=== PATIENT | female | born 1975 | race African-American/Black ===

== ENCOUNTER 2017-01-01 03:51 | Observation (INO) | payer MEDICAID ==
[2017-01-01] VITALS (7 sets, daily range): BP systolic 110–131; BP diastolic 60–72; PULSE 71–88; RESP 16–18; TEMP 97.6–98.2; O2SAT 95–98
[~2017-01-01] VITALS: Ht 152.4 cm; Wt 104.7 kg
[~2017-01-01 03:51] MED LIST: ALBU0.08 NEB; ALBUAER3 INH; ASPI1TAB93; AZEL1SPR2 EACH NARE; BUPR150T3 PO; DULE200A INH; FLUT50SP EACH NARE; GABA600T PO; HYDR-3533 PO; LAMO100T68 PO; LAMO25TA PO; MECL-62 PO; MONT10TA2 PO; NEBUKIT5; NEBULIZER/ADULT1 KIT; PANT40TA3 PO; PRAZ1CAP PO; PROM50TA4 PO; RIZA10TA2; SODI0.9N3 INH; TERI14TA PO; TRAZ100T6 PO; VALT1TAB PO
--- NOTE | 2017-01-01 04:31 | PD ---
HPI Chief Complaint: Pain: Acute or Chronic Time Seen by Provider: 04:17 Travel History International Travel<30 days: No Contact w/Intl Traveler<30days: No Traveled to known affect area: No History of Present Illness HPI The patient is a 41-year-old female that was diagnosed with multiple sclerosis in September. She complains of pain all over her body. This is gradually getting worse in the last 2 days. She has been taking hydrocodone 5/325 every 3 hours instead of every 6 hours. The gabapentin was increased to 600 mg 3 times daily. She feels dehydrated. There is been no fever,, vomiting or diarrhea. She had nausea last night, 24 hours ago. She is allergic to oxycodone but states she has had tramadol and Dilaudid in the past without a problem. PFSH Past Medical History Asthma: Yes Blood Disorders: No Anxiety: No Depression: No Heart Rhythm Problems: No Cancer: No Cardiovascular Problems: No High Cholesterol: No Chest Pain: No Congestive Heart Failure: No COPD: Yes Diabetes: No Diminished Hearing: No Endocrine: No Genitourinary: No Hepatitis: No Hiatal Hernia: No Immune Disorder: No Medical other: Yes (MULTIPLE SCLEROSIS) Musculoskeletal: No Neurologic: Yes (MIGRAINES) Psychiatric: No Reproductive: Yes (HEAVY BLEEDING) Respiratory: Yes (ASTHMA) Migraines: Yes Sleep Apnea: No Thyroid Disease: No Tetanus Vaccination: > 5 Years ?: Not LMP: "LAST MONTH" : 8 Para: 3 Miscarriage: 5 Past Surgical History Section: Yes (x3) Cholecystectomy: Yes Joint Replacement: No Pacemaker: No Tonsillectomy: Yes Other Surgery: Yes ( X3, CHOLECYSTECTOMY, TONSILLECTOMY) Social History Alcohol Use: No Tobacco Use: No Substance Use: No Allergies-Medications (Allergen,Severity, Reaction): Coded Allergies: acetaminophen (Unverified Allergy, Intermediate, RASH, 01/01/17) oxycodone (Unverified Allergy, Intermediate, RASH, 01/01/17) Reported Meds & Prescriptions Reported Meds & Active Scripts Active Proair Hfa 8.5 GM Inh (Albuterol Sulfate) 90 Mcg/Act Aer 1 Puff INH Q4H PRN 108 mcg/actuation Pantoprazole (Pantoprazole Sodium) 40 Mg Tab 40 Mg PO DAILY It is recommended that you do not take this medication for more than 2 weeks at a time. Meclizine (Meclizine HCl) 25 Mg Tab 25 Mg PO DIRECTED PRN Valtrex (Valacyclovir HCl) 1 Gm Tab 1,000 Mg PO DAILY Dulera 120 Act Inh (Mometasone-Formoterol 120 Act Inh) 200-5 Mcg/Act Inh 2 Puff INH BID Fluticasone Nasal [place] 50 Mcg/Act Naspr 50 Mcg EACH NARE BID 50 mcg/spray Albuterol Neb (Albuterol Sulfate) 2.5 Mg/3 Ml Neb 2.5 Mg NEB Q4HR NEB While awake Singulair (Montelukast Sodium) 10 Mg Tab 10 Mg PO HS Sodium Chloride Neb (Sodium Chloride) 0.9 % Neb 3 Ml INH BID Nebulizer Kit/Tubing/Mout (N/A) 1 Kit Kit 1 Kit .ROUTE DIRECTED Nebulizer/Adult Mask (N/A) 1 Kit Kit 1 Kit .ROUTE DIRECTED Azelastine Nasal [place] (Azelastine HCl) 0.1% [place] 1 [place] EACH NARE BID Reported Gabapentin 600 Mg Tab 600 Mg PO TID Excedrin Extra Strength (Qphgnwn-Huvamgfoayocj-Dzmrbyql) 1 Tab Tab Rizatriptan (Rizatriptan Benzoate) 10 Mg Tab Prazosin (Prazosin HCl) 1 Mg Cap 1 Mg PO HS Trazodone (Trazodone HCl) 100 Mg Tablet 200 Mg PO HS Lamotrigine ER (Lamotrigine) 100 Mg Joesph 100 Mg PO DAILY Promethazine HCl 50 Mg Tablet 25 Mg PO TID Aubagio (Teriflunomide) 14 Mg Tab 14 Mg PO DAILY Lamotrigine 25 Mg Tab 25 Mg PO DAILY Bupropion HCl ER 24 HR (Bupropion HCl) 150 Mg Tab 150 Mg PO DAILY Lortab (Hydrocodone-Acetaminophen) 5-325 Mg Tab 1 Tab PO Q6H PRN Review of Systems Except as stated in HPI: all other systems reviewed are Neg Physical Exam Narrative GENERAL: The patient is obese, alert, oriented 3 in moderate to severe distress with her pain. Her vital signs are normal. SKIN: Focused skin assessment warm/dry. No skin rash is present. HEAD: Atraumatic. Normocephalic. EYES: Pupils equal and round. No scleral icterus. No injection or drainage. ENT: No nasal bleeding or discharge. Mucous membranes pink and moist. NECK: Trachea midline. No JVD. CARDIOVASCULAR: Regular rate and rhythm. No murmur appreciated. RESPIRATORY: No accessory muscle use. Clear to auscultation. Breath sounds equal bilaterally. GASTROINTESTINAL: Abdomen soft, non-tender, nondistended. Hepatic and splenic margins not palpable. No guarding or rebound is present. MUSCULOSKELETAL: No obvious deformities. No clubbing. No cyanosis. No edema. NEUROLOGICAL: Awake and alert. No obvious cranial nerve deficits. Motor grossly within normal limits. Normal speech. PSYCHIATRIC: The patient is extremely anxious.; insight and judgment normal. Data Data Last Documented VS Vital Signs Date Time Temp Pulse Resp B/P Pulse Ox O2 Delivery O2 Flow Rate FiO2 01/01/17 05:51 82 18 121/64 98 Room Air 01/01/17 04:00 98.2 Orders Complete Blood Count With Diff (01/01/17 04:26) Comprehensive Metabolic Panel (01/01/17 04:26) Lipase (01/01/17 04:26) Hydromorphone Pf Inj (Dilaudid Pf Inj) (01/01/17 04:45) Ondansetron Inj (Zofran Inj) (01/01/17 04:45) Sodium Chlor 0.9% 1000 Ml Inj (Ns 1000 M (01/01/17 04:45) Ondansetron Inj (Zofran Inj) (01/01/17 05:15) Hydromorphone Pf Inj (Dilaudid Pf Inj) (01/01/17 05:15) Hydromorphone Pf Inj (Dilaudid Pf Inj) (01/01/17 06:30) Labs Laboratory Tests Test 01/01/17 04:35 White Blood Count 5.3 TH/MM3 Red Blood Count 4.17 MIL/MM3 Hemoglobin 11.3 GM/DL Hematocrit 34.9 % Mean Corpuscular Volume 83.7 FL Mean Corpuscular Hemoglobin 27.0 PG Mean Corpuscular Hemoglobin 32.3 % Concent Red Cell Distribution Width 16.1 % Platelet Count 201 TH/MM3 Mean Platelet Volume 8.3 FL Neutrophils (%) (Auto) 37.9 % Lymphocytes (%) (Auto) 48.4 % Monocytes (%) (Auto) 9.7 % Eosinophils (%) (Auto) 3.7 % Basophils (%) (Auto) 0.3 % Neutrophils # (Auto) 2.0 TH/MM3 Lymphocytes # (Auto) 2.6 TH/MM3 Monocytes # (Auto) 0.5 TH/MM3 Eosinophils # (Auto) 0.2 TH/MM3 Basophils # (Auto) 0.0 TH/MM3 CBC Comment DIFF FINAL Differential Comment Sodium Level 139 MEQ/L Potassium Level 3.8 MEQ/L Chloride Level 109 MEQ/L Carbon Dioxide Level 23.0 MEQ/L Anion Gap 7 MEQ/L Blood Urea Nitrogen 10 MG/DL Creatinine 0.99 MG/DL Estimat Glomerular Filtration 74 ML/MIN Rate Random Glucose 90 MG/DL Calcium Level 8.1 MG/DL Total Bilirubin 0.2 MG/DL Aspartate Amino Transf 20 U/L (AST/SGOT) Alanine Aminotransferase 25 U/L (ALT/SGPT) Alkaline Phosphatase 90 U/L Total Protein 7.1 GM/DL Albumin 3.2 GM/DL Lipase 61 U/L MDM Medical Decision Making Medical Screen Exam Complete: Yes Emergency Medical Condition: Yes Medical Record Reviewed: Yes Differential Diagnosis Multiple sclerosis with intractable pain, drug seeking behaviorunlikely, anxiety, conversion reaction Narrative Course The patient's pain appears to be real. She has been given 2.5 mg of Dilaudid IV and she still states the pain is a 10 over 10. At this point I do not think we can increase the Dilaudid and send her home. The patient will be admitted to the [facility] service. Diagnosis Primary Impression: Multiple sclerosis Additional Impression: Intractable pain Spencer Domingo MD Jan 01, 2017 04:31
[2017-01-01] MEDS: SODIUM CHLOR 0.9% 1000 ML INJ 1,000 ML IV SCH ×2 (04:44→05:03)
[2017-01-01 04:45] LABS: BASOPHIL % 0.3 % (0.0-2.0); EOSINOPHIL # 0.2 TH/MM3 (0-0.4); EOSINOPHIL % 3.7 % (0.0-4.0); HEMATOCRIT 34.9 % (35.0-46.0); HEMO FLAGS DIFF FINAL; LYMPH % 48.4 % (9.0-44.0); LYMPHOCYTE # 2.6 TH/MM3 (1.0-4.8); MEAN CELL VOLUME 83.7 FL (80.0-100.0); MEAN CORPUSCULAR HGB CONC 32.3 % (32.0-36.0); MONO % 9.7 % (0.0-8.0); NEUT % 37.9 % (16.0-70.0); PLATELET COUNT 201 TH/MM3 (150-450); RED BLOOD COUNT 4.17 MIL/MM3 (4.00-5.30); RED CELL DISTRIBUTION WIDTH 16.1 % (11.6-17.2); WHITE BLOOD COUNT 5.3 TH/MM3 (4.0-11.0)
[2017-01-01] MEDS ORDERED: HYDROmorphone HCL PF 1 MG/ML VIAL IVP ONE ×3 (04:45→06:30)
[2017-01-01] MEDS ORDERED: ONDANSETRON HCL 4 MG/2 ML VIAL IV ONE ×2 (04:45→05:15)
[2017-01-01 04:57] LABS: CHLORIDE 109 MEQ/L (98-107); POTASSIUM 3.8 MEQ/L (3.5-5.1); SODIUM (NA) 139 MEQ/L (136-145)
[2017-01-01 05:01] LABS: ANION GAP 7 MEQ/L (5-15); BLOOD UREA NITROGEN 10 MG/DL (7-18)
[2017-01-01 05:03] LABS: ALT (GPT) 25 U/L (10-53)
[2017-01-01 05:04] LABS: AST (GOT) 20 U/L (15-37); GLOMERULAR FILTRATION RATE 74 ML/MIN (>89)
[2017-01-01 05:05] LABS: TOTAL BILIRUBIN ADULT 0.2 MG/DL (0.2-1.0)
[2017-01-01 05:06] LABS: ALKALINE PHOSPHATASE 90 U/L (45-117)
[2017-01-01] MEDS ORDERED: SODIUM CHLOR 0.9% 1000 ML INJ 1,000 ML IV SCH (06:37)
[2017-01-01] MEDS ORDERED: BISACODYL 10 MG SUPP RECTAL PRN (06:45)
[2017-01-01] MEDS ORDERED: HYDROmorphone HCL 2 MG TAB PO PRN (06:45)
[2017-01-01] MEDS ORDERED: MAGNESIUM HYDROXIDE SUSP 30 ML CUP PO PRN (06:45)
[2017-01-01] MEDS ORDERED: ONDANSETRON HCL 4 MG/2 ML VIAL IVP PRN (06:45)
[2017-01-01] MEDS ORDERED: SODIUM CHLORIDE 0.9% FLUSH 10 ML FLUSH IV FLUSH PRN (06:45)
[2017-01-01] MEDS ORDERED: SENNOSIDES 8.6 MG TAB PO PRN (06:45)
[2017-01-01] MEDS ORDERED: LACTULOSE SYRUP 20 GM/30 ML CUP PO PRN (06:45)
[2017-01-01] MEDS: HYDROmorphone HCL PF 1 MG/ML VIAL IV PRN ×2 (07:47→11:35)
[2017-01-01] MEDS: RESP: ALBUTEROL 2.5 MG/3 ML NEB (SCH) NEB ×2 (08:10→11:47)
[2017-01-01] MEDS ORDERED: PANTOPRAZOLE SOD 40 MG DELAYED RELEASE TAB PO SCH (09:00)
[2017-01-01] MEDS ORDERED: lamoTRIgine 25 MG TAB PO SCH (09:00)
[2017-01-01] MEDS ORDERED: SODIUM CHLORIDE 0.9% FLUSH 10 ML FLUSH IV FLUSH SCH (09:00)
[2017-01-01] MEDS ORDERED: FLUTICASONE PROPIONATE 50 MCG/ACT 16 GM NASAL SPRAY EACH NARE SCH (09:00)
[2017-01-01] MEDS ORDERED: buPROPion HCL 150 MG SUSTAINED RELEASE TAB PO SCH (09:00)
[2017-01-01] MEDS ORDERED: GABAPENTIN 300 MG CAP PO SCH (09:00)
[2017-01-01] MEDS ORDERED: DOCUSATE SODIUM 50 MG/SENNA 8.6 MG TAB PO SCH (09:00)
[2017-01-01] MEDS ORDERED: MOMETASONE FORMOTEROL INH SCH (09:00)
[2017-01-01] MEDS ORDERED: LAMOTRIGINE 100 MG PO SCH (09:00)
[2017-01-01] MEDS ORDERED: TERIFLUNOMIDE 14 MG PO SCH (09:00)
--- NOTE | 2017-01-01 10:44 | HHI.HP ---
[facility] Candace Pena MD Admission Diagnosis multiple sclerosis with intractable pain Diagnoses: (1) Intractable pain Diagnosis: Principal (2) Multiple sclerosis Diagnosis: Secondary Chief Complaint: Intractable pain Travel History International Travel<30 Days: No Contact w/Intl Traveler <30 Da: No Traveled to Known Affected Are: No History of Present Illness Written by Anthony Hensley, acting as scribe for Dr. Clemente on 01/01/17 at 10: 34. 41-year-old Romanian female with known history of multiple cirrhosis, COPD, vertigo, bipolar, anxiety who presented to hospital because of intractable pain. Patient states that she has had chronic pain since June 2013. She has had multiple evaluations in outpatient setting and recently been diagnosed with multiple sclerosis on October 08, 2016 by neurologist, Dr. Loomis. Patient pain was tolerable when she was on oxycodone and Neurontin, however the pain has progressively getting worse and she is started physical therapy several weeks ago. And her medication was just adjusted by her neurologist. Patient states that her last 2 days the pain has gotten significantly worse and comes in waves with pain scale of 10/10, she indicates she takes her pain medication only last for short period of time and only brings pain down to 7/10. She states that she 's been having upper extremity pain which is worsening with paresthesia, muscle cramps, and hyperesthesia of the hands. Patient also indicates that over the last week she is started a new form of therapy (Fluidotheryapy) in which she states that after the first time she did it she has significant relief of her pain, however the pain has significantly got worse since this therapy started. Patient came to emergency department because she cannot control the pain at home. Patient was given a total of 2.5 mg of Dilaudid in the emergency department with no significant relief. Because patient's pain cannot be controlled it was recommended by the ER physician that the patient be admitted for further evaluation and management. Review of Systems Musculoskeletal: COMPLAINS OF: Joint pain, Muscle aches Neurologic: COMPLAINS OF: Paresthesias Except as stated in HPI: all other systems reviewed are Neg Past Family Social History Past Medical History Chronic pain Multiple sclerosis Chronic obstructive pulmonary disease Vertigo Bipolar Anxiety Past Surgical History 3 Right breast lumpectomy Cholecystectomy Tonsillectomy Allergies: Coded Allergies: acetaminophen (Unverified Allergy, Intermediate, RASH, 01/01/17) oxycodone (Unverified Allergy, Intermediate, RASH, 01/01/17) Family History Reviewed is significant for mother still alive at 64 years of age with diabetes and hypertension, father still alive at 64 years age, however does not know his medical conditions, mother alive at 27 with diabetes, sister alive at 34 with 2 strokes Social History Patient denies any tobacco, alcohol or illicit drugs Physical Exam Vital Signs Vital Signs Date Time Temp Pulse Resp B/P Pulse Ox O2 Delivery O2 Flow Rate FiO2 01/01/17 08:42 97.6 77 17 110/70 95 01/01/17 08:17 18 01/01/17 07:52 71 16 112/72 95 Room Air 01/01/17 06:39 84 18 110/60 98 Room Air 01/01/17 05:51 82 18 121/64 98 Room Air 01/01/17 04:49 84 18 118/61 98 Room Air 01/01/17 04:38 92 18 01/01/17 04:00 98.2 88 18 131/65 97 Room Air Physical Exam GENERAL: Well-developed, obese with BMI 45.1, tearful and shaking her right hand HEENT: Head is normocephalic without any lesions or masses noted. Facial features are symmetric. Eyes: Pupils equal round reactive to light. Extraocular muscles are intact. Conjunctivae were clear. Oropharyngeal: Pharynx without any erythema edema. Tongue is midline without deviation. Buccal mucosa is moist without any masses or lesions NECK: Supple without any masses. Trachea midline no deviation. No JVD, no bruits are appreciated CARDIAC: Regular rhythm, regular rate. S1/S2 are heard. No murmurs gallops or rubs. LUNGS: Clear to auscultation bilaterally. No wheeze, rhonchi or rales. No use of accessory muscles on inspiration or expiration. ABDOMEN: Soft, nontender. Nondistended. Bowel sounds heard in all 4 quadrants. No organomegaly or masses. Negative rebound, negative guarding EXTREMITIES: No edema, pulses are equal bilaterally. No cyanosis or clubbing NEUROLOGY: Mood and affect appear appropriate. Cranial nerves II through XII grossly intact. Muscle strength 5/5 in upper and lower extremities bilaterally. Deep tendon reflexes are 2+ in upper and lower extremities bilaterally. Laboratory Laboratory Tests Test 01/01/17 04:35 White Blood Count 5.3 Red Blood Count 4.17 Hemoglobin 11.3 Hematocrit 34.9 Mean Corpuscular Volume 83.7 Mean Corpuscular Hemoglobin 27.0 Mean Corpuscular Hemoglobin 32.3 Concent Red Cell Distribution Width 16.1 Platelet Count 201 Mean Platelet Volume 8.3 Neutrophils (%) (Auto) 37.9 Lymphocytes (%) (Auto) 48.4 Monocytes (%) (Auto) 9.7 Eosinophils (%) (Auto) 3.7 Basophils (%) (Auto) 0.3 Neutrophils # (Auto) 2.0 Lymphocytes # (Auto) 2.6 Monocytes # (Auto) 0.5 Eosinophils # (Auto) 0.2 Basophils # (Auto) 0.0 CBC Comment DIFF FINAL Differential Comment Sodium Level 139 Potassium Level 3.8 Chloride Level 109 Carbon Dioxide Level 23.0 Anion Gap 7 Blood Urea Nitrogen 10 Creatinine 0.99 Estimat Glomerular Filtration 74 Rate Random Glucose 90 Calcium Level 8.1 Total Bilirubin 0.2 Aspartate Amino Transf 20 (AST/SGOT) Alanine Aminotransferase 25 (ALT/SGPT) Alkaline Phosphatase 90 Total Protein 7.1 Albumin 3.2 Lipase 61 Result Diagram: 01/01/17 0435 01/01/17 0435 Assessment and Plan Assessment and Plan Intractable diffuse pain, paresthesia, hyperesthesia in a patient with known history of chronic pain and recently diagnosed multiple sclerosis Continue patient's home medication, narcotics and Neurontin add NSAID patient will need to follow-up with her outpatient neurologist and or pain management for continued management and care Chronic affective pulmonary disease Continue O2 supplementation maintain O2 sats greater than 92% Duo nebs as needed Bipolar/anxiety Continue home medications DVT prevention Sequential compression devices Discussed Condition With Patient, family at bedside Medical Decision Making Impression and Plan This note was transcribed by tee hensley. I, Dr. Angelica Clemente personally performed the history, physical exam, and medical decision making; and confirmed the accuracy of the information in the transcribed note. Authenticated by Dr. Angelica Clemente on 01/01/17 at 10:52. The exam, history, and the medical decision-making described in the above note were completed with the assistance of the mid-level provider. I reviewed and agree with the findings presented. I attest that I had a [id number] encounter with the patient on the same day, and personally performed and documented my assessment and findings in the medical record. No evidence of MS flare, Patient will need pain management follow up as an outpatient Anthony Hensley Jan 01, 2017 10:44 Angelica Clemente MD Jan 01, 2017 10:53
[2017-01-01] MEDS ORDERED: NAPR550T3 PO (10:49)
--- NOTE | 2017-01-01 10:50 | HHI.DCPOC ---
Discharge Care Plan Diagnosis: (1) MS (multiple sclerosis) Goals to Promote Your Health * To prevent worsening of your condition and complications * To maintain your health at the optimal level Directions to Meet Your Goals Take your medications as prescribed Follow your dietary instruction Follow activity as directed Keep your appointments as scheduled Take your immunizations and boosters as scheduled If your symptoms worsen call your PCP, if no PCP go to Urgent Care Center or Emergency Room Smoking is Dangerous to Your Health. Avoid second hand smoke Call the 24-hour hour crisis hotline for domestic abuse at Angelica Clemente MD Jan 01, 2017 10:50
[2017-01-01] MEDS ORDERED: PRAZOSIN HCL 1 MG CAP PO SCH (21:00)
[2017-01-01] MEDS ORDERED: traZODone HCL 100 MG TAB PO SCH (21:00)
[2017-01-01] MEDS ORDERED: MONTELUKAST SODIUM 10 MG TAB PO SCH (21:00)
[2017-01-02] MEDS ORDERED: PNEUMOCOCCAL POLYVALENT INJ 25 MCG/0.5 ML SYR IM ONE (10:00)
[2017-01-28] MEDS ORDERED: ALBUAER3 INH (13:20)
[2017-02-22] MEDS ORDERED: LAMO200T54 PO (09:19)
[2017-02-22] MEDS ORDERED: ALBU0.08 NEB (09:55)
[2017-02-22] MEDS ORDERED: IBUP800T23 PO (09:55)
[2017-02-22] MEDS ORDERED: PANT40TA3 PO (09:55)
[2017-02-22] MEDS ORDERED: MECL-62 PO ×2 (09:55→11:41)
[2017-02-22] MEDS ORDERED: NAPR550T3 PO (09:55)
[2017-02-22] MEDS ORDERED: [UNRECOGNIZED DRUG - CODE] (11:03)
[2017-02-22] MEDS ORDERED: [UNRECOGNIZED DRUG - OTHER] PO (11:12)
[2017-02-24] MEDS ORDERED: NAPR500T PO (08:19)
[2017-02-24] MEDS ORDERED: ERGO1CAP30 PO (15:05)
[2017-02-28] MEDS ORDERED: DULE200A INH ×2 (10:20→10:22)
[2017-02-28] MEDS ORDERED: FLUT50SP EACH NARE ×2 (10:20→10:22)
== END 2017-01-01 11:54 | disposition home or self-care (01) ==
LOC: PHED 03:51 → PHEDA 06:39 → PH3B 08:01
PROVIDERS: ADMIT Hospitalist; ATTEND Hospitalist
DX: G35 Multiple sclerosis (principal); J44.9 Chronic obstructive pulmonary disease, unspecified; F41.9 Anxiety disorder, unspecified; F31.9 Bipolar disorder, unspecified; Z79.899 Other long term (current) drug therapy; Z88.5 Allergy status to narcotic agent
CPT/HCPCS: 80053; 83690; 85025; 94664; 96361; 96374; 96375; 96376; 99285; G0378; J1170; J2405; J7030; J7613

== ENCOUNTER 2017-04-23 09:10 | Emergency (ER) | payer MEDICAID ==
[~2017-04-23] VITALS: Ht 152.4 cm; Wt 97.8 kg
[~2017-04-23 09:10] MED LIST changes: -BUPR150T3 PO; +CYCL5TAB PO; -HYDR-3533 PO; +HYDR1SOL6 PO; +IBUP1TAB7 PO; -LAMO100T68 PO; +LAMO200T54 PO; -LAMO25TA PO; +NAPR500T2 PO; +OMEP20TA93 PO; +OMEP40CA2 PO; -PANT40TA3 PO; +SUMA20SP NASAL; +TRAZ100T10 PO; -TRAZ100T6 PO; +VITA500012 PO; +[UNRECOGNIZED DRUG - OTHER] PO
[2017-04-23 09:17] VITALS: BP 176/68; PULSE 106; RESP 16; TEMP 98.2; O2SAT 97
--- NOTE | 2017-04-23 09:25 | PD ---
HPI Chief Complaint: Chest Pain Time Seen by Provider: 09:23 Travel History International Travel<30 days: No Contact w/Intl Traveler<30days: No Traveled to known affect area: No History of Present Illness HPI LEFT AREA CHEST PAIN - INTERMITTANT IN NATURE, NON RADIATING, 12/23, onset 0330 THIS AM PRESENT ABOUT 6HRS POST PAIN. CURRENTLY SHE IS PAIN FREE. NO ALLEVIATING /AGGRAVATING FACTORS. PATIENT'S ASSOC FACTORS DO NOT INCLUDE COUGH/ FEVER/RUNNY NOSE/N/V/D/CP/ABDPAIN/BACKPAIN/ PFSH Past Medical History Hx Anticoagulant Therapy: No Asthma: Yes Blood Disorders: No Anxiety: No Depression: No Heart Rhythm Problems: No Cancer: No Cardiovascular Problems: No High Cholesterol: No Chest Pain: No Congestive Heart Failure: No COPD: Yes Diabetes: No Diminished Hearing: No Endocrine: No Genitourinary: No Hepatitis: No Hiatal Hernia: No Immune Disorder: No Musculoskeletal: No Neurologic: Yes (MIGRAINES) Psychiatric: No Reproductive: Yes (HEAVY BLEEDING) Respiratory: Yes (ASTHMA) Migraines: Yes Sleep Apnea: No Thyroid Disease: No ?: Not : 8 Para: 3 Miscarriage: 5 Past Surgical History Section: Yes (x3) Cholecystectomy: Yes Gynecologic Surgery: Yes (lumpectomy right breast August 2016) Joint Replacement: No Pacemaker: No Tonsillectomy: Yes Other Surgery: Yes ( X3, CHOLECYSTECTOMY, TONSILLECTOMY) Social History Alcohol Use: No Tobacco Use: No Substance Use: No Allergies-Medications (Allergen,Severity, Reaction): Coded Allergies: acetaminophen (Verified Allergy, Intermediate, RASH, 04/23/17) oxycodone (Verified Allergy, Intermediate, RASH, 04/23/17) Reported Meds & Prescriptions Reported Meds & Active Scripts Active Flexeril (Cyclobenzaprine HCl) 5 Mg Tab 5 Mg PO TID DO NOT take with any pain medications. Omeprazole 20 Mg Tab 20 Mg PO DAILY Singulair (Montelukast Sodium) 10 Mg Tab 10 Mg PO HS Dulera 120 Act Inh (Mometasone-Formoterol 120 Act Inh) 200-5 Mcg/Act Inh 2 Puff INH BID Fluticasone Nasal [place] 50 Mcg/Act Naspr 50 Mcg EACH NARE BID 50 mcg/spray Ergocalciferol 50,000 Unit Cap 50,000 Units PO Q7D Naproxen 500 Mg Tab 500 Mg PO BID Do not take with any other NSAID Meclizine (Meclizine HCl) 25 Mg Tab 50 Mg PO DAILY PRN 1-2 tabs as needed Numoisyn Lozenge (Artificial Saliva Lozenge) 1 Lozg 1 Lozenge PO DIRECTED Max 16 per day Ibuprofen 800 Mg Tab 800 Mg PO Q8H PRN Do not take with any other NSAIDs - use a little as possibe to protect your kidney function. Albuterol Neb (Albuterol Sulfate) 2.5 Mg/3 Ml Neb 2.5 Mg NEB Q4HR NEB While awake Proair Hfa 8.5 GM Inh (Albuterol Sulfate) 90 Mcg/Act Aer 1 Puff INH Q4H PRN 108 mcg/actuation Valtrex (Valacyclovir HCl) 1 Gm Tab 1,000 Mg PO DAILY Nebulizer Kit/Tubing/Mout (N/A) 1 Kit Kit 1 Kit .ROUTE DIRECTED Azelastine Nasal [place] (Azelastine HCl) 0.1% [place] 1 [place] EACH NARE BID Reported Onzetra Xsail Nasal (Sumatriptan Succinate) 11 Mg Eitan 11 Mcg EACH NARE ONCE If headache has not resolved within 2 hours or returns, the dose may be repeated once, 2 hours after the first dose. Maximum: 44 mg [4 nosepieces] per 24 hours Protonix (Pantoprazole Sodium) 40 Mg Tab 40 Mg PO DAILY Excedrin Migraine Caplet (Aspirin/Acetaminophen/Caffeine) 250 Mg-250 Mg-65 Mg Tablet Apple Cider Vinegar (Cider Vinegar) 300 Mg Tablet Hydrocodon-Acetamin 7.5-325/15 (Hydrocodone/Acetaminophen) 7.5 Mg-325 Mg/15 Ml ( 15 Ml) Solution 1 Tab PO QID Sumatriptan Nasal [place] 20 Mg/Act [place] 1 [place] NASAL ONCE [place] in one nostril. If headache has not resolved within 2 hours or returns, the dose may be repeated once after 2 hours Lamotrigine ER (Lamotrigine) 200 Mg Joesph 200 Mg PO BID Gabapentin 600 Mg Tab 600 Mg PO TID Excedrin Extra Strength (Svqqzgo-Znpcgxcatytpj-Xwgflnrw) 1 Tab Tab Rizatriptan (Rizatriptan Benzoate) 10 Mg Tab Prazosin (Prazosin HCl) 1 Mg Cap 1 Mg PO HS Trazodone (Trazodone HCl) 100 Mg Tablet 200 Mg PO HS Promethazine HCl 50 Mg Tablet 25 Mg PO TID Aubagio (Teriflunomide) 14 Mg Tab 14 Mg PO DAILY Review of Systems Except as stated in HPI: all other systems reviewed are Neg General / Constitutional: No: Fever Eyes: No: Visual changes HENT: No: Headaches Cardiovascular: Positive: Chest Pain or Discomfort Respiratory: No: Shortness of Breath Gastrointestinal: No: Abdominal Pain Genitourinary: No: Dysuria Musculoskeletal: No: Pain Skin: No Rash Neurologic: No: Weakness Psychiatric: No: Depression Endocrine: No: Polydipsia Hematologic/Lymphatic: No: Easy Bruising Physical Exam Narrative GENERAL: SKIN: Warm and dry. HEAD: Atraumatic. Normocephalic. EYES: Pupils equal and round. No scleral icterus. No injection or drainage. ENT: No nasal bleeding or discharge. Mucous membranes pink and moist. NECK: Trachea midline. No JVD. CARDIOVASCULAR: Regular rate and rhythm. RESPIRATORY: No accessory muscle use. Clear to auscultation. Breath sounds equal bilaterally. GASTROINTESTINAL: Abdomen soft, non-tender, nondistended. MUSCULOSKELETAL: Extremities without clubbing, cyanosis, or edema. No obvious deformities. NEUROLOGICAL: Awake and alert. No obvious cranial nerve deficits. Motor grossly within normal limits. Five out of 5 muscle strength in the arms and legs. Normal speech. PSYCHIATRIC: Appropriate mood and affect; insight and judgment normal. Data Data Last Documented VS Vital Signs Date Time Temp Pulse Resp B/P (MAP) Pulse Ox O2 Delivery O2 Flow Rate FiO2 04/23/17 13:48 78 18 147/91 (109) 98 Nasal Cannula 2.00 04/23/17 09:17 98.2 Orders Orders Electrocardiogram (04/23/17 09:25) B-Type Natriuretic Peptide (04/23/17 09:25) Ckmb (Isoenzyme) Profile (04/23/17 09:25) Complete Blood Count With Diff (04/23/17 09:25) Comprehensive Metabolic Panel (04/23/17 09:25) D-Dimer (04/23/17 09:25) Prothrombin Time / Inr (Pt) (04/23/17 09:25) Act Partial Throm Time (Ptt) (04/23/17 09:25) Troponin I (04/23/17 09:25) Lipase (04/23/17 09:25) Chest, Single Ap (04/23/17 09:25) Ecg Monitoring (04/23/17 09:25) Bilateral Bp Monitoring (04/23/17 09:25) Iv Access Insert/Monitor (04/23/17 09:25) Oximetry (04/23/17 09:25) Oxygen Administration (04/23/17 09:25) Sodium Chlorid 0.9% 500 Ml Inj (Ns 500 M (04/23/17 09:30) CKMB (04/23/17 09:30) CKMB% (04/23/17 09:30) Methylprednisolone So Succ Inj (Solumedr (04/23/17 12:45) Troponin I (04/23/17 12:40) Labs Laboratory Tests Test 04/23/17 09:30 04/23/17 12:45 White Blood Count 6.6 TH/MM3 Red Blood Count 4.12 MIL/MM3 Hemoglobin 11.3 GM/DL Hematocrit 34.7 % Mean Corpuscular Volume 84.4 FL Mean Corpuscular Hemoglobin 27.5 PG Mean Corpuscular Hemoglobin Concent 32.6 % Red Cell Distribution Width 16.2 % Platelet Count 278 TH/MM3 Mean Platelet Volume 8.7 FL Neutrophils (%) (Auto) 52.5 % Lymphocytes (%) (Auto) 34.4 % Monocytes (%) (Auto) 9.0 % Eosinophils (%) (Auto) 3.7 % Basophils (%) (Auto) 0.4 % Neutrophils # (Auto) 3.5 TH/MM3 Lymphocytes # (Auto) 2.3 TH/MM3 Monocytes # (Auto) 0.6 TH/MM3 Eosinophils # (Auto) 0.2 TH/MM3 Basophils # (Auto) 0.0 TH/MM3 CBC Comment DIFF FINAL Differential Comment Prothrombin Time 9.8 SEC Prothromb Time International Ratio 1.0 RATIO Activated Partial Thromboplast Time 26.9 SEC D-Dimer Quantitative (PE/DVT) 0.32 MG/L FEU Blood Urea Nitrogen 13 MG/DL Creatinine 0.85 MG/DL Random Glucose 111 MG/DL Total Protein 7.5 GM/DL Albumin 3.4 GM/DL Calcium Level 8.9 MG/DL Alkaline Phosphatase 106 U/L Aspartate Amino Transf (AST/SGOT) 20 U/L Alanine Aminotransferase (ALT/SGPT) 24 U/L Total Bilirubin 0.3 MG/DL Sodium Level 138 MEQ/L Potassium Level 3.9 MEQ/L Chloride Level 107 MEQ/L Carbon Dioxide Level 21.0 MEQ/L Anion Gap 10 MEQ/L Estimat Glomerular Filtration Rate 89 ML/MIN Total Creatine Kinase 201 U/L Creatine Kinase MB 0.7 NG/ML Creatine Kinase MB % 0.3 % Troponin I LESS THAN 0.02 NG/ML LESS THAN 0.02 NG/ML B-Type Natriuretic Peptide LESS THAN 2 PG/ML Lipase 86 U/L MDM Medical Decision Making Medical Screen Exam Complete: Yes Emergency Medical Condition: Yes Medical Record Reviewed: Yes Interpretation(s) ekg: nsr 92, nl intervals, no stemi pattern Differential Diagnosis pna v mi v pe v pericardial effusion Narrative Course CXR NEG FOR PNA/PTX, NO E/O STEMI OR NONSTEMI ON SERIAL TROPONINS WHICH WERE NEARLY 10 HRS POST INITIAL COMPLAINT. PATIENT LIKELY HAS MS EXACERBATION AND FOR THIS REASON PATIETN WAS GIVEN SOLUMEDROL IV. PATIENT WILL BE D/C HOME ON MEDROL DOSEPAK Diagnosis Primary Impression: CHEST PAIN Patient Instructions: Chest Pain (ED), General Instructions, Multiple Sclerosis (GEN) Scripts Methylprednisolone Dosepak (Medrol Dosepak) 4 Mg Dspk 4 MG PO DIRECTED, #1 DSPK 0 Refills Per Pharmacist direction Prov: Rosas Ma MD 04/23/17 Disposition: 01 DISCHARGE HOME Condition: Stable Rosas Ma MD Apr 23, 2017 09:25
[2017-04-23] MEDS ORDERED: APPL300T2 (09:28)
[2017-04-23] MEDS ORDERED: PROT40TA PO (09:28)
[2017-04-23] MEDS ORDERED: EXCETAB31 (09:28)
[2017-04-23] MEDS ORDERED: [UNRECOGNIZED DRUG - CODE] EACH NARE (09:29)
[2017-04-23] MEDS ORDERED: SODIUM CHLORID 0.9% 500 ML INJ 500 ML IV ONE (09:30)
[2017-04-23 09:36] VITALS: RESP 16; O2SAT 98
[2017-04-23 09:52] LABS: AUTOMATED NEUTROPHIL # 3.5 TH/MM3 (1.8-7.7); BASOPHIL % 0.4 % (0.0-2.0); EOSINOPHIL # 0.2 TH/MM3 (0-0.4); EOSINOPHIL % 3.7 % (0.0-4.0); HEMATOCRIT 34.7 % (35.0-46.0); HEMO FLAGS DIFF FINAL; LYMPH % 34.4 % (9.0-44.0); LYMPHOCYTE # 2.3 TH/MM3 (1.0-4.8); MEAN CELL VOLUME 84.4 FL (80.0-100.0); MEAN CORPUSCULAR HEMOGLOBIN 27.5 PG (27.0-34.0); MEAN CORPUSCULAR HGB CONC 32.6 % (32.0-36.0); NEUT % 52.5 % (16.0-70.0); PLATELET COUNT 278 TH/MM3 (150-450); RED BLOOD COUNT 4.12 MIL/MM3 (4.00-5.30); RED CELL DISTRIBUTION WIDTH 16.2 % (11.6-17.2); WHITE BLOOD COUNT 6.6 TH/MM3 (4.0-11.0)
[2017-04-23 09:59] LABS: CHLORIDE 107 MEQ/L (98-107); POTASSIUM 3.9 MEQ/L (3.5-5.1); SODIUM (NA) 138 MEQ/L (136-145)
--- NOTE | 2017-04-23 10:00 | RADRPT ---
EXAM DATE/TIME: 04/23/2017 09:34 [facility] COMPARISON: No previous studies available for comparison. INDICATIONS : Woke up with chest pain today MEDICAL HISTORY : asthma SURGICAL HISTORY : None. ENCOUNTER: Initial ACUITY: 1 day PAIN SCORE: 8/10 LOCATION: Left chest mid FINDINGS: A single view of the chest demonstrates the lungs to be symmetrically aerated without evidence of mas s, infiltrate or effusion. The cardiomediastinal contours are unremarkable. Osseous structures are intact. CONCLUSION: 1. No acute cardiopulmonary disease. Marquis Medrano MD on April 23, 2017 at 9:58 Board Certified Radiologist. This report was verified electronically.
[2017-04-23 10:03] LABS: ANION GAP 10 MEQ/L (5-15)
[2017-04-23 10:04] LABS: BLOOD UREA NITROGEN 13 MG/DL (7-18)
[2017-04-23 10:06] LABS: ALT (GPT) 24 U/L (10-53); AST (GOT) 20 U/L (15-37); GLOMERULAR FILTRATION RATE 89 ML/MIN (>89)
[2017-04-23 10:07] LABS: TOTAL BILIRUBIN ADULT 0.3 MG/DL (0.2-1.0)
[2017-04-23 10:08] LABS: ALKALINE PHOSPHATASE 106 U/L (45-117); APTT (PATIENT) 26.9 SEC (24.3-30.1); CREATINE KINASE 201 U/L (26-192); PROTHROMBIN TIME - PATIENT 9.8 SEC (9.8-11.6)
[2017-04-23 10:21] LABS: CKMB 0.7 NG/ML (0.5-3.6)
[2017-04-23 10:31] VITALS: BP_SYST 139; BP_SYST 159; BP_DIAS 73; BP_DIAS 79; PULSE 95; RESP 16; O2SAT 100
[2017-04-23 10:53] VITALS: BP 157/87; PULSE 100; RESP 18; O2SAT 100
[2017-04-23 11:58] VITALS: BP 151/73; PULSE 88; RESP 18; O2SAT 100
[2017-04-23] MEDS ORDERED: methylPREDNISolone SOD SUCC 125 MG/2 ML VIAL IV PUSH ONE (12:45)
--- NOTE | 2017-04-23 13:12 | EKG ---
Date Performed: 04/23/2017 Time Performed: 09:22:45 PTAGE: 41 years EKG: Sinus rhythm NORMAL ECG NO PREVIOUS TRACING DOCTOR: Waldemar Serrano Interpretating Date/Time 04/23/2017 13:10:04
[2017-04-23 13:48] VITALS: BP 147/91; PULSE 78; RESP 18; O2SAT 98
[2017-04-23] MEDS ORDERED: MEDR4PAK PO (14:11)
== END 2017-04-23 14:41 | disposition home or self-care (01) ==
LOC: PHED 09:10
DX: R07.9 Chest pain, unspecified (principal); J44.9 Chronic obstructive pulmonary disease, unspecified; G43.909 Migraine, unspecified, not intractable, without status migrainosus
CPT/HCPCS: 71010; 80053; 82550; 82552; 83690; 83880; 84484; 85025; 85379; 85610; 85730; 93005; 96361; 96374; 99285; J2930; J7040

== ENCOUNTER → 2017-09-29 | Day surgery (SDC) | END | disposition home or self-care (01) | DX: N39.41 Urge incontinence (principal); N32.81 Overactive bladder | CPT/HCPCS: 00300; 36415; 64561; 76000; 85025; C1778; J0690; J1100; J2250; J2405; J3010; J8501 ==

== ENCOUNTER → 2017-10-06 | Day surgery (SDC) | payer MEDICAID ==
[~2017-10-06] VITALS: Ht 152.4 cm; Wt 94.6 kg
[~2017-10-06] MED LIST changes: +APPL300T2 PO; +APREPITANT 40 MG CAP ONE; -ASPI1TAB93; +ASPI1TAB93 PO; +CHLORHEXIDINE GLUCONATE 2 % 1 PACK (2 CLOTHS) TOPICAL PRN; +DO NOT ADM ANY ANTICOAGULANT DRUGS PRN; +FAMOTIDINE 20 MG/2 ML VIAL ONE; +HYDROmorphone HCL PF 2 MG/ML VIAL IV PUSH PRN; +KETAMINE HCL 50 MG/5 ML SYRINGE ONE; +LACTATED RINGER'S 1000 ML IV PRN; +LIDOCAINE 1%/EPINEPHrine 1:100,000 SOLN 30 ML VIAL ONE; +LIDOCAINE HCL 1% PF 5 ML SYRINGE OTHER ONE; +MEDR4PAK PO; +MEPERIDINE HCL 50 MG/ML VIAL ONE; +METOPROLOL TARTRATE 25 MG TAB PO PRN; +MIDAZOLAM HCL 2 MG/2 ML VIAL ONE; -NEBULIZER/ADULT1 KIT; -OMEP40CA2 PO; +ONDANSETRON HCL 4 MG/2 ML VIAL IV ONE; +ONDANSETRON HCL 4 MG/2 ML VIAL IV PUSH PRN; +ONDANSETRON HCL 4 MG/2 ML VIAL ONE; +ONDANSETRON ODT 4 MG TAB PO PRN; +POVIDONE IODINE 5% (ANTISEPSIS KIT) 4 APPLICATIONS EACH NARE PRN; +PROPOFOL 200 MG/20 ML AMP IV ONE; +PROT40TA PO; -RIZA10TA2; +RIZA10TA2 PO; -SODI0.9N3 INH; +SODIUM CHLORID 0.9% 500 ML IV PRN; +TRAM50TA PO; +[UNRECOGNIZED DRUG - CODE] EACH NARE; +ceFAZolin 1,000 MG/NS 100 ML IV SCH; +traMADol HCL 50 MG TAB PO PRN
--- NOTE | 2017-10-06 10:16 | PD.OP ---
Operative Report Date of Surgery: October 06, 2017 Preoperative Diagnosis: Urge incontinence Postoperative Diagnosis: Same Procedure: Full InterStim implant using verify system Anesthesia: MAC with local Surgeon: Matthew Haro Limousine Driver(s): None Resident Surgeon: None Operation and Findings: 41-year-old female with history of urge incontinence who had InterStim stage I which worked well and now presents for stage II and a full implant. The patient was properly identified and placed in the prone position per OR protocol. MAC anesthesia was administered. Pillows were placed under the lower abdomen to flatten the sacrum and under the shins to allow the toes to dangle freely. The ground pad was placed on the bottom of the patient's foot and the proximal ends of the test stimulation cable were connected to the ground pad and the external neurostimulator. The patient was then prepped and draped in usual sterile fashion and preprocedure antibiotics were administered. She received MAC anesthesia as well as local anesthesia. C-arm was moved into the AP position to provide fluoroscopic guidance to the sacrum. The medial edges of the foramina were identified and marked. C-arm was then moved in the lateral position to identify the S3 foramen. Once the needle entry point was determined, local injection of 1% lidocaine with epinephrine was administered. A 5.0 foramen needle was placed into the superior , medial aspect of the S3 foramen appropriate needle depth was visualized utilizing fluoroscopy. Proper S3 needle location was also confirmed by direct observation of the lifting of the peritoneum or bellowing, and plantarflexion of the great toe utilizing the test stimulation cable, the external neurostimulator and verify controller. The foramen needle stylet was removed and a directional guide was placed through the needle using markers on the guide to ensure appropriate depth. The foramen needle was removed by sliding over the directional guide. A small incision was made peripherally to the directional guide through the skin. The lead introducer with dilator was placed over the directional guide and utilizing fluoroscopic guidance, the lead introducer was advanced until the radiopaque sheila was residential through the foramen. The dilator was removed along with the directional guide. Using fluoroscopy the time lead with a curved stylette was placed through the introducer into electrodes 2 and 3 straddle the anterior surface of the sacrum. All 4 electrodes were tested, observing vira and plantarflexion of the great to utilizing the test stimulation cable , the external neurostimulator and verify controller. After satisfactory lead positioning was confirmed, the introducer was retracted over the lead under continuous fluoroscopy, deploying the tines into presacral tissue. Retesting of all 4 electrodes confirming appropriate responses was completed. The internal neurostimulator pocket site was identified low the iliac crest lateral to the sacrum. Local was administered and incision was made into subcutaneous tissue. Blunt dissection was used to create a pocket with hemostasis achieved. Tunneling tool was sheath was placed from the lead exit site subcutaneously into the incised pocket site. The tunneling tool was removed and the lead was fed through the sheath, exiting the pocket site. Sheath was removed. The lead was cleaned and dried. The lead was inserted into the header of the InterStim neurostimulator into the blue tip was visualized at the distal window. A single set screw was tightened using a torque wrench until audible click was heard. InterStim he was placed into the pocket with the S2 identification side placed upwards and any excess lead was placed around the neurostimulator. The clinician statistical programmer analyst telemetry head, covered using a sterile sleeve, was placed over the implanted neurostimulator to ensure proper lead connection and that parameters within the normal range. Impedances were confirmed to be within normal limits, greater than 50 and less than 4000 ohms. The wound was irrigated with antibiotic solution and sterile water and closed with a 3-0 Vicryl suture and then followed by a 4-0 Monocryl suture to close the skin. Counts were correct. Adhesive strips and gauge were placed over the incision covered with transparent dressing. Estimated blood loss was 0 cc the patient was transferred to the recovery room in stable condition. Using clinical statistical programmer analyst, the INS was programmed. The patient was provided utilization instructions and patient statistical programmer analyst prior to discharge. CPT codes for this procedure include 71780, 48297, 7600-26, 47425 and 82175 Matthew Haro Marcos DO October 06, 2017 10:16
[2017-10-06 11:30] VITALS: BP 145/81; PULSE 93; RESP 20; TEMP 97.9; O2SAT 98
--- NOTE | 2017-10-06 12:46 | RADRPT ---
EXAM DATE: 10/06/2017 10:47 AM EDT AGE/SEX: 41 years / Female INDICATIONS: Interstim placement. CLINICAL DATA: This is the patient's initial encounter. Patient reports that signs and symptoms have been present for 1 day and indicates a pain score of Nonresponsive. MEDICAL/SURGICAL HISTORY: None. None. COMPARISON: No prior exams available for comparison. FINDINGS: 2 views of the sacrum were performed. There is a wire overlying the mid portion of the left sacrum. T here is good alignment of the SI joints. CONCLUSION: Wire overlying the midportion of the left sacrum. Electronically signed by: Timoteo Hassan MD 10/06/2017 12:44 PM EDT
== END | disposition home or self-care (01) ==
LOC: HSDC 05:59
PROVIDERS: ATTEND Urology
DX: N39.41 Urge incontinence (principal); N32.81 Overactive bladder; N39.9 Disorder of urinary system, unspecified; G35 Multiple sclerosis; Z79.82 Long term (current) use of aspirin; I25.2 Old myocardial infarction; F31.9 Bipolar disorder, unspecified
CPT/HCPCS: 00300; 64581; 64590; 72220; 76000; C1713; C1767; C1778; C1787; J0690; J2175; J2250; J2405; J3010; J7120; J8501

== ENCOUNTER 2017-10-21 14:37 | Emergency (ER) | payer MEDICAID ==
[~2017-10-21 14:37] MED LIST changes: -APREPITANT 40 MG CAP ONE; -CHLORHEXIDINE GLUCONATE 2 % 1 PACK (2 CLOTHS) TOPICAL PRN; -DO NOT ADM ANY ANTICOAGULANT DRUGS PRN; -FAMOTIDINE 20 MG/2 ML VIAL ONE; -HYDROmorphone HCL PF 2 MG/ML VIAL IV PUSH PRN; -KETAMINE HCL 50 MG/5 ML SYRINGE ONE; -LACTATED RINGER'S 1000 ML IV PRN; -LIDOCAINE 1%/EPINEPHrine 1:100,000 SOLN 30 ML VIAL ONE; -LIDOCAINE HCL 1% PF 5 ML SYRINGE OTHER ONE; -MEDR4PAK PO; -MEPERIDINE HCL 50 MG/ML VIAL ONE; -METOPROLOL TARTRATE 25 MG TAB PO PRN; -MIDAZOLAM HCL 2 MG/2 ML VIAL ONE; -ONDANSETRON HCL 4 MG/2 ML VIAL IV ONE; -ONDANSETRON HCL 4 MG/2 ML VIAL IV PUSH PRN; -ONDANSETRON HCL 4 MG/2 ML VIAL ONE; -ONDANSETRON ODT 4 MG TAB PO PRN; -POVIDONE IODINE 5% (ANTISEPSIS KIT) 4 APPLICATIONS EACH NARE PRN; -PROPOFOL 200 MG/20 ML AMP IV ONE; -SODIUM CHLORID 0.9% 500 ML IV PRN; -[UNRECOGNIZED DRUG - CODE] EACH NARE; -[UNRECOGNIZED DRUG - OTHER] PO; -ceFAZolin 1,000 MG/NS 100 ML IV SCH; -traMADol HCL 50 MG TAB PO PRN
[2017-10-21 14:40] VITALS: BP 163/82; PULSE 127; RESP 22; TEMP 98.6; O2SAT 99
[2017-10-21] MEDS ORDERED: MORPHINE SULFATE 4 MG/ML INJ IM ONE (15:00)
[2017-10-21] MEDS ORDERED: ONDANSETRON ODT 4 MG TAB PO ONE (15:00)
--- NOTE | 2017-10-21 15:39 | RADRPT ---
EXAM DATE: 10/21/2017 3:33 PM EDT AGE/SEX: 41 years / Female INDICATIONS: Right posterior and bilateral condyle knee pain after walking. CLINICAL DATA: This is the patient's initial encounter. Patient reports that signs and symptoms have been present for 1 day and indicates a pain score of 10/10. MEDICAL/SURGICAL HISTORY: None. None. COMPARISON: No prior exams available for comparison. FINDINGS: Bony structures are intact and in normal alignment. Joints are intact without dislocation or signifi cant arthropathy. Osseous density is normal. Soft tissues are unremarkable. No radiopaque foreign bodies seen. CONCLUSION: Negative examination Electronically signed by: Tahir Way MD 10/21/2017 3:37 PM EDT
[2017-10-21] MEDS ORDERED: IBUP1TAB7 PO (16:13)
[2017-10-21] MEDS ORDERED: NORC5TAB PO (16:13)
--- NOTE | 2017-10-21 16:13 | PD ---
HPI Chief Complaint: Musculoskeletal Complaint Time Seen by Provider: 14:54 Travel History International Travel<30 days: No Contact w/Intl Traveler<30days: No Traveled to known affect area: No History of Present Illness HPI 41-year-old female, with history of multiple sclerosis, presents to emergency department with complaint of right knee pain 1 week. She said a week ago she stepped down wrong on her stairs and it has been popping in and out of place occasionally for the last week. Today when she was walking from the car into the grocery store her knee gave out again. She has been using a walker for support. Denies fever, vomiting. Denies change in paresthesias from her MS. Denies loss of sensation to the affected extremity. Reports decreased range of motion at the knee secondary to pain. Pain is worse with full extension of the leg, ambulation, palpation. Pain is constant. Pain is to the lateral and medial aspects. Has not taken any medications to try to alleviate her symptoms. Has been using a knee brace, Stew bandage, and walker for support. Allergies to Percocet. Primary care provider is Dr. Sullivan. History of MS and asthma. Has no other medical complaints. No other modifying factors or associated signs and symptoms. PFSH Past Medical History Hx Anticoagulant Therapy: No Asthma: Yes Blood Disorders: No Bipolar Disorder: Yes Anxiety: No Depression: Yes Heart Rhythm Problems: No Cancer: Yes (BREAST CANCER) Cardiovascular Problems: No High Cholesterol: No Chest Pain: No Congestive Heart Failure: No COPD: Yes Diabetes: No Diminished Hearing: No Endocrine: No Gastrointestinal Disorders: Yes (ACID REFLUX) Genitourinary: No Headaches: Yes (MIGRAINES) Hepatitis: No Hiatal Hernia: No Hypertension: No Immune Disorder: No Implanted Vascular Access Dvce: No Musculoskeletal: No Neurologic: Yes (MS) Psychiatric: Yes (BIPOLAR) Reproductive: Yes (HX OF ABLATION) Respiratory: Yes (ASTHMA) Migraines: Yes Sleep Apnea: No Thyroid Disease: No ?: Not : 8 Para: 3 Miscarriage: 5 Past Surgical History Abdominal Surgery: Yes (GALLBLADDER) AICD: No Section: Yes (x3) Cholecystectomy: Yes Genitourinary Surgery: Yes (C SECTION X 3) Gynecologic Surgery: Yes (ABLATION) Joint Replacement: No Oral Surgery: Yes (TONSILECTOMY) Pacemaker: No Thoracic Surgery: Yes (LUMPECTOMY) Tonsillectomy: Yes Other Surgery: Yes ( X3, CHOLECYSTECTOMY, TONSILLECTOMY) Social History Alcohol Use: Yes (RARE) Tobacco Use: No Substance Use: No Allergies-Medications (Allergen,Severity, Reaction): Coded Allergies: acetaminophen (Verified Allergy, Intermediate, RASH, 10/21/17) oxycodone (Verified Allergy, Intermediate, RASH, 10/21/17) Reported Meds & Prescriptions Reported Meds & Active Scripts Active Ibuprofen 800 Mg Tab 800 Mg PO Q6HR PRN [place] (Hydrocodone-Acetaminophen) 5 Mg-325 Mg Tab 1 Tab PO Q4-6H PRN Flexeril (Cyclobenzaprine HCl) 5 Mg Tab 5 Mg PO TID DO NOT take with any pain medications. Meclizine (Meclizine HCl) 25 Mg Tab 50 Mg PO DAILY PRN 1-2 tabs as needed Omeprazole 20 Mg Tab 20 Mg PO DAILY Singulair (Montelukast Sodium) 10 Mg Tab 10 Mg PO HS Dulera 120 Act Inh (Mometasone-Formoterol 120 Act Inh) 200-5 Mcg/Act Inh 2 Puff INH BID Fluticasone Nasal [place] 50 Mcg/Act Naspr 50 Mcg EACH NARE BID 50 mcg/spray Ergocalciferol 50,000 Unit Cap 50,000 Units PO Q7D Naproxen 500 Mg Tab 500 Mg PO BID Do not take with any other NSAID Ibuprofen 800 Mg Tab 800 Mg PO Q8H PRN Do not take with any other NSAIDs - use a little as possibe to protect your kidney function. Albuterol Neb (Albuterol Sulfate) 2.5 Mg/3 Ml Neb 2.5 Mg NEB Q4HR NEB While awake Proair Hfa 8.5 GM Inh (Albuterol Sulfate) 90 Mcg/Act Aer 1 Puff INH Q4H PRN 108 mcg/actuation Valtrex (Valacyclovir HCl) 1 Gm Tab 1,000 Mg PO DAILY Nebulizer Kit/Tubing/Mout (N/A) 1 Kit Kit 1 Kit .ROUTE DIRECTED Azelastine Nasal [place] (Azelastine HCl) 0.1% [place] 1 [place] EACH NARE BID Reported Tramadol (Tramadol HCl) 50 Mg Tab 50 Mg PO Q4H PRN Protonix (Pantoprazole Sodium) 40 Mg Tab 40 Mg PO DAILY Apple Cider Vinegar (Cider Vinegar) 300 Mg Tablet 1 Tab PO DAILY Hydrocodon-Acetamin 7.5-325/15 (Hydrocodone/Acetaminophen) 7.5 Mg-325 Mg/15 Ml ( 15 Ml) Solution 1 Tab PO QID Sumatriptan Nasal [place] 20 Mg/Act [place] 1 [place] NASAL ONCE [place] in one nostril. If headache has not resolved within 2 hours or returns, the dose may be repeated once after 2 hours Lamotrigine ER (Lamotrigine) 200 Mg Joesph 200 Mg PO BID Gabapentin 600 Mg Tab 600 Mg PO TID Excedrin Extra Strength (Jnqpnls-Ifrporsruscfv-Eoesycrz) 1 Tab Tab 1 Tab PO Q6HR PRN Rizatriptan (Rizatriptan Benzoate) 10 Mg Tab 10 Mg PO DAILY Prazosin (Prazosin HCl) 1 Mg Cap 1 Mg PO HS Trazodone (Trazodone HCl) 100 Mg Tablet 200 Mg PO HS Promethazine HCl 50 Mg Tablet 25 Mg PO TID [place]ag[place] (Teriflunomide) 14 Mg Tab 14 Mg PO DAILY Review of Systems Except as stated in HPI: all other systems reviewed are Neg Physical Exam Narrative GENERAL: Well-nourished, well-developed black female patient, in no acute distress; afebrile, nontoxic-appearing SKIN: Warm and dry. HEAD: Atraumatic. Normocephalic. EYES: Pupils equal and round. No scleral icterus. No injection or drainage. ENT: Mucosa pink and moist. Airway patent. NECK: Trachea midline. CARDIOVASCULAR: Regular rate. RESPIRATORY: No accessory muscle use. GASTROINTESTINAL: Rounded. MUSCULOSKELETAL: Right nonedematous, nonerythematous, and without ecchymosis; unable to assess flexion of the knee secondary to pain and patient guarding; point tenderness to the lateral and medial aspect; unable to assess joint stability; no obvious deformity. Right lower extremity is supple and non-tense with 2+ pedal pulse and sensory intact and without erythema or edema. NEUROLOGICAL: Awake and alert. Oriented 3. No obvious cranial nerve deficits. Motor grossly within normal limits. Normal speech. PSYCHIATRIC: Appropriate mood and affect; insight and judgment normal. Data Data Last Documented VS Vital Signs Date Time Temp Pulse Resp B/P (MAP) Pulse Ox O2 Delivery O2 Flow Rate FiO2 10/21/17 16:23 88 18 164/69 (100) 99 Room Air 10/21/17 14:40 98.6 Orders Orders Morphine Inj (Morphine Inj) (10/21/17 15:00) Ondansetron Odt (Zofran Odt) (10/21/17 15:00) Knee, Complete (4vws) (10/21/17 15:00) Canvas Knee Splint (Cks) (10/21/17 ) Crutches (10/21/17 16:08) Acetamin-Hydrocod 325-5 Mg ([place] 5-325 (10/21/17 16:15) Ed Discharge Order (10/21/17 16:08) [facility] Medical Decision Making Medical Screen Exam Complete: Yes Emergency Medical Condition: Yes Medical Record Reviewed: Yes Differential Diagnosis Meniscal tear, ACL tear, knee strain, knee pain, arthritis, fracture, dislocation Narrative Course 41-year-old female, with history of MS, with right knee pain and buckling for the past week after stepping down a step wrong and it buckling again today while she was walking into a grocery store. Patient appears to be in excruciating pain. Morphine, Zofran ordered. Right knee x-ray ordered. I did discuss the patient with Dr. Ma, my attending physician, and he agrees with my plan of care. 1610: Right knee x-ray concluded: Knee X-Ray 10/21/17 1500 Signed Impressions: CONCLUSION: Negative examination Patient provided a copy of the x-ray report. Canvas knee splint, crutches provided for support. Lortab administered prior to discharge. Lortab, ibuprofen prescribed for home. Instructed patient to follow-up with orthopedic surgeon. Instructed patient to follow up with primary care provider. Patient verbalizes understanding and agreement with treatment plan. Patient is medically cleared and stable for discharge. Discussed reasons to return to the emergency department. Patient agrees with treatment plan. The patients vital signs are stable and the patient is stable for outpatient follow-up and treatment. Patient discharged home, stable and in no acute distress. Diagnosis Primary Impression: Right knee pain Qualified Codes: M25.561 - Pain in right knee Additional Impression: Right knee buckling Referrals: Orthopaedic Surgeon Primary Care Physician Patient Instructions: General Instructions, Knee Pain (ED) Additional Instructions: Tylenol or ibuprofen as needed and as directed to reduce pain and inflammation Rest, ice, compress, and elevate extremity to decrease pain and inflammation Knee brace for support Crutches for support Avoid aggravating activity; increase activity as tolerated Follow-up with primary care provider Follow-up with orthopedics Return to the emergency department immediately with worsening symptoms Med/Other Pt SpecificInfo: Prescription(s) given Scripts Ibuprofen (Ibuprofen) 800 Mg Tab 800 MG PO Q6HR Y for PAIN, #30 TAB 0 Refills Prov: Dory Vazquez 10/21/17 Hydrocodone-Acetaminophen ([place]) 5 Mg-325 Mg Tab 1 TAB PO Q4-6H Y for PAIN, #12 TAB 0 Refills Prov: Dory Vazquez 10/21/17 Disposition: 01 DISCHARGE HOME Condition: Stable Dory Vazquez Oct 21, 2017 16:13
[2017-10-21] MEDS ORDERED: ACETAMINOPHEN/HYDROcodone 325 MG/5 MG TAB PO ONE (16:15)
[2017-10-21 16:23] VITALS: BP 164/69; PULSE 88; RESP 18; O2SAT 99
== END 2017-10-21 16:48 | disposition home or self-care (01) ==
LOC: PHEFT 14:37
DX: M25.561 Pain in right knee (principal); G35 Multiple sclerosis; J44.9 Chronic obstructive pulmonary disease, unspecified; F31.9 Bipolar disorder, unspecified; K21.9 Gastro-esophageal reflux disease without esophagitis; Z85.3 Personal history of malignant neoplasm of breast
CPT/HCPCS: 73564; 96372; 99283; E0113; J2270; L1830

== ENCOUNTER 2018-04-17 04:46 | Inpatient (IN) ==
--- NOTE | 2018-04-17 06:17 | ED ---
HPI General Chief complaint: Fall Stated complaint: Medical Time Seen by Provider: 04/17/18 05:27 Source: patient Mode of arrival: EMS Limitations: other (Patient seen significantly distressed and in pain to concentrate on giving history.) History of Present Illness HPI narrative: 42-year-old female came to the emergency room brought by EMS after she fell because her right leg gave out. Patient has a history of MS and gets vertigo. She had 1 of the episodes tonight when she got up to go to the bathroom and then her right leg gave out. Patient was unable to get up from the floor. EMS brought her in. Currently she is complaining of her entire right leg pain. When I went to see her she continued to say that she had to urinate but she is incontinent and urine is just coming out. She was distressed a lot because of that and wanted immediate attention for the urine. There is no family member in the room to give any additional history at this point. Patient was tachycardic upon arrival. Related Data Home Medications Medication Instructions Recorded Confirmed amlodipine 5 mg PO HS 04/12/18 04/17/18 bupropion HCl 300 mg PO QAM 04/12/18 04/17/18 cholecalciferol (vitamin D3) 5,000 unit PO DAILY 04/12/18 04/17/18 [Vitamin D3] cyclobenzaprine 5 mg PO TID PRN 04/12/18 04/17/18 cyclosporine [Restasis] 1 drp OPHTHALMIC (EYE) Q12H 04/12/18 04/17/18 fluticasone [Allergy Relief 1 spray INTRANASAL DAILY 04/12/18 04/17/18 (fluticasone)] gabapentin 800 mg PO TID 04/12/18 04/17/18 lamotrigine 200 mg PO BID 04/12/18 04/17/18 meclizine 25 mg PO QID PRN 04/12/18 04/17/18 mometasone-formoterol [Dulera] 2 puff INHALATION Q12H 04/12/18 04/17/18 montelukast 10 mg PO QPM 04/12/18 04/17/18 pantoprazole 40 mg PO DAILY 04/12/18 04/17/18 prazosin 1 mg PO HS 04/12/18 04/17/18 ranitidine HCl 150 mg PO BID 04/12/18 04/17/18 sucralfate [Carafate] 1 g PO TID PRN 04/12/18 04/17/18 sumatriptan 20 mg INTRANASAL DAILY PRN 04/12/18 04/17/18 teriflunomide [Aubagio] 14 mg PO DAILY 04/12/18 04/17/18 tramadol 50 mg PO Q6H PRN 04/12/18 04/17/18 trazodone 150 mg PO HS PRN 04/12/18 04/17/18 Allergies Allergy/AdvReac Type Severity Reaction Status Date / Time oxycodone Allergy Intermediate RASH Verified 04/17/18 05:00 Review of Systems ROS Unobtainable ROS Unobtainable: other ROS: all other systems reviewed are negative [facility] Medical History Medical History Chronic pain (Acute) Depression (Acute) Dry eyes (Acute) GERD (gastroesophageal reflux disease) (Acute) Hypertension (Acute) Migraine (Acute) Multiple sclerosis (Acute) Seasonal allergies (Acute) Urinary dysfunction (Acute) Vertigo (Acute) Surgical History Surgical History H/O section (Acute) History of cholecystectomy (Acute) Hx of breast biopsy (Acute) Hx of tonsillectomy (Acute) Social History Social History Substance History: No History of Abuse Second Hand Smoke Exposure: No Smoking Status: Never smoker How Often Do You Have a Drink Containing Alcohol: Never Recent Travel in [facility] within the Last 8 Weeks: No Recent Out of Country Travel within the Last 8 Weeks: No Immunization History Tetanus Immunization: >5 Years Exam Narrative Exam Narrative: GENERAL: Awake, alert, obese, anxious, significant distress SKIN: Focused skin assessment warm/dry. HEAD: Atraumatic. Normocephalic. EYES: Pupils equal and round. No scleral icterus. No injection or drainage. ENT: No nasal bleeding or discharge. Mucous membranes pink and moist. NECK: Trachea midline. No JVD. CARDIOVASCULAR: Regular rate and rhythm. No murmur appreciated. RESPIRATORY: No accessory muscle use. Clear to auscultation. Breath sounds equal bilaterally. GASTROINTESTINAL: Abdomen soft, non-tender, nondistended. Hepatic and splenic margins not palpable. MUSCULOSKELETAL: No obvious deformities. No clubbing. No cyanosis. No edema. NEUROLOGICAL: Awake and alert. No obvious cranial nerve deficits. Motor grossly within normal limits. Normal speech. Right leg held stiff in extension. No range of motion at the hip, knee or ankle joint because of pain. PSYCHIATRIC: Appropriate mood and affect; insight and judgment normal. Course Initial Documented Vital Signs Temperature 98 F 04/17/18 04:57 Pulse Rate 115 H 04/17/18 04:57 Respiratory Rate 16 04/17/18 04:57 Blood Pressure 143/91 H 04/17/18 04:57 Pulse Oximetry 100 04/17/18 04:57 Last Documented Vital Signs Temperature 97.7 F 04/21/18 23:14 Pulse Rate 88 04/21/18 23:14 Respiratory Rate 16 04/21/18 23:14 Blood Pressure 140/94 H 04/21/18 23:14 Pulse Oximetry 97 04/21/18 23:14 Sign Out Sign Out Data: Patient Sign Out occurred on 04/17/18 at 07:17. Patient's care was discussed, and care was transferred from Chantal Mitchell to Brenda Carlos MD. Sign Out Comment: Follow-up on blood test result Last updated by Chantal Mitchell MD at 04/17/18 07:07 Post-Handoff Eval: Patient is a 42 year old female, with history of MS, who comes in complaining of right sided numbness and weakness. She fell onto her back today due to the weakness. XRs ordered show no acute findings. CT head shows no acute findings. Patient given pain medicine. I spoke with Dr. Roberto of neurology who suggests MR brain and spine as well as 250mg solumedrol q 6 hrs. MRs ordered, first dose solumedrol ordered. Patient to be admitted for further management. Medical Decision Making MDM Narrative Medical decision making narrative: 6:17 AM awaiting for blood test result and x- ray. Case will be signed over to the oncoming ER physician. Medical Screen Exam Complete: Yes Emergency Medical Condition: Yes Differential Diagnosis Differential Diagnosis: MS flare vs fracture vs dehydration vs electrolyte abnormalities Medical Records Medical records reviewed: Yes I reviewed the patient's medical records. Lab Data Lab results reviewed: Yes I reviewed the patient's lab results. Result diagrams: 04/18/18 07:55 04/18/18 07:55 Lab Results 04/17/18 04/17/18 04/17/18 Range/Units 05:45 05:45 06:35 WBC 7.2 (4.0-11.0) th/mm3 RBC 3.62 L (4.00-5.30) mil/mm3 Hgb 10.4 L (11.6-15.3) gm/dL Hct 31.4 L (35.0-46.0) % MCV 86.9 (80.0-100.0) fL MCH 28.7 (27.0-34.0) pg MCHC 33.0 (32.0-36.0) % RDW 17.0 (11.6-17.2) % Plt Count 214 (150-450) th/mm3 MPV 8.6 (7.0-11.0) fL Neut % (Auto) 51.8 (16.0-70.0) % Lymph % (Auto) 39.0 (9.0-44.0) % Randall % (Auto) 6.9 (0.0-8.0) % Eos % (Auto) 1.9 (0.0-4.0) % Baso % (Auto) 0.4 (0.0-2.0) % Neut # (Auto) 3.8 (1.8-7.7) th/mm3 Lymph # (Auto) 2.8 (1.0-4.8) th/mm3 Randall # (Auto) 0.5 (0.0-0.9) th/mm3 Eos # (Auto) 0.1 (0.0-0.4) th/mm3 Baso # (Auto) 0.0 (0.0-0.2) th/mm3 WBC Differential . Differential Comment Auto diff final Sodium 139 (136-145) meq/L Potassium 3.9 (3.5-5.1) meq/L Chloride 105 (98-107) meq/L Carbon Dioxide 28.9 (21.0-32.0) meq/L Anion Gap 5 (5-15) meq/L BUN 7 (7-18) mg/dL Creatinine 0.83 (0.50-1.00) mg/dL Estimated GFR Greater than 89 (>89) mL/min Random Glucose 86 (74-106) mg/dL Calcium 8.5 (8.5-10.1) mg/dL Total Bilirubin 0.2 (0.2-1.0) mg/dL AST 25 (15-37) U/L ALT 28 (10-53) U/L Alkaline Phosphatase 101 (45-117) U/L Total Protein 7.1 (6.4-8.2) g/dL Albumin 3.1 L (3.4-5.0) g/dL Urine Color Colorless (Yellw/Straw) Urine Clarity Clear (Clear) Urine pH 6.0 (5.0-8.5) Ur Specific [place] 1.002 (1.002-1.035) Urine Protein Negative (Neg-Trace) mg/dL Urine Glucose (UA) Negative (Negative) mg/dL Urine Ketones Negative (Negative) mg/dL Urine Occult Blood Negative (Negative) Urine Nitrate Negative (Negative) Urine Bilirubin Negative (Negative) Urine Urobilinogen Less than 2 (Less than 2) mg/dL Ur Leukocyte Esterase Negative (Negative) Urine RBC Less than 1 (0-3) /hpf Urine WBC Less than 1 (0-5) /hpf Micro UA Comment Cath-culture not ind Ur Microscopic Review Not Reportable Urine Culture Comments Cath-cult not ind 04/18/18 04/18/18 Range/Units 07:55 07:55 WBC 10.1 (4.0-11.0) th/mm3 RBC 3.84 L (4.00-5.30) mil/mm3 Hgb 10.9 L (11.6-15.3) gm/dL Hct 34.2 L (35.0-46.0) % MCV 89.1 (80.0-100.0) fL MCH 28.3 (27.0-34.0) pg MCHC 31.8 L (32.0-36.0) % RDW 16.9 (11.6-17.2) % Plt Count 225 (150-450) th/mm3 MPV 8.2 (7.0-11.0) fL Neut % (Auto) 84.8 H (16.0-70.0) % Lymph % (Auto) 12.8 (9.0-44.0) % Randall % (Auto) 2.3 (0.0-8.0) % Eos % (Auto) 0.0 (0.0-4.0) % Baso % (Auto) 0.1 (0.0-2.0) % Neut # (Auto) 8.5 H (1.8-7.7) th/mm3 Lymph # (Auto) 1.3 (1.0-4.8) th/mm3 Randall # (Auto) 0.2 (0.0-0.9) th/mm3 Eos # (Auto) 0.0 (0.0-0.4) th/mm3 Baso # (Auto) 0.0 (0.0-0.2) th/mm3 WBC Differential . Differential Comment Auto diff final Sodium 137 (136-145) meq/L Potassium 4.5 (3.5-5.1) meq/L Chloride 106 (98-107) meq/L Carbon Dioxide 25.7 (21.0-32.0) meq/L Anion Gap 5 (5-15) meq/L BUN 9 (7-18) mg/dL Creatinine 0.97 (0.50-1.00) mg/dL Estimated GFR 76 L (>89) mL/min Random Glucose 205 H D (74-106) mg/dL Calcium 8.6 (8.5-10.1) mg/dL Total Bilirubin 0.3 (0.2-1.0) mg/dL AST 17 (15-37) U/L ALT 26 (10-53) U/L Alkaline Phosphatase 105 (45-117) U/L Total Protein 7.4 (6.4-8.2) g/dL Albumin 3.2 L (3.4-5.0) g/dL Urine Color (Yellw/Straw) Urine Clarity (Clear) Urine pH (5.0-8.5) Ur Specific [place] (1.002-1.035) Urine Protein (Neg-Trace) mg/dL Urine Glucose (UA) (Negative) mg/dL Urine Ketones (Negative) mg/dL Urine Occult Blood (Negative) Urine Nitrate (Negative) Urine Bilirubin (Negative) Urine Urobilinogen (Less than 2) mg/dL Ur Leukocyte Esterase (Negative) Urine RBC (0-3) /hpf Urine WBC (0-5) /hpf Micro UA Comment Ur Microscopic Review Urine Culture Comments Imaging Data Radiologist's impression: Ankle X-Ray 04/17/18 05:35 CONCLUSION: Negative examination Femur X-Ray 04/17/18 05:35 CONCLUSION: Negative examination Knee X-Ray 04/17/18 05:35 CONCLUSION: Negative examination Pelvis X-Ray 04/17/18 05:35 CONCLUSION: Negative examination. Head CT 04/17/18 05:50 CONCLUSION: 1. Negative CT Head non contrast. . Discharge Plan Discharge Disposition Patient Disposition: ED Admit(ED Internal Use Only) Discharge Condition Condition: Stable Discharge Order Discharge Orders: ED Use Only Admit Order (Routine); Ordered 04/17/18 Ordered By: Brenda Carlos Discharge Details Diagnosis: MS (multiple sclerosis), Weakness Physicians Team ED Provider: Brenda Carlos Primary Care Provider: Park Major Attending Provider: Alejandro Posey Other Providers: Alejo Roberto ; Linda Roth ; [facility],Insurance Status ED Status: Left Department Discharge Information Discharge Date/Time: 04/17/18 11:48
[2018-04-17] MEDS ORDERED: Morphine Inj 4 MG/ML Vial IV.PUSH ONE (06:18)
--- NOTE | 2018-04-17 06:30 | CT ---
EXAM DATE: 04/17/2018 6:23 AM EST AGE/SEX: 42 years / Female INDICATIONS: Dizziness, altered mental status. CLINICAL DATA: This is the patient's initial encounter. Patient reports that signs and symptoms have been present for 1 day and indicates a pain score of 0/10. MEDICAL/SURGICAL HISTORY: Multiple sclerosis. Hypertension. Gastroesophageal reflux disease. Chol ecystectomy. Tonsillectomy. RADIATION DOSE: 56.35 CTDI (mGy) COMPARISON: No prior exams available for comparison. TECHNIQUE: CT of the head without contrast. Using automated exposure control and adjustment of the mA and/or kV according to patient size, radiation dose was kept as low as reasonably achievable to ob tain optimal diagnostic quality images. DICOM format image data is available electronically for revi ew and comparison. FINDINGS: Cerebrum: The ventricles are normal for age. No evidence of midline shift, mass lesion, hemorrhage or acute infarction. No extraaxial fluid collections are seen. Posterior Fossa: The cerebellum and brainstem are intact. The 4th ventricle is midline. The cerebe llopontine angle is unremarkable. Extracranial: The visualized portion of the orbits is intact. Skull: The calvaria is intact. No evidence of skull fracture. CONCLUSION: 1. Negative CT Head non contrast. . Electronically signed by: Tahir Way MD 04/17/2018 6:29 AM EST
--- NOTE | 2018-04-17 06:46 | XR ---
EXAM DATE: 04/17/2018 6:30 AM EST AGE/SEX: 42 years / Female INDICATIONS: Pain to right leg, mainly knee, post fall. CLINICAL DATA: This is the patient's initial encounter. Patient reports that signs and symptoms have been present for 1 day and indicates a pain score of 9/10. MEDICAL/SURGICAL HISTORY: Multiple sclerosis. Asthma. . Stimulator. COMPARISON: No prior exams available for comparison. FINDINGS: Bony structures are intact and in normal alignment. Joints are intact without dislocation or signifi cant arthropathy. Osseous density is normal. Soft tissues are unremarkable. No radiopaque foreign bodies seen. CONCLUSION: Negative examination Electronically signed by: Tahir Way MD 04/17/2018 6:45 AM EST
--- NOTE | 2018-04-17 06:47 | XR ---
EXAM DATE: 04/17/2018 6:30 AM EST AGE/SEX: 42 years / Female INDICATIONS: Pain to right leg, mainly knee, post fall. CLINICAL DATA: This is the patient's initial encounter. Patient reports that signs and symptoms have been present for 1 day and indicates a pain score of 9/10. MEDICAL/SURGICAL HISTORY: Asthma. Multiple sclerosis. . Stimulator. COMPARISON: [facility], PELVIS AP 1V, 04/17/2018. . FINDINGS: Bony structures are intact and in normal alignment. Osseous density is normal. Soft tissues are unre markable. No radiopaque foreign bodies seen. CONCLUSION: Negative examination Electronically signed by: Tahir Way MD 04/17/2018 6:45 AM EST
--- NOTE | 2018-04-17 06:47 | XR ---
EXAM DATE: 04/17/2018 6:31 AM EST AGE/SEX: 42 years / Female INDICATIONS: Pain to right leg, mainly knee, post fall. CLINICAL DATA: This is the patient's initial encounter. Patient reports that signs and symptoms have been present for 1 day and indicates a pain score of 9/10. MEDICAL/SURGICAL HISTORY: Asthma. Multiple sclerosis. . Stimulator. COMPARISON: [facility], FEMUR RIGHT 2V, 04/17/2018. . FINDINGS: Bony structures are intact and in normal alignment. Joints are intact without dislocation or signifi cant arthropathy. Osseous density is normal. Soft tissues are unremarkable. No radiopaque foreign bodies seen. CONCLUSION: Negative examination Electronically signed by: Tahir Way MD 04/17/2018 6:46 AM EST
--- NOTE | 2018-04-17 06:48 | XR ---
EXAM DATE: 04/17/2018 6:31 AM EST AGE/SEX: 42 years / Female INDICATIONS: Pain to right leg, mainly knee, post fall. CLINICAL DATA: This is the patient's initial encounter. Patient reports that signs and symptoms have been present for 1 day and indicates a pain score of 9/10. MEDICAL/SURGICAL HISTORY: Asthma. Multiple sclerosis. . Stimulator. COMPARISON: [facility], [place]. . FINDINGS: Examination of the pelvis demonstrates no evidence of fracture or dislocation. Bony mineralization i s normal. There is no widening of the sacroiliac joints. No foreign body is identified. Neurostimul ator lead overlies the left sacral ala. CONCLUSION: Negative examination. Electronically signed by: Tahir Way MD 04/17/2018 6:46 AM EST
[2018-04-17 07:02] LABS: Baso % (Auto) 0.4 % (0.0-2.0); Eos # (Auto) 0.1 th/mm3 (0.0-0.4); Eos % (Auto) 1.9 % (0.0-4.0); Hematocrit 31.4 % (35.0-46.0); Hemoglobin 10.4 gm/dL (11.6-15.3); Lymph # (Auto) 2.8 th/mm3 (1.0-4.8); Mean Corpuscular Hemoglobin 28.7 pg (27.0-34.0); Mean Corpuscular Volume 86.9 fL (80.0-100.0); Mean Platelet Volume 8.6 fL (7.0-11.0); Mono # (Auto) 0.5 th/mm3 (0.0-0.9); Mono % (Auto) 6.9 % (0.0-8.0); Neut # (Auto) 3.8 th/mm3 (1.8-7.7); Neut % (Auto) 51.8 % (16.0-70.0); Platelet Count 214 th/mm3 (150-450); Red Blood Count 3.62 mil/mm3 (4.00-5.30); White Blood Count 7.2 th/mm3 (4.0-11.0)
[2018-04-17 07:06] LABS: Bilirubin,Urine Negative (Negative); Clarity,Urine Clear (Clear); Color,Urine Colorless (Yellw/Straw); Glucose,Urine (UA) Negative (Negative); Leukocyte Esterase,Urine Negative (Negative); Nitrite,Urine Negative (Negative); Specific Gravity,Urine 1.002 (1.002-1.035)
[2018-04-17 07:17] LABS: Alanine Aminotransferase 28 U/L (10-53); Albumin 3.1 g/dL (3.4-5.0); Anion Gap 5 meq/L (5-15); Aspartate Aminotransferase 25 U/L (15-37); Blood Urea Nitrogen 7 mg/dL (7-18); Calcium 8.5 mg/dL (8.5-10.1); Carbon Dioxide 28.9 meq/L (21.0-32.0); Chloride 105 meq/L (98-107); Glomerular Filtration Rate Greater Than 89 mL/min (>89); Glucose,Random 86 mg/dL (74-106); Potassium 3.9 meq/L (3.5-5.1); Sodium 139 meq/L (136-145)
[2018-04-17 07:19] LABS: Alkaline Phosphatase 101 U/L (45-117); Total Protein 7.1 g/dL (6.4-8.2)
[2018-04-17] MEDS ORDERED: MethylPREDNISolone Sod Suc Inj 250 MG in Sodium Chlor 0.9% Inj 100 ML IV.SIG ONE (09:17)
[2018-04-17] MEDS ORDERED: Acetaminophen 325 MG Tablet PO PRN (10:11)
--- NOTE | 2018-04-17 12:30 | P.HPIM ---
History of Present Illness Primary Care Physician: Park Major MD Chief Complaint: Weakness and Falls from MS Exacerbation History of Present Illness: Mrs. Dean is a 42-year-old female. She came in secondary to right-sided weakness and recurrent falls. At baseline she has multiple sclerosis. At baseline she has urinary incontinence and moderate right hemiplegia. She will typically have good days and bad days in regards to her symptoms. At this point she is nearly flaccid in her right arm and leg and has found it impossible to ambulate. Vertigo and headaches are part of her symptoms today and she says this typically has onset after a deficit in the past but is common with an MS exacerbation for her. She has a bladder stimulator implanted in this prohibits her from being able to obtain MRI studies. Possibility of MRI of brain at [place] (will discuss with neurology prior to any transfer). Etiology for her symptoms is likely related to her multiple sclerosis. At baseline she is on Aubagio. 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 In the past she has never tried anything other than short course high-dose steroids. Once her present exacerbation is resolved, she may be a candidate for a slow steroid taper over 2 -4 weeks and if she finds benefit from this she may benefit from chronic steroid use. Review of Systems Constitutional: No fevers, no chills no night sweats, no fatigue, no weakness Eyes: No eye pain, no blurry vision, no loss of vision ENT: No sore throat, no ear pain, no rhinorrhea Cardiovascular: No chest pain, no tachycardia, no palpitations, no syncope Respiratory: No wheezing, no cough, no shortness of breath Gastrointestinal: No abdominal pain, no black tarry stools, no bright red blood per rectum, no vomiting, no diarrhea Musculoskeletal: No joint pain, no muscle cramps, no stiffness Integumentary: No rash, no ulcers, no drainage Neurologic: Right flaccid hemiplegia, right-sided loss of motor function, vertigo, double vision Psychiatric: No behavioral changes, no hallucinations, no suicidal ideations [facility] Medical History Medical History Chronic pain (Acute) Depression (Acute) Dry eyes (Acute) GERD (gastroesophageal reflux disease) (Acute) Hypertension (Acute) Migraine (Acute) Multiple sclerosis (Acute) Seasonal allergies (Acute) Urinary dysfunction (Acute) Vertigo (Acute) Surgical History Surgical History H/O section (Acute) History of cholecystectomy (Acute) Hx of breast biopsy (Acute) Hx of tonsillectomy (Acute) Family History Family History Other Osteoarthritis Social History Social History Substance History: No History of Abuse Second Hand Smoke Exposure: No Smoking Status: Never smoker How Often Do You Have a Drink Containing Alcohol: Never [facility] within the Last 8 Weeks: No Recent Out of Country Travel within the Last 8 Weeks: No Immunization History Tetanus Immunization: >5 Years Medications and Allergies Allergies Allergy/AdvReac Type Severity Reaction Status Date / Time oxycodone Allergy Intermediate RASH Verified 04/17/18 05:00 Home Medications Medication Instructions Recorded Confirmed Type amlodipine 5 mg PO HS 04/12/18 04/17/18 History bupropion HCl 300 mg PO QAM 04/12/18 04/17/18 History cholecalciferol (vitamin D3) 5,000 unit PO DAILY 04/12/18 04/17/18 History [Vitamin D3] cyclobenzaprine 5 mg PO TID PRN 04/12/18 04/17/18 History cyclosporine [Restasis] 1 drp OPHTHALMIC (EYE) Q12H 04/12/18 04/17/18 History fluticasone [Allergy Relief 1 spray INTRANASAL DAILY 04/12/18 04/17/18 History (fluticasone)] gabapentin 800 mg PO TID 04/12/18 04/17/18 History lamotrigine 200 mg PO BID 04/12/18 04/17/18 History meclizine 25 mg PO QID PRN 04/12/18 04/17/18 History mometasone-formoterol [Dulera] 2 puff INHALATION Q12H 04/12/18 04/17/18 History montelukast 10 mg PO QPM 04/12/18 04/17/18 History pantoprazole 40 mg PO DAILY 04/12/18 04/17/18 History prazosin 1 mg PO HS 04/12/18 04/17/18 History ranitidine HCl 150 mg PO BID 04/12/18 04/17/18 History sucralfate [Carafate] 1 g PO TID PRN 04/12/18 04/17/18 History sumatriptan 20 mg INTRANASAL DAILY PRN 04/12/18 04/17/18 History teriflunomide [Aubagio] 14 mg PO DAILY 04/12/18 04/17/18 History tramadol 50 mg PO Q6H PRN 04/12/18 04/17/18 History trazodone 150 mg PO HS PRN 04/12/18 04/17/18 History Active Medications: Active Medications Acetaminophen (Tylenol) 650 mg PO Q4H PRN PRN Reason: Temp > 100.4 Al Hydroxide/Mg Hydroxide (Milk Of Abram Liq) 30 ml PO Q12H PRN PRN Reason: Mild Constipation Methylprednisolone Sodium Succinate (Solumedrol Inj) 40 mg IV.PUSH Q6H RUT Ondansetron HCl (Zofran Inj) 4 mg IV.PUSH Q6H PRN PRN Reason: NAUSEA OR VOMITING Sodium Chloride (Ns Flush) 2 ml IV.FLUSH PRN PRN PRN Reason: FLUSH AFTER USING IV ACCESS Sodium Chloride (Ns Flush) 2 ml IV.FLUSH BID RUT Physical Exam Vital signs: Last Vital Signs Temp 98.0 F 04/17/18 07:00 Pulse 101 H 04/17/18 11:30 Resp 16 04/17/18 11:30 BP 129/78 04/17/18 11:30 Pulse Ox 99 04/17/18 11:30 Intake & Output 04/15/18 04/16/18 04/17/18 04/18/18 06:59 06:59 06:59 06:59 Intake Total 104 / 104 Balance 104 / 104 Weight 80 kg Narrative: GENERAL: NAD, A&Ox3 HEAD: Normocephalic. NECK: Supple, trachea midline. No lymphadenopathy. EYES: No scleral icterus. No injection or drainage. CARDIOVASCULAR: Regular rate and rhythm without murmurs, gallops, or rubs. RESPIRATORY: Breath sounds equal bilaterally. No accessory muscle use. GASTROINTESTINAL: Abdomen soft, non-tender, nondistended. MUSCULOSKELETAL: No cyanosis, or edema. SKIN: Warm and dry. NEURO: Right-sided hemiplegia, flaccid Results Labs CBC & Chem 7: 04/17/18 05:45 04/17/18 05:45 Imaging Impressions Ankle X-Ray 04/17/18 05:35 CONCLUSION: Negative examination Femur X-Ray 04/17/18 05:35 CONCLUSION: Negative examination Knee X-Ray 04/17/18 05:35 CONCLUSION: Negative examination Pelvis X-Ray 04/17/18 05:35 CONCLUSION: Negative examination. Head CT 04/17/18 05:50 CONCLUSION: 1. Negative CT Head non contrast. . Caprini VTE Risk Assessment Caprini VTE Risk Assessment: Moderate/High Risk (score >= 2) Caprini Risk Assessment Model: Point Value = 1 Point Value = 2 Point Value = 3 Point Value = 5 Age 41-60 Minor surgery BMI > 25 kg/m2 Swollen legs Varicose veins or History of unexplained or recurrent spontaneous Oral contraceptives or hormone replacement Sepsis (< 1 month) Serious lung disease, including pneumonia (< 1 month) Abnormal pulmonary function Acute myocardial infarction Congestive heart failure (< 1 month) History of inflammatory bowel disease Medical patient at bed rest Age 61-74 Arthroscopic surgery Major open surgery (> 45 min) Laparoscopic surgery (> 45 min) Malignancy Confined to bed (> 72 hours) Immobilizing plaster cast Central venous access Age >= 75 History of VTE Family history of VTE Factor V Leiden Prothrombin [id number] Lupus anticoagulant Anticardiolipin antibodies Elevated serum homocysteine Heparin-induced thrombocytopenia Other congenital or acquired thrombophilia Stroke (< 1 month) Elective arthroplasty Hip, pelvis, or leg fracture Acute spinal cord injury (< 1 month) Prophylaxis Regimen: Total Risk Factor Score Risk Level Prophylaxis Regimen 0-1 Low Early ambulation 2 Moderate Order ONE of the following: *Sequential Compression Device (SCD) *Heparin 5000 units SQ BID 3-4 Higher Order ONE of the following medications: *Heparin 5000 units SQ TID *Enoxaparin/Lovenox 40 mg SQ daily (WT < 150 kg, CrCl > 30 mL/min) *Enoxaparin/Lovenox 30 mg SQ daily (WT < 150 kg, CrCl > 10-29 mL/min) *Enoxaparin/Lovenox 30 mg SQ BID (WT < 150 kg, CrCl > 30 mL/min) AND/OR *Sequential Compression Device (SCD) 5 or more Highest Order ONE of the following medications: *Heparin 5000 units SQ TID (Preferred with Epidurals) *Enoxaparin/Lovenox 40 mg SQ daily (WT < 150 kg, CrCl > 30 mL/min) *Enoxaparin/Lovenox 30 mg SQ daily (WT < 150 kg, CrCl > 10-29 mL/min) *Enoxaparin/Lovenox 30 mg SQ BID (WT < 150 kg, CrCl > 30 mL/min) AND *Sequential Compression Device (SCD) Assessment and Plan Plan 42-year-old female admitted secondary to MS exacerbation with right hemiplegia MS exacerbation Vertigo Right hemiplegia Continue high-dose steroids every 6 hours Neurology consulted MRI studies on hold secondary to implanted bladder stimulator Possibility of MRI of head exists patient sent to [facility] for exam Physical therapy Follow for improvement Once improving, consider discharge on a 2-4-week steroid taper Hypertension Continue baseline treatment Follow blood pressures Adjust treatments as needed Chronic incontinence Dysfunctional bladder stimulator Revision of bladder stimulator in process as an outpatient Freeman catheter placed Follow clinically Chronic pain Chronic depression Dry eyes Gastroesophageal reflux disease Migraine headaches Seasonal allergies No change to baseline treatments Follow these conditions clinically DVT Prophylaxis SCDs
[2018-04-17] MEDS ORDERED: Sucralfate 1 GM Tablet PO PRN (12:45)
[2018-04-17] MEDS ORDERED: CYCLOSPORINE EACH EYE SCH (13:30)
[2018-04-17] MEDS ORDERED: MOMETASONE FORMOTEROL INH SCH (13:30)
[2018-04-17] MEDS: Gabapentin 400 MG Capsule PO SCH ×2 (14:19→17:24)
[2018-04-17] MEDS ORDERED: MethylPREDNISolone Sod Succinate Inj 40 MG/ML Vial IV.PUSH SCH (15:00)
--- NOTE | 2018-04-17 15:03 | ECG ---
Date Performed: 04/17/2018 Time Performed: 10:53:48 PTAGE: 42 years EKG: PROBABLE Sinus tachycardia ABNORMAL RHYTHM ECG No significant change from prior electrocard iogram. PREVIOUS TRACING : 04/23/2017 09.22 DOCTOR: Adam Bishop Interpretating Date/Time 04/17/2018 15:01:39
[2018-04-17] MEDS ORDERED: MethylPREDNISolone Sod Succinate Inj 125 MG/2 ML Vial IV.PUSH SCH (16:00)
[2018-04-17] MEDS: Montelukast 10 MG Tablet PO SCH ×2 (17:25→17:40)
[2018-04-17] MEDS ORDERED: MethylPREDNISolone Sod Succinate Inj 125 MG/2 ML Vial IV.SIG SCH (18:03)
[2018-04-17] MEDS ORDERED: METHYLPREDNISOLONE SOD SUC IV.SIG ONE (20:00)
[2018-04-17] MEDS ORDERED: SODIUM CHLOR 0.9% IV.SIG ONE (20:00)
--- NOTE | 2018-04-17 20:36 | MB ---
cc: Alejo Roberto MD, PhD DATE: 04/17/2018 REASON FOR CONSULTATION: Multiple sclerosis exacerbation. HISTORY OF PRESENT ILLNESS: Ms. Dean is a very nice 42-year-old female diagnosed with MS about a year ago. She states in retrospect, she was having symptoms since 2011 when she would get feelings of alternating hot and cold on one side of her body and then the other with weakness. She would have good days and bad days. Some days prohibiting work. Other days, she would be able to work. She had good days coming and going. Her symptoms got worse about a year ago. She underwent evaluation with an MRI of the brain and lumbar puncture. Her studies were consistent with multiple sclerosis, but the LP was normal. She was started on Aubagio; however, over the past year, has had a progressive decline with very few good days, but still waxing and waning. She now relates for the past several days, increasing weakness on the right side where she has difficulty moving the right arm and right leg. She normally can ambulate with a cane, but now has significant difficulty with this. PAST MEDICAL HISTORY: History of multiple sclerosis. She has a history of bladder InterStim in place due to urinary difficulty probably from MS. Depression, GERD, hypertension, vertigo. MEDICATIONS: She takes: 1. Aubagio once a day. 2. Wellbutrin. 3. Flexeril. 4. Pepcid. 5. Neurontin. 6. Subcutaneous heparin. 7. Lamictal. 8. Antivert. 9. Zofran. 10. Protonix. NEUROLOGICAL EXAMINATION: VITAL SIGNS: Blood pressure 117/69, pulse 110, temperature 98.4 degrees, respirations 18. HIGHER CORTICAL FUNCTION: Normal. CRANIAL NERVES: Intact. MOTOR: She is very weak with 0/5 strength for the right arm and right leg, although she is able to wiggle toes. She has 3/5 strength in the left lower extremity 4/5 strength in the left upper extremity. Reflexes are symmetric. IMAGING STUDIES: A CT of the head is unremarkable. MRI, she cannot have an MRI here because of the bladder InterStim in place. LABORATORY DATA: White count 7200, hemoglobin 10.4, hematocrit 31.4%, platelet count 214,000. Sodium 139, potassium 3.9, chloride 105, CO2 of 29, BUN 7, creatinine 0.83, GFR greater than 89, glucose 86, AST 25, ALT 28. IMPRESSION: Multiple sclerosis exacerbation. Her multiple sclerosis may have entered a secondary progressive stage. RECOMMENDATIONS: Solu-Medrol 250 mg IV q.6 hours for 3-5 days. In the long run, after discharge, we will consider alternative immunomodulators. Ocrevus may be such an option. Alejo Roberto MD, PhD EDWARD/albert , 06:02 PM , 06:09 PM
[2018-04-17] MEDS: Famotidine 20 MG Tablet PO SCH (20:45)
[2018-04-17] MEDS: lamoTRIgine 100 MG Tablet PO SCH (20:46)
[2018-04-17] MEDS: amLODIPine 5 MG Tablet PO SCH (20:46)
[2018-04-17] MEDS: Prazosin HCl 1 MG Capsule PO SCH (20:54)
[2018-04-17] MEDS: buPROPion 150 MG 12 HR Tablet PO SCH (21:04)
[2018-04-17] MEDS: Heparin - SQ 10,000 UNITS/ML Vial SQ SCH (21:06)
[2018-04-18] MEDS: MethylPREDNISolone Sod Suc Inj 250 MG in Sodium Chlor 0.9% Inj 100 ML IV.SIG SCH ×4 (03:21→21:20)
[2018-04-18] MEDS: SUMATRIPTAN SUCCINATE ONE NARE PRN (03:28)
[2018-04-18 08:35] LABS: Baso % (Auto) 0.1 % (0.0-2.0); Hematocrit 34.2 % (35.0-46.0); Hemoglobin 10.9 gm/dL (11.6-15.3); Lymph # (Auto) 1.3 th/mm3 (1.0-4.8); Lymph % (Auto) 12.8 % (9.0-44.0); Mean Corpuscular HGB Conc 31.8 % (32.0-36.0); Mean Corpuscular Hemoglobin 28.3 pg (27.0-34.0); Mean Corpuscular Volume 89.1 fL (80.0-100.0); Mean Platelet Volume 8.2 fL (7.0-11.0); Mono # (Auto) 0.2 th/mm3 (0.0-0.9); Mono % (Auto) 2.3 % (0.0-8.0); Neut # (Auto) 8.5 th/mm3 (1.8-7.7); Neut % (Auto) 84.8 % (16.0-70.0); Platelet Count 225 th/mm3 (150-450); Red Blood Count 3.84 mil/mm3 (4.00-5.30); Red Cell Distribution Width 16.9 % (11.6-17.2); White Blood Count 10.1 th/mm3 (4.0-11.0)
[2018-04-18] MEDS ORDERED: TERIFLUNOMIDE 14 MG PO SCH (09:00)
[2018-04-18 09:09] LABS: Alanine Aminotransferase 26 U/L (10-53); Albumin 3.2 g/dL (3.4-5.0); Alkaline Phosphatase 105 U/L (45-117); Anion Gap 5 meq/L (5-15); Aspartate Aminotransferase 17 U/L (15-37); Blood Urea Nitrogen 9 mg/dL (7-18); Calcium 8.6 mg/dL (8.5-10.1); Carbon Dioxide 25.7 meq/L (21.0-32.0); Chloride 106 meq/L (98-107); Glomerular Filtration Rate 76 mL/min (>89); Glucose,Random 205 mg/dL (74-106); Potassium 4.5 meq/L (3.5-5.1); Sodium 137 meq/L (136-145); Total Protein 7.4 g/dL (6.4-8.2)
[2018-04-18] MEDS: lamoTRIgine 100 MG Tablet PO SCH ×2 (09:50→21:23)
[2018-04-18] MEDS: Gabapentin 400 MG Capsule PO SCH ×3 (09:50→17:56)
[2018-04-18] MEDS: Famotidine 20 MG Tablet PO SCH ×2 (09:51→21:22)
[2018-04-18] MEDS: buPROPion 150 MG 12 HR Tablet PO SCH ×2 (09:51→21:22)
[2018-04-18] MEDS: Heparin - SQ 10,000 UNITS/ML Vial SQ SCH ×2 (09:51→21:21)
[2018-04-18] MEDS: Montelukast 10 MG Tablet PO SCH (17:56)
--- NOTE | 2018-04-18 18:12 | P.PN ---
Subjective Interval history: Patient seen sitting up in bed. She continues to have almost total right sided weakness Physical Exam Vital signs: Vital Signs 04/17/18 19:37 04/17/18 23:12 04/18/18 04:00 Temperature 98.4 F 98.1 F 98.0 F Pulse Rate 113 H 107 H 105 H Respiratory Rate 12 16 16 Blood Pressure 131/59 L 123/60 114/65 Pulse Oximetry 98 97 98 04/18/18 07:14 04/18/18 08:00 04/18/18 11:51 Temperature 98.5 F 98.3 F Pulse Rate 109 H 116 H Respiratory Rate 20 18 18 Blood Pressure 125/69 121/59 L Pulse Oximetry 99 96 04/18/18 16:08 Temperature 98.4 F Pulse Rate 117 H Respiratory Rate 20 Blood Pressure 108/55 L Pulse Oximetry 97 Intake & Output 04/17/18 04/18/18 04/18/18 18:59 06:59 18:59 Intake Total 104 / 104 206.72 / 206.72 208 / 208 Output Total 1300 / 1300 1200 / 1200 1150 / 1150 Balance -1196 / -1196 -993.28 / -993.28 -942 / -942 Intake: IV 104 / 104 206.72 / 206.72 208 / 208 SoluMEDROL Inj 250 MG In NS Inj 104 / 104 206.72 / 206.72 208 / 208 100 ML @ 104 mls/hr IV.SIG Q6H RUT Rx#:[id number] Output: Urine 1300 / 1300 1200 / 1200 Urine Amount (Catheter) 1150 / 1150 Indwelling Urethral Catheter 1150 / 1150 Narrative: GENERAL: NAD, A&Ox3 HEAD: Normocephalic. NECK: Supple, trachea midline. No lymphadenopathy. EYES: No scleral icterus. No injection or drainage. CARDIOVASCULAR: Regular rate and rhythm without murmurs, gallops, or rubs. RESPIRATORY: Breath sounds equal bilaterally. No accessory muscle use. GASTROINTESTINAL: Abdomen soft, non-tender, nondistended. MUSCULOSKELETAL: No cyanosis, or edema. SKIN: Warm and dry. NEURO: Right-sided hemiplegia, flaccid - Urinary Catheter Management Indwelling Urethral Catheter Cath placed during this visit: yes Reason for continuing: Other continuation reason Insertion date: 04/17/18 Insertion time: 06:58 Results - Labs CBC & Chem 7: 04/18/18 07:55 04/18/18 07:55 Laboratory Results - last 24 hr 04/18/18 04/18/18 07:55 07:55 WBC 10.1 RBC 3.84 L Hgb 10.9 L Hct 34.2 L MCV 89.1 MCH 28.3 MCHC 31.8 L RDW 16.9 Plt Count 225 MPV 8.2 Neut % (Auto) 84.8 H Lymph % (Auto) 12.8 [place] % (Auto) 2.3 Eos % (Auto) 0.0 Baso % (Auto) 0.1 Neut # (Auto) 8.5 H Lymph # (Auto) 1.3 [place] # (Auto) 0.2 Eos # (Auto) 0.0 Baso # (Auto) 0.0 WBC Differential . Differential Comment Auto diff final Sodium 137 Potassium 4.5 Chloride 106 Carbon Dioxide 25.7 Anion Gap 5 BUN 9 Creatinine 0.97 Estimated GFR 76 L Random Glucose 205 H D Calcium 8.6 Total Bilirubin 0.3 AST 17 ALT 26 Alkaline Phosphatase 105 Total Protein 7.4 Albumin 3.2 L Assessment and Plan - Plan 42-year-old female admitted secondary to MS exacerbation with right hemiplegia MS exacerbation versus progression Vertigo Right hemiplegia Continue high-dose steroids every 6 hours Neurology consulted MRI studies on hold secondary to implanted bladder stimulator Possibility of MRI of head exists patient sent to [facility] for exam Physical therapy and rehab consults Hypertension Continue baseline treatment Follow blood pressures Adjust treatments as needed Chronic incontinence Dysfunctional bladder stimulator Revision of bladder stimulator in process as an outpatient Freeman catheter placed Follow clinically Chronic pain Chronic depression Dry eyes Gastroesophageal reflux disease Migraine headaches Seasonal allergies No change to baseline treatments Follow these conditions clinically DVT Prophylaxis SCDs
--- NOTE | 2018-04-18 20:11 | P.PNNEU ---
Subjective Subjective Comments: pt having difficulty with memory. Still very weak on right . Noticing trouble with dexterity left hand Active Medications: Active Medications Acetaminophen (Tylenol) 650 mg PO Q4H PRN PRN Reason: Temp > 100.4 Al Hydroxide/Mg Hydroxide (Milk Of Magnjackie Liq) 30 ml PO Q12H PRN PRN Reason: Mild Constipation Amlodipine Besylate (Norvasc) 5 mg PO HS [facility] Last Admin: 04/17/18 20:46 Dose: 5 mg Bupropion HCl (Wellbutrin Sr) 150 mg PO BID [facility] Last Admin: 04/18/18 09:51 Dose: 150 mg Cyclobenzaprine HCl (Flexeril) 5 mg PO TID PRN PRN Reason: SPASM Last Admin: 04/18/18 15:11 Dose: 5 mg Famotidine (Pepcid) 20 mg PO BID [facility] Last Admin: 04/18/18 09:51 Dose: 20 mg Fluticasone Propionate (Flonase Nasal [place]) 1 spray EACH NARE DAILY [facility] Last Admin: 04/18/18 09:50 Dose: 1 spray Gabapentin (Neurontin) 800 mg PO TID [facility] Last Admin: 04/18/18 17:56 Dose: 800 mg Heparin Sodium (Porcine) (Heparin Inj) 5,000 units SQ Q12HR [facility] Last Admin: 04/18/18 09:51 Dose: 5,000 units Methylprednisolone Sodium Succinate 250 mg/ Sodium Chloride 104 mls @ 104 mls/ hr IV.SIG Q6H [facility] Last Infusion: 04/18/18 16:10 Dose: Infused Lamotrigine (Lamictal) 200 mg PO BID [facility] Last Admin: 04/18/18 09:50 Dose: 200 mg Meclizine HCl (Antivert) 25 mg PO QID PRN PRN Reason: VERTIGO Last Admin: 04/18/18 17:58 Dose: 25 mg Miscellaneous (Pill Splitter) 1 each OTHER [facility] Montelukast Sodium (Singulair) 10 mg PO QPM [facility] Last Admin: 04/18/18 17:56 Dose: 10 mg Ondansetron HCl (Zofran Inj) 4 mg IV.PUSH Q6H PRN PRN Reason: NAUSEA OR VOMITING Pantoprazole Sodium (Protonix) 40 mg PO DAILY [facility] Last Admin: 04/18/18 09:51 Dose: 40 mg Pt Own Med ( Cyclosporine [ Restasis] 1 Drp) 0 each EACH EYE Q12H [facility] Pt Own Med:( Mometasone- Formoterol [Dulera] 2 Puff) 0 each INH Q12H [facility] Pt Own Med : ( Teriflunomide [ Aubagio] 14 Mg) 0 each PO DAILY [facility] Prazosin HCl (Minipress) 1 mg PO HS [facility] Last Admin: 04/17/18 20:54 Dose: 1 mg Sodium Chloride (Ns Flush) 2 ml IV.FLUSH PRN PRN PRN Reason: FLUSH AFTER USING IV ACCESS Sodium Chloride (Ns Flush) 2 ml IV.FLUSH BID [facility] Last Admin: 04/18/18 09:52 Dose: 2 ml Sucralfate (Carafate) 1 gm PO TID PRN PRN Reason: gerd Sumatriptan Succinate (Imitrex 20 Mg Nasal [place]) 1 spray ONE NARE DAILY PRN PRN Reason: migraines Last Admin: 04/18/18 03:28 Dose: 1 spray Tramadol HCl (Ultram) 50 mg PO Q6H PRN PRN Reason: PAIN 1-10 Last Admin: 04/18/18 15:12 Dose: 50 mg Trazodone HCl (Desyrel) 150 mg PO HS PRN PRN Reason: SLEEP Vitamin D (Vitamin D3) 5,000 unit PO DAILY [facility] Last Admin: 04/18/18 09:51 Dose: 5,000 unit Allergies/Adverse Reactions: Allergies Allergy/AdvReac Type Severity Reaction Status Date / Time oxycodone Allergy Intermediate RASH Verified 04/17/18 05:00 Physical Exam Vital signs: Vital Signs 04/17/18 23:12 04/18/18 04:00 04/18/18 07:14 Temperature 98.1 F 98.0 F 98.5 F Pulse Rate 107 H 105 H 109 H Respiratory Rate 16 16 20 Blood Pressure 123/60 114/65 125/69 Pulse Oximetry 97 98 99 04/18/18 08:00 04/18/18 11:51 04/18/18 16:08 Temperature 98.3 F 98.4 F Pulse Rate 116 H 117 H Respiratory Rate 18 18 20 Blood Pressure 121/59 L 108/55 L Pulse Oximetry 96 97 04/18/18 19:35 Temperature 97.7 F Pulse Rate 114 H Respiratory Rate 16 Blood Pressure 133/74 Pulse Oximetry 99 Intake & Output 04/18/18 04/18/18 04/19/18 06:59 18:59 06:59 Intake Total 206.72 / 206.72 1208 / 1208 Output Total 1200 / 1200 3500 / 3500 Balance -993.28 / -993.28 -2292 / -2292 Intake: IV 206.72 / 206.72 208 / 208 SoluMEDROL Inj 250 MG In NS Inj 206.72 / 206.72 208 / 208 100 ML @ 104 mls/hr IV.SIG Q6H RUT Rx#:[id number] Oral 1000 / 1000 Output: Urine 1200 / 1200 1200 / 1200 Urine Amount (Catheter) 2300 / 2300 Indwelling Urethral Catheter 2300 / 2300 - Routine Neurological Exam alert, speech fluent CN intact MOTOR 1-2 /5 RUE and RLE. 4/5 lUe and lle - Urinary Catheter Management Indwelling Urethral Catheter Cath placed during this visit: yes Reason for continuing: Other continuation reason Insertion date: 04/17/18 Insertion time: 06:58 Objective Laboratory Results - last 24 hr 04/18/18 04/18/18 07:55 07:55 WBC 10.1 RBC 3.84 L Hgb 10.9 L Hct 34.2 L MCV 89.1 MCH 28.3 MCHC 31.8 L RDW 16.9 Plt Count 225 MPV 8.2 Neut % (Auto) 84.8 H Lymph % (Auto) 12.8 [place] % (Auto) 2.3 Eos % (Auto) 0.0 Baso % (Auto) 0.1 Neut # (Auto) 8.5 H Lymph # (Auto) 1.3 [place] # (Auto) 0.2 Eos # (Auto) 0.0 Baso # (Auto) 0.0 WBC Differential . Differential Comment Auto diff final Sodium 137 Potassium 4.5 Chloride 106 Carbon Dioxide 25.7 Anion Gap 5 BUN 9 Creatinine 0.97 Estimated GFR 76 L Random Glucose 205 H D Calcium 8.6 Total Bilirubin 0.3 AST 17 ALT 26 Alkaline Phosphatase 105 Total Protein 7.4 Albumin 3.2 L Review/Management - Review/Management Plan: continue iv solumedrol 3-5 days evaluate for in patient rehab at [facility]
[2018-04-18] MEDS: Prazosin HCl 1 MG Capsule PO SCH (21:22)
[2018-04-18] MEDS: amLODIPine 5 MG Tablet PO SCH (21:22)
[2018-04-19] MEDS: MethylPREDNISolone Sod Suc Inj 250 MG in Sodium Chlor 0.9% Inj 100 ML IV.SIG SCH ×4 (03:46→21:04)
[2018-04-19] MEDS: SUMATRIPTAN SUCCINATE ONE NARE PRN (05:32)
[2018-04-19] MEDS: Heparin - SQ 10,000 UNITS/ML Vial SQ SCH ×2 (08:58→21:06)
[2018-04-19] MEDS: buPROPion 150 MG 12 HR Tablet PO SCH ×2 (08:59→21:07)
[2018-04-19] MEDS: Famotidine 20 MG Tablet PO SCH ×2 (08:59→21:18)
[2018-04-19] MEDS: lamoTRIgine 100 MG Tablet PO SCH ×2 (08:59→21:07)
[2018-04-19] MEDS: Gabapentin 400 MG Capsule PO SCH ×3 (08:59→18:30)
[2018-04-19] MEDS ORDERED: Naloxone Inj 0.4 MG/ML Vial IV.PUSH PRN (13:06)
[2018-04-19] MEDS ORDERED: LORazepam 0.5 MG Tablet PO ONE (13:10)
--- NOTE | 2018-04-19 16:45 | P.PNIM ---
Subjective Interval history: Patient is seen lying in bed. She is very tearful and upset. Says that she is having a lot of intermittent pain and feelings of burning throughout her body today. She is also very concerned because she is experiencing some memory loss. This is making her anxious and upset. Physical Exam Vital signs: Last Vital Signs Temp 98.4 F 04/19/18 07:10 Pulse 100 H 04/19/18 07:10 Resp 20 04/19/18 07:10 BP 124/73 04/19/18 07:10 Pulse Ox 99 04/19/18 07:10 Intake & Output 04/17/18 04/18/18 04/19/18 04/20/18 06:59 06:59 06:59 06:59 Intake Total 310.72 / 310.72 1416 / 1416 208 / 208 Output Total 2500 / 2500 4500 / 4500 Balance -2189.28 / -2189.28 -3084 / -3084 208 / 208 Weight 80 kg Narrative: GENERAL: NAD, A&Ox3 HEAD: Normocephalic. NECK: Supple, trachea midline. No lymphadenopathy. EYES: No scleral icterus. No injection or drainage. CARDIOVASCULAR: Regular rate and rhythm without murmurs, gallops, or rubs. RESPIRATORY: Breath sounds equal bilaterally. No accessory muscle use. GASTROINTESTINAL: Abdomen soft, non-tender, nondistended. MUSCULOSKELETAL: No cyanosis, or edema. SKIN: Warm and dry. NEURO: Right-sided hemiplegia, right leg remains flaccid; some limited movement of right arm now noted Urinary Catheter Management Indwelling Urethral Catheter: Cath placed during this visit: yes Urethral indwelling: Yes Reason for continuing: Chronic Urinary Retention Insertion date: 04/17/18 Insertion time: 06:58 Results Labs CBC & Chem 7: 04/18/18 07:55 04/18/18 07:55 Assessment and Plan Plan 42-year-old female admitted secondary to MS exacerbation with right hemiplegia MS exacerbation versus progression Vertigo Right hemiplegia Neurology consulted; continue steroids. MRI studies on hold secondary to implanted bladder stimulator Possibility of MRI of head exists patient sent to [place] for exam Physical therapy and rehab consults Hypertension Continue baseline treatment Follow blood pressures Adjust treatments as needed Chronic incontinence Dysfunctional bladder stimulator Revision of bladder stimulator in process as an outpatient Freeman catheter placed Follow clinically Chronic pain with acute exacerbation Increase tramadol dose Intermittent anxiety Ativan as needed Chronic depression Dry eyes Gastroesophageal reflux disease Migraine headaches Seasonal allergies All chronic-no change to baseline treatments Follow these conditions clinically DVT Prophylaxis SCDs Progress Note: Quality VTE Deep Vein Thrombosis/Pulmonary Embolism Present on Admission: No
--- NOTE | 2018-04-19 17:00 | P.CONREH ---
History of Present Illness Service: Physical medicine and rehabilitation Consult date: 04/19/18 Primary Care Provider: Park Major MD Chief Complaint: Weakness and Falls from MS Exacerbation History of Present Illness: Mele Dean is a 42-year-old [id number] female with past medical history significant for multiple sclerosis diagnosed approximately 1 year ago who symptoms initially began in 2011 who was admitted to [facility] 04/17/18 with right-sided weakness and recurrent falls. Head CT was negative for acute abnormality. She was started on IV Solu-Medrol per neurology recommendations. She reports that her right-sided weakness has slightly improved. She is reporting headache and dizziness as well as intermittent vertigo. She is concerned that her cognition appears to be more impaired than baseline. She has bladder InterStim in place. Prior to admission she was on Aubagio for treatment of her multiple sclerosis. Review of Systems Constitutional: Reports fatigue, Reports lack of energy Eyes: Reports change in vision, Denies double vision Ears, Nose, Mouth, and Throat: Reports dizziness, Reports headache(s), Denies abnormal hearing, Denies difficulty swallowing Cardiovascular: Denies chest pain Respiratory: Denies shortness of breath Gastrointestinal: Reports constipation, Denies abdominal pain, Denies nausea Genitourinary: Reports other (Bladder InterStim in place) Musculoskeletal: Reports abnormal walking, Reports back pain, Reports body aches Skin/Breast: Denies skin ulcer Neurologic: Reports localized weakness, Denies abnormal hearing Psychiatric: Reports confusion Hematologic/Lymphatic: Denies easy bruising PMFSH - History History Provided By: Patient, Core Drier / EMT - Medical History Medical History: Medical History (Last Reviewed 04/21/18 @ 09:11 by Nuris Alicia) Chronic pain Depression Dry eyes GERD (gastroesophageal reflux disease) Hypertension Migraine Multiple sclerosis Seasonal allergies Urinary dysfunction Vertigo - Surgical History Surgical History: Surgical History (Last Reviewed 04/21/18 @ 09:11 by Nuris Alicia) H/O section History of cholecystectomy Hx of breast biopsy Hx of tonsillectomy - Family History Family History: Family History (Last Reviewed 04/19/18 @ 09:36 by Chacha Will) Other Osteoarthritis - Tobacco History Second Hand Smoke Exposure: No Smoking Status: Never smoker - Alcohol History How Often Do You Have a Drink Containing Alcohol: Never - Substance Use History Substance History: No History of Abuse - Travel History Recent Travel in the [place] Within the Last 8 Weeks: No Recent Travel Out of the Country Within the Last 8 Weeks: No - Immunization History Tetanus Immunization: >5 Years Medications and Allergies Active Medications: Active Medications Acetaminophen (Tylenol) 650 mg PO Q4H PRN PRN Reason: Temp > 100.4 Al Hydroxide/Mg Hydroxide (Milk Of [place]) 30 ml PO Q12H PRN PRN Reason: Mild Constipation Amlodipine Besylate (Norvasc) 5 mg PO HS [facility] Last Admin: 04/18/18 21:22 Dose: 5 mg Bupropion HCl (Wellbutrin Sr) 150 mg PO BID [facility] Last Admin: 04/19/18 08:59 Dose: 150 mg Cyclobenzaprine HCl (Flexeril) 5 mg PO TID PRN PRN Reason: SPASM Last Admin: 04/19/18 08:08 Dose: 5 mg Famotidine (Pepcid) 20 mg PO BID [facility] Last Admin: 04/19/18 08:59 Dose: 20 mg Fluticasone Propionate (Flonase Nasal [place]) 1 spray EACH NARE DAILY [facility] Last Admin: 04/19/18 08:59 Dose: 1 spray Gabapentin (Neurontin) 800 mg PO TID [facility] Last Admin: 04/19/18 12:13 Dose: 800 mg Heparin Sodium (Porcine) (Heparin Inj) 5,000 units SQ Q12HR [facility] Last Admin: 04/19/18 08:58 Dose: 5,000 units Methylprednisolone Sodium Succinate 250 mg/ Sodium Chloride 104 mls @ 104 mls/ hr IV.SIG Q6H [facility] Last Infusion: 04/19/18 15:20 Dose: Infused Lamotrigine (Lamictal) 200 mg PO BID [facility] Last Admin: 04/19/18 08:59 Dose: 200 mg Meclizine HCl (Antivert) 25 mg PO QID PRN PRN Reason: VERTIGO Last Admin: 04/18/18 17:58 Dose: 25 mg Miscellaneous (Pill Splitter) 1 each OTHER UNSCH [facility] Montelukast Sodium (Singulair) 10 mg PO QPM [facility] Last Admin: 04/18/18 17:56 Dose: 10 mg Naloxone HCl (Narcan Inj) 0.4 mg IV.PUSH UNSCH PRN PRN Reason: SEE LABEL COMMENTS Ondansetron HCl (Zofran Inj) 4 mg IV.PUSH Q6H PRN PRN Reason: NAUSEA OR VOMITING Pantoprazole Sodium (Protonix) 40 mg PO DAILY [facility] Last Admin: 04/19/18 08:59 Dose: 40 mg Pt Own Med ( Cyclosporine [ Restasis] 1 Drp) 0 each EACH EYE Q12H [facility] Pt Own Med:( Mometasone- Formoterol [Dulera] 2 Puff) 0 each INH Q12H [facility] Pt Own Med : ( Teriflunomide [ Aubagio] 14 Mg) 0 each PO DAILY [facility] Prazosin HCl (Minipress) 1 mg PO HS [facility] Last Admin: 04/18/18 21:22 Dose: 1 mg Sodium Chloride (Ns Flush) 2 ml IV.FLUSH PRN PRN PRN Reason: FLUSH AFTER USING IV ACCESS Sodium Chloride (Ns Flush) 2 ml IV.FLUSH BID [facility] Last Admin: 04/19/18 09:00 Dose: 2 ml Sucralfate (Carafate) 1 gm PO TID PRN PRN Reason: gerd Sumatriptan Succinate (Imitrex 20 Mg Nasal [place]) 1 spray ONE NARE DAILY PRN PRN Reason: migraines Last Admin: 04/19/18 05:32 Dose: 1 spray Tramadol HCl (Ultram) 50 mg PO Q6H PRN PRN Reason: PAIN 1-5 Last Admin: 04/19/18 08:08 Dose: 50 mg Tramadol HCl (Ultram) 100 mg PO Q4H PRN PRN Reason: PAIN SCALE 6 TO 10 Last Admin: 04/19/18 14:20 Dose: 100 mg Trazodone HCl (Desyrel) 150 mg PO HS PRN PRN Reason: SLEEP Vitamin D (Vitamin D3) 5,000 unit PO DAILY [facility] Last Admin: 04/19/18 08:59 Dose: 5,000 unit Allergies Allergy/AdvReac Type Severity Reaction Status Date / Time oxycodone Allergy Intermediate RASH Verified 04/17/18 05:00 Home Medications Medication Instructions Recorded Confirmed Type amlodipine 5 mg PO HS 04/12/18 04/17/18 History bupropion HCl 300 mg PO QAM 04/12/18 04/17/18 History cholecalciferol (vitamin D3) 5,000 unit PO DAILY 04/12/18 04/17/18 History [Vitamin D3] cyclobenzaprine 5 mg PO TID PRN 04/12/18 04/17/18 History cyclosporine [Restasis] 1 drp OPHTHALMIC (EYE) Q12H 04/12/18 04/17/18 History fluticasone [Allergy Relief 1 spray INTRANASAL DAILY 04/12/18 04/17/18 History (fluticasone)] gabapentin 800 mg PO TID 04/12/18 04/17/18 History lamotrigine 200 mg PO BID 04/12/18 04/17/18 History meclizine 25 mg PO QID PRN 04/12/18 04/17/18 History mometasone-formoterol [Dulera] 2 puff INHALATION Q12H 04/12/18 04/17/18 History montelukast 10 mg PO QPM 04/12/18 04/17/18 History pantoprazole 40 mg PO DAILY 04/12/18 04/17/18 History prazosin 1 mg PO HS 04/12/18 04/17/18 History ranitidine HCl 150 mg PO BID 04/12/18 04/17/18 History sucralfate [Carafate] 1 g PO TID PRN 04/12/18 04/17/18 History sumatriptan 20 mg INTRANASAL DAILY PRN 04/12/18 04/17/18 History teriflunomide [Aubagio] 14 mg PO DAILY 04/12/18 04/17/18 History tramadol 50 mg PO Q6H PRN 04/12/18 04/17/18 History trazodone 150 mg PO HS PRN 04/12/18 04/17/18 History Exam - Physical Examination Vital Signs / I&O: Vital Signs 04/18/18 19:35 04/18/18 23:18 04/19/18 03:48 Temperature 97.7 F 98.7 F 98.3 F Pulse Rate 114 H 108 H 101 H Respiratory Rate 16 16 12 Blood Pressure 133/74 128/90 128/57 L Pulse Oximetry 99 100 100 04/19/18 07:10 Temperature 98.4 F Pulse Rate 100 H Respiratory Rate 20 Blood Pressure 124/73 Pulse Oximetry 99 Intake & Output 04/18/18 04/19/18 04/19/18 18:59 06:59 18:59 Intake Total 1208 / 1208 208 / 208 208 / 208 Output Total 3500 / 3500 1000 / 1000 Balance -2292 / -2292 -792 / -792 Intake: IV SoluMEDROL Inj 250 MG In NS Inj 100 ML @ 104 mls/hr IV.SIG Q6H RUT Rx#:[id number] Oral 1000 / 1000 Output: Urine 1200 / 1200 1000 / 1000 Urine Amount (Catheter) 2300 / 2300 Indwelling Urethral Catheter 2300 / 2300 Intake & Output 04/17/18 04/18/18 04/19/18 04/20/18 06:59 06:59 06:59 06:59 Intake Total 310.72 / 310.72 1416 / 1416 Output Total 2500 / 2500 4500 / 4500 Balance -2189.28 / -2189.28 -3084 / -3084 Weight 80 kg General: No acute distress Respiratory: Lungs CTA, Non-labored respirations, BS equal Gastrointestinal: Positive bowel sounds, Non-tender Cardiovascular: Normal rate, Regular rhythm Psychiatric: Cooperative, Other (Patient tearful) - Neurologic Orientation: oriented to: Self, Place, Situation, disoriented to: Time Neurologic: Pupils (PERRLA) Motor: Right Upper Extremity (3/5), Left Upper Extremity (4/5), Right Lower Extremity (3/5), Left Lower Extremity (4/5) Sensory: Impaired but present in right UE and LE DTRs: Normal Clonus: Negative Results - Labs CBC & Chem 7: 04/18/18 07:55 04/18/18 07:55 Assessment and Plan (1) MS (multiple sclerosis) Status: Acute Code(s): G35 - Multiple sclerosis (2) Weakness Status: Acute Code(s): R53.1 - Weakness (3) Impaired mobility and activities of daily living Status: Acute Code(s): Z74.09 - Other reduced mobility - Plan Assessment: 1. Multiple sclerosis with right hemiparesis 2. Impaired mobility and ADL's due to above 3. Impaired cognition 4. Depression 5. HTN Recommendations: 1. Patient is now max assist of 2 for bed mobility with physical therapy. Prior to admission patient was using a wheelchair for mobility and able to ambulate short distances of 10-15 feet with a walker but was having multiple falls. Continue to mobilize with emphasis on transfers 2. Occupational Therapy for ADL training 3. Receiving subcutaneous heparin for DVT prophylaxis 4. Anticipate the patient will need inpatient rehabilitation at discharge. Will follow in conjunction with case management to facilitate as feasible 5. Will follow while hospitalized and at discharge as appropriate Thank you for this consult
[2018-04-19] MEDS: Montelukast 10 MG Tablet PO SCH (18:31)
[2018-04-19] MEDS: amLODIPine 5 MG Tablet PO SCH (21:07)
[2018-04-19] MEDS: Prazosin HCl 1 MG Capsule PO SCH (21:07)
[2018-04-20] MEDS: MethylPREDNISolone Sod Suc Inj 250 MG in Sodium Chlor 0.9% Inj 100 ML IV.SIG SCH ×4 (02:02→21:28)
[2018-04-20] MEDS: traZODone 50 MG Tablet PO PRN ×2 (02:07→21:10)
[2018-04-20] MEDS: Famotidine 20 MG Tablet PO SCH ×2 (08:50→21:11)
[2018-04-20] MEDS: Gabapentin 400 MG Capsule PO SCH ×3 (08:50→18:37)
[2018-04-20] MEDS: Heparin - SQ 10,000 UNITS/ML Vial SQ SCH ×2 (08:51→21:11)
[2018-04-20] MEDS: lamoTRIgine 100 MG Tablet PO SCH ×2 (08:51→21:12)
[2018-04-20] MEDS: buPROPion 150 MG 12 HR Tablet PO SCH ×2 (08:51→21:11)
[2018-04-20] MEDS: SUMATRIPTAN SUCCINATE ONE NARE PRN (09:12)
--- NOTE | 2018-04-20 16:19 | P.PNIM ---
Subjective Interval history: Patient is seen in room. She is very anxious and agitated. States that she keeps forgetting things and that this scares her. Pain has been better controlled with increase in medications. She is able to get up out of bed on her own now and has much better use of her right arm but still has weakness on that side. Physical Exam Vital signs: Last Vital Signs Temp 98.2 F 04/20/18 11:47 Pulse 99 H 04/20/18 11:47 Resp 16 04/20/18 11:47 BP 137/79 04/20/18 11:47 Pulse Ox 99 04/20/18 11:47 Intake & Output 04/18/18 04/19/18 04/20/18 04/21/18 06:59 06:59 06:59 06:59 Intake Total 310.72 / 310.72 1416 / 1416 1975 / Output Total 2500 / 2500 4500 / 4500 700 / 700 Balance -2189.28 / -2189.28 -3084 / -3084 1276 / 1276 208 / 208 Weight 80 kg Narrative: GENERAL: NAD, A&Ox3 HEAD: Normocephalic. NECK: Supple, trachea midline. No lymphadenopathy. EYES: No scleral icterus. No injection or drainage. CARDIOVASCULAR: Regular rate and rhythm without murmurs, gallops, or rubs. RESPIRATORY: Breath sounds equal bilaterally. No accessory muscle use. GASTROINTESTINAL: Abdomen soft, non-tender, nondistended. MUSCULOSKELETAL: No cyanosis, or edema. SKIN: Warm and dry. NEURO: Right-sided hemiplegia significantly improved. Right upper extremity 4/ 5. Right lower 3/5. able to stand without assistance Urinary Catheter Management Indwelling Urethral Catheter: Cath placed during this visit: yes Urethral indwelling: Yes Reason for continuing: Chronic Urinary Retention Insertion date: 04/17/18 Insertion time: 06:58 Results Labs CBC & Chem 7: 04/18/18 07:55 04/18/18 07:55 Assessment and Plan Plan 42-year-old female admitted secondary to MS exacerbation with right hemiplegia MS exacerbation versus progression Vertigo Right hemiplegia Neurology consulted; continue steroids. MRI studies on hold secondary to implanted bladder stimulator Possibility of MRI of head exists patient sent to [place] for exam Physical therapy and rehab consults Hypertension Continue baseline treatment Follow blood pressures Adjust treatments as needed Chronic incontinence Dysfunctional bladder stimulator Revision of bladder stimulator in process as an outpatient Freeman catheter placed Follow clinically Chronic pain with acute exacerbation Increased tramadol dose; improved Intermittent anxiety Ativan as needed Consider changing Wellbutrin to Abilify as this may be more effective for MS Chronic depression Dry eyes Gastroesophageal reflux disease Migraine headaches Seasonal allergies All chronic-no change to baseline treatments Follow these conditions clinically DVT Prophylaxis SCDs Progress Note: Quality VTE Deep Vein Thrombosis/Pulmonary Embolism Present on Admission: No
[2018-04-20] MEDS: LORazepam 0.5 MG Tablet PO PRN (16:50)
[2018-04-20] MEDS: Montelukast 10 MG Tablet PO SCH (18:37)
--- NOTE | 2018-04-20 21:02 | P.PNNEU ---
Subjective Subjective Comments: feels strength improving. Having a lot of muscle spasm pain Active Medications: Active Medications Acetaminophen (Tylenol) 650 mg PO Q4H PRN PRN Reason: Temp > 100.4 Al Hydroxide/Mg Hydroxide (Milk Of Abram Maza) 30 ml PO Q12H PRN PRN Reason: Mild Constipation Amlodipine Besylate (Norvasc) 5 mg PO HS [facility] Last Admin: 04/19/18 21:07 Dose: 5 mg Baclofen (Lioresal) 10 mg PO Q8HR [facility] Bupropion HCl (Wellbutrin Sr) 150 mg PO BID [facility] Last Admin: 04/20/18 08:51 Dose: 150 mg Cyclobenzaprine HCl (Flexeril) 5 mg PO TID PRN PRN Reason: SPASM Last Admin: 04/19/18 18:31 Dose: 5 mg Famotidine (Pepcid) 20 mg PO BID [facility] Last Admin: 04/20/18 08:50 Dose: 20 mg Fluticasone Propionate (Flonase Nasal [place]) 1 spray EACH NARE DAILY [facility] Last Admin: 04/20/18 08:50 Dose: 1 spray Gabapentin (Neurontin) 800 mg PO TID [facility] Last Admin: 04/20/18 18:37 Dose: 800 mg Heparin Sodium (Porcine) (Heparin Inj) 5,000 units SQ Q12HR [facility] Last Admin: 04/20/18 08:51 Dose: 5,000 units Methylprednisolone Sodium Succinate 250 mg/ Sodium Chloride 104 mls @ 104 mls/ hr IV.SIG Q6H [facility] Last Infusion: 04/20/18 15:15 Dose: Infused Lamotrigine (Lamictal) 200 mg PO BID [facility] Last Admin: 04/20/18 08:51 Dose: 200 mg Lorazepam (Ativan) 0.5 mg PO Q8H PRN PRN Reason: ANXIETY AND/OR AGITATION Last Admin: 04/20/18 16:50 Dose: 0.5 mg Meclizine HCl (Antivert) 25 mg PO QID PRN PRN Reason: VERTIGO Last Admin: 04/18/18 17:58 Dose: 25 mg Miscellaneous (Pill Splitter) 1 each OTHER UNSCH [facility] Last Admin: 04/19/18 18:33 Dose: 1 each Montelukast Sodium (Singulair) 10 mg PO QPM [facility] Last Admin: 04/20/18 18:37 Dose: 10 mg Naloxone HCl (Narcan Inj) 0.4 mg IV.PUSH UNSCH PRN PRN Reason: SEE LABEL COMMENTS Ondansetron HCl (Zofran Inj) 4 mg IV.PUSH Q6H PRN PRN Reason: NAUSEA OR VOMITING Pantoprazole Sodium (Protonix) 40 mg PO DAILY [facility] Last Admin: 04/20/18 08:51 Dose: 40 mg Pt Own Med ( Cyclosporine [ Restasis] 1 Drp) 0 each EACH EYE Q12H [facility] Pt Own Med:( Mometasone- Formoterol [Dulera] 2 Puff) 0 each INH Q12H [facility] Pt Own Med : ( Teriflunomide [ Aubagio] 14 Mg) 0 each PO DAILY [facility] Prazosin HCl (Minipress) 1 mg PO HS [facility] Last Admin: 04/19/18 21:07 Dose: 1 mg Sodium Chloride (Ns Flush) 2 ml IV.FLUSH PRN PRN PRN Reason: FLUSH AFTER USING IV ACCESS Sodium Chloride (Ns Flush) 2 ml IV.FLUSH BID [facility] Last Admin: 04/20/18 08:51 Dose: 2 ml Sucralfate (Carafate) 1 gm PO TID PRN PRN Reason: gerd Sumatriptan Succinate (Imitrex 20 Mg Nasal [place]) 1 spray ONE NARE DAILY PRN PRN Reason: migraines Last Admin: 04/20/18 09:12 Dose: 1 spray Tramadol HCl (Ultram) 50 mg PO Q6H PRN PRN Reason: PAIN 1-5 Last Admin: 04/19/18 08:08 Dose: 50 mg Tramadol HCl (Ultram) 100 mg PO Q4H PRN PRN Reason: PAIN SCALE 6 TO 10 Last Admin: 04/20/18 16:50 Dose: 100 mg Trazodone HCl (Desyrel) 150 mg PO HS PRN PRN Reason: SLEEP Last Admin: 04/20/18 02:07 Dose: 150 mg Vitamin D (Vitamin D3) 5,000 unit PO DAILY [facility] Last Admin: 04/20/18 08:50 Dose: 5,000 unit Allergies/Adverse Reactions: Allergies Allergy/AdvReac Type Severity Reaction Status Date / Time oxycodone Allergy Intermediate RASH Verified 04/17/18 05:00 Physical Exam Vital signs: Vital Signs 04/20/18 00:00 04/20/18 04:00 04/20/18 07:23 Temperature 98.9 F 98.3 F 98.4 F Pulse Rate 102 H 92 H 93 H Respiratory Rate 12 16 16 Blood Pressure 128/75 118/66 127/72 Pulse Oximetry 98 96 99 04/20/18 11:47 04/20/18 16:00 04/20/18 19:32 Temperature 98.2 F 98.8 F Pulse Rate 99 H 98 H 100 H Respiratory Rate 16 16 16 Blood Pressure 137/79 134/14 L 139/78 Pulse Oximetry 99 99 96 Intake & Output 04/20/18 04/20/18 04/21/18 06:59 18:59 06:59 Intake Total 1048 / 1048 1708 / 1708 Output Total 700 / 700 840 / 840 Balance 348 / 348 868 / 868 Weight 80 kg Intake: IV 208 / 208 208 / 208 SoluMEDROL Inj 250 MG In NS Inj 208 / 208 208 / 208 100 ML @ 104 mls/hr IV.SIG Q6H [facility] Rx#:[id number] Oral 840 / 840 1500 / 1500 Output: Urine 700 / 700 840 / 840 - Routine Neurological Exam alert, speech fluent CN intact MOTOR 4/5 BUE and BLE - Urinary Catheter Management Indwelling Urethral Catheter Cath placed during this visit: yes Urethral indwelling: Yes Reason for continuing: Chronic Urinary Retention Insertion date: 04/17/18 Insertion time: 06:58 Review/Management - Review/Management Plan: continue iv solumedrol 3-5 days evaluate for in patient rehab at [facility] start baclofen 10 mg tid for pain
[2018-04-20] MEDS: Prazosin HCl 1 MG Capsule PO SCH (21:11)
[2018-04-20] MEDS: amLODIPine 5 MG Tablet PO SCH (21:12)
[2018-04-20] MEDS: Baclofen 10 MG Tablet PO SCH (21:29)
[2018-04-21] MEDS: MethylPREDNISolone Sod Suc Inj 250 MG in Sodium Chlor 0.9% Inj 100 ML IV.SIG SCH ×4 (02:43→21:06)
[2018-04-21] MEDS: SUMATRIPTAN SUCCINATE ONE NARE PRN ×2 (06:45→06:48)
[2018-04-21] MEDS: Baclofen 10 MG Tablet PO SCH ×3 (06:48→21:08)
[2018-04-21] MEDS: buPROPion 150 MG 12 HR Tablet PO SCH ×2 (09:15→21:08)
[2018-04-21] MEDS: Famotidine 20 MG Tablet PO SCH ×2 (09:16→21:07)
[2018-04-21] MEDS: Gabapentin 400 MG Capsule PO SCH ×3 (09:16→18:32)
[2018-04-21] MEDS: Heparin - SQ 10,000 UNITS/ML Vial SQ SCH ×2 (09:31→21:07)
[2018-04-21] MEDS: LORazepam 0.5 MG Tablet PO PRN ×2 (09:47→18:36)
[2018-04-21] MEDS: lamoTRIgine 100 MG Tablet PO SCH ×2 (11:36→21:08)
--- NOTE | 2018-04-21 14:47 | P.PNIM ---
Subjective Interval history: Patient is seen sitting up on side of bed. She is much more relaxed and calm today. She feels that she is continuing to make progress with her mobility and strength on her right side however she finds that after she lays still or sleeps she goes backwards and once again develops weakness as well as increased pain. Pain is variable and often includes a feeling of burning on left side and cold on right side. Physical Exam Vital signs: Last Vital Signs Temp 98.6 F 04/21/18 08:00 Pulse 92 H 04/21/18 08:00 Resp 16 04/21/18 08:00 BP 175/84 H 04/21/18 08:00 Pulse Ox 98 04/21/18 08:00 Intake & Output 04/19/18 04/20/18 04/21/18 04/22/18 06:59 06:59 06:59 06:59 Intake Total 1416 / 1416 1975 / 1975 3242 / 3242 Output Total 4500 / 4500 700 / 700 2640 / 2640 Balance -3084 / -3084 1276 / 1276 602 / 602 Weight 80 kg 80 kg Narrative: GENERAL: NAD, A&Ox3 HEAD: Normocephalic. NECK: Supple, trachea midline. No lymphadenopathy. EYES: No scleral icterus. No injection or drainage. CARDIOVASCULAR: Regular rate and rhythm without murmurs, gallops, or rubs. RESPIRATORY: Breath sounds equal bilaterally. No accessory muscle use. GASTROINTESTINAL: Abdomen soft, non-tender, nondistended. MUSCULOSKELETAL: No cyanosis, or edema. SKIN: Warm and dry. NEURO: Right-sided hemiplegia significantly improved. Right upper extremity 4/ 5. Right lower 3/5. able to stand without assistance Urinary Catheter Management Indwelling Urethral Catheter: Cath placed during this visit: yes Urethral indwelling: Yes Reason for continuing: Chronic Urinary Retention Insertion date: 04/17/18 Insertion time: 06:58 Results Labs CBC & Chem 7: 04/18/18 07:55 04/18/18 07:55 Assessment and Plan Plan 42-year-old female admitted secondary to MS exacerbation with right hemiplegia MS exacerbation versus progression Vertigo Right hemiplegia Neurology consulted; continue steroids. MRI studies on hold secondary to implanted bladder stimulator Possibility of MRI of head exists patient sent to [place] for exam Physical therapy and rehab consults Hypertension Continue baseline treatment Follow blood pressures Adjust treatments as needed Chronic incontinence Dysfunctional bladder stimulator Revision of bladder stimulator in process as an outpatient Freeman catheter placed Follow clinically Chronic pain with acute exacerbation Increased tramadol dose; improved Intermittent anxiety Ativan as needed Consider changing Wellbutrin to Abilify as this may be more effective for MS Chronic depression Dry eyes Gastroesophageal reflux disease Migraine headaches Seasonal allergies All chronic-no change to baseline treatments Follow these conditions clinically DVT Prophylaxis SCDs Discharge planning: At this time patient appears to be medically stable and may be considered for transfer to rehab after clearance by neuro (will need to either stop IV steroids or change to PO). Patient will also likely need home health/PT/social follow-up as she lives in a two-story home that does not accommodate her needs. Progress Note: Quality VTE Deep Vein Thrombosis/Pulmonary Embolism Present on Admission: No
[2018-04-21] MEDS: Montelukast 10 MG Tablet PO SCH (18:36)
[2018-04-21] MEDS: Prazosin HCl 1 MG Capsule PO SCH (21:08)
[2018-04-21] MEDS: amLODIPine 5 MG Tablet PO SCH (21:08)
[2018-04-21] MEDS: traZODone 50 MG Tablet PO PRN (21:17)
[2018-04-22] MEDS: MethylPREDNISolone Sod Suc Inj 250 MG in Sodium Chlor 0.9% Inj 100 ML IV.SIG SCH ×4 (01:30→20:18)
[2018-04-22] MEDS: buPROPion 150 MG 12 HR Tablet PO SCH ×2 (08:53→21:16)
[2018-04-22] MEDS: lamoTRIgine 100 MG Tablet PO SCH ×2 (08:53→21:17)
[2018-04-22] MEDS: Baclofen 10 MG Tablet PO SCH ×3 (08:54→21:18)
[2018-04-22] MEDS: Famotidine 20 MG Tablet PO SCH ×2 (08:54→21:17)
[2018-04-22] MEDS: Gabapentin 400 MG Capsule PO SCH ×3 (08:54→18:38)
[2018-04-22] MEDS: Heparin - SQ 10,000 UNITS/ML Vial SQ SCH ×2 (08:55→21:16)
[2018-04-22] MEDS: SUMATRIPTAN SUCCINATE ONE NARE PRN ×2 (09:00→18:40)
[2018-04-22] MEDS: LORazepam 0.5 MG Tablet PO PRN ×2 (09:00→18:39)
--- NOTE | 2018-04-22 12:09 | P.PNNEU ---
Subjective Subjective Comments: tolerating solumedrol Still weak and with memory loss Active Medications: Active Medications Acetaminophen (Tylenol) 650 mg PO Q4H PRN PRN Reason: Temp > 100.4 Al Hydroxide/Mg Hydroxide (Milk Of Magnjackie Liq) 30 ml PO Q12H PRN PRN Reason: Mild Constipation Amlodipine Besylate (Norvasc) 5 mg PO HS [facility] Last Admin: 04/21/18 21:08 Dose: 5 mg Baclofen (Lioresal) 10 mg PO Q8HR [facility] Last Admin: 04/22/18 08:54 Dose: 10 mg Bupropion HCl (Wellbutrin Sr) 150 mg PO BID [facility] Last Admin: 04/22/18 08:53 Dose: 150 mg Cyclobenzaprine HCl (Flexeril) 5 mg PO TID PRN PRN Reason: SPASM Last Admin: 04/21/18 18:37 Dose: 5 mg Famotidine (Pepcid) 20 mg PO BID [facility] Last Admin: 04/22/18 08:54 Dose: 20 mg Fluticasone Propionate (Flonase Nasal [place]) 1 spray EACH NARE DAILY [facility] Last Admin: 04/22/18 08:55 Dose: 1 spray Gabapentin (Neurontin) 800 mg PO TID [facility] Last Admin: 04/22/18 08:54 Dose: 800 mg Heparin Sodium (Porcine) (Heparin Inj) 5,000 units SQ Q12HR [facility] Last Admin: 04/22/18 08:55 Dose: 5,000 units Methylprednisolone Sodium Succinate 250 mg/ Sodium Chloride 104 mls @ 104 mls/ hr IV.SIG Q6H [facility] Last Infusion: 04/22/18 09:52 Dose: Infused Lamotrigine (Lamictal) 200 mg PO BID [facility] Last Admin: 04/22/18 08:53 Dose: 200 mg Lorazepam (Ativan) 0.5 mg PO Q8H PRN PRN Reason: ANXIETY AND/OR AGITATION Last Admin: 04/22/18 09:00 Dose: 0.5 mg Meclizine HCl (Antivert) 25 mg PO QID PRN PRN Reason: VERTIGO Last Admin: 04/18/18 17:58 Dose: 25 mg Miscellaneous (Pill Splitter) 1 each OTHER UNSCH [facility] Last Admin: 04/19/18 18:33 Dose: 1 each Montelukast Sodium (Singulair) 10 mg PO QPM [facility] Last Admin: 04/21/18 18:36 Dose: 10 mg Naloxone HCl (Narcan Inj) 0.4 mg IV.PUSH UNSCH PRN PRN Reason: SEE LABEL COMMENTS Ondansetron HCl (Zofran Inj) 4 mg IV.PUSH Q6H PRN PRN Reason: NAUSEA OR VOMITING Last Admin: 04/21/18 09:48 Dose: 4 mg Pantoprazole Sodium (Protonix) 40 mg PO DAILY [facility] Last Admin: 04/22/18 08:53 Dose: 40 mg Pt Own Med ( Cyclosporine [ Restasis] 1 Drp) 0 each EACH EYE Q12H [facility] Pt Own Med:( Mometasone- Formoterol [Dulera] 2 Puff) 0 each INH Q12H [facility] Pt Own Med : ( Teriflunomide [ Aubagio] 14 Mg) 0 each PO DAILY [facility] Prazosin HCl (Minipress) 1 mg PO HS [facility] Last Admin: 04/21/18 21:08 Dose: 1 mg Sodium Chloride (Ns Flush) 2 ml IV.FLUSH PRN PRN PRN Reason: FLUSH AFTER USING IV ACCESS Sodium Chloride (Ns Flush) 2 ml IV.FLUSH BID [facility] Last Admin: 04/22/18 08:55 Dose: 2 ml Sucralfate (Carafate) 1 gm PO TID PRN PRN Reason: gerd Sumatriptan Succinate (Imitrex 20 Mg Nasal [place]) 1 spray ONE NARE DAILY PRN PRN Reason: migraines Last Admin: 04/22/18 09:00 Dose: 1 spray Tramadol HCl (Ultram) 50 mg PO Q6H PRN PRN Reason: PAIN 1-5 Last Admin: 04/19/18 08:08 Dose: 50 mg Tramadol HCl (Ultram) 100 mg PO Q4H PRN PRN Reason: PAIN SCALE 6 TO 10 Last Admin: 04/20/18 16:50 Dose: 100 mg Trazodone HCl (Desyrel) 150 mg PO HS PRN PRN Reason: SLEEP Last Admin: 04/21/18 21:17 Dose: 150 mg Vitamin D (Vitamin D3) 5,000 unit PO DAILY [facility] Last Admin: 04/22/18 08:54 Dose: 5,000 unit Allergies/Adverse Reactions: Allergies Allergy/AdvReac Type Severity Reaction Status Date / Time oxycodone Allergy Intermediate RASH Verified 04/17/18 05:00 Physical Exam Vital signs: Vital Signs 04/21/18 16:00 04/21/18 19:49 04/21/18 23:14 Temperature 98.3 F 97.7 F Pulse Rate 88 107 H 88 Respiratory Rate 16 18 16 Blood Pressure 139/81 155/76 H 140/94 H Pulse Oximetry 97 97 97 04/22/18 04:00 04/22/18 08:00 Temperature 98.1 F 98.2 F Pulse Rate 99 H 108 H Respiratory Rate 16 20 Blood Pressure 120/84 138/83 Pulse Oximetry 100 96 Intake & Output 04/21/18 04/22/18 04/22/18 18:59 06:59 18:59 Intake Total 104 / 104 688 / 688 104 / 104 Output Total 825 / 825 750 / 750 Balance 104 / 104 -137 / -137 -646 / -646 Intake: IV 104 / 104 208 / 208 104 / 104 SoluMEDROL Inj 250 MG In NS Inj 104 / 104 208 / 208 104 / 104 100 ML @ 104 mls/hr IV.SIG Q6H [facility] Rx#:[id number] Oral 480 / 480 Output: Urine 750 / 750 Urine Amount (Catheter) 825 / 825 Indwelling Urethral Catheter 825 / 825 Other: Date of Last Bowel Movement 04/19/18 - Routine Neurological Exam alert, oriented, follow commands Cn normal MOTOR 4/5 BUE and BLE - Urinary Catheter Management Indwelling Urethral Catheter Cath placed during this visit: yes Urethral indwelling: Yes Reason for continuing: Chronic Urinary Retention Insertion date: 04/17/18 Insertion time: 06:58 Review/Management - Review/Management Plan: continue iv solumedrol 3-5 days evaluate for in patient rehab at [facility] start baclofen 10 mg tid for pain
--- NOTE | 2018-04-22 17:47 | P.PNIM ---
Subjective Interval history: Patient lying quietly in bed. Progress appears to have plateaued. Still having frequent burning sensations. Has difficulty moving after lying still for a while. Continues to have intermittent memory problems. She does clarify for me that she lives with her parents who own the home. It is two-story and she is not able to get up the stairs but she is able to sleep on the couch downstairs. Her school aged children live with her and her parents. She does have support from other adults including her aunt. Physical Exam Vital signs: Last Vital Signs Temp 98.4 F 04/22/18 15:00 Pulse 109 H 04/22/18 15:00 Resp 20 04/22/18 15:00 BP 126/76 04/22/18 15:00 Pulse Ox 98 04/22/18 15:00 Intake & Output 04/20/18 04/21/18 04/22/18 04/23/18 06:59 06:59 06:59 06:59 Intake Total 1975 / 1975 3242 / 3242 792 / 792 208 / 208 Output Total 700 / 700 2640 / 2640 825 / 825 1300 / 1300 Balance 1276 / 1276 602 / 602 -33 / -33 -1092 / -1092 Weight 80 kg 80 kg Narrative: GENERAL: NAD, A&Ox3 HEAD: Normocephalic. NECK: Supple, trachea midline. No lymphadenopathy. EYES: No scleral icterus. No injection or drainage. CARDIOVASCULAR: Regular rate and rhythm without murmurs, gallops, or rubs. RESPIRATORY: Breath sounds equal bilaterally. No accessory muscle use. GASTROINTESTINAL: Abdomen soft, non-tender, nondistended. MUSCULOSKELETAL: No cyanosis, or edema. SKIN: Warm and dry. NEURO: Right-sided hemiplegia significantly improved. Right upper extremity 4/ 5. Right lower 3/5. able to stand without assistance Urinary Catheter Management Indwelling Urethral Catheter: Cath placed during this visit: yes Urethral indwelling: Yes Reason for continuing: Chronic Urinary Retention Insertion date: 04/17/18 Insertion time: 06:58 Results Labs CBC & Chem 7: 04/18/18 07:55 04/18/18 07:55 Assessment and Plan Plan 42-year-old female admitted secondary to MS exacerbation with right hemiplegia MS exacerbation versus progression Vertigo Right hemiplegia Neurology consulted; continue steroids. MRI studies on hold secondary to implanted bladder stimulator Possibility of MRI of head exists patient sent to [place] for exam Physical therapy and rehab consults Hypertension Continue baseline treatment Follow blood pressures Adjust treatments as needed Chronic incontinence Dysfunctional bladder stimulator Revision of bladder stimulator in process as an outpatient Freeman catheter placed Follow clinically Chronic pain with acute exacerbation Increased tramadol dose; improved Intermittent anxiety Ativan as needed Consider changing Wellbutrin to Abilify as this may be more effective for MS Chronic depression Dry eyes Gastroesophageal reflux disease Migraine headaches Seasonal allergies All chronic-no change to baseline treatments Follow these conditions clinically DVT Prophylaxis SCDs Discharge planning: At this time patient appears to be medically stable and may be considered for transfer to rehab after clearance by neuro (will need to either stop IV steroids or change to PO). Progress Note: Quality VTE Deep Vein Thrombosis/Pulmonary Embolism Present on Admission: No
[2018-04-22] MEDS: Montelukast 10 MG Tablet PO SCH (18:38)
[2018-04-22] MEDS: Prazosin HCl 1 MG Capsule PO SCH (21:16)
[2018-04-22] MEDS: amLODIPine 5 MG Tablet PO SCH (21:17)
[2018-04-23] MEDS: MethylPREDNISolone Sod Suc Inj 250 MG in Sodium Chlor 0.9% Inj 100 ML IV.SIG SCH ×4 (02:03→20:12)
--- NOTE | 2018-04-23 04:18 | P.AMA ---
AMA Note Discharge Summary AMA Statement: Patient Mele Dean has decided to leave the hospital against medical advice. Notified by the hot metal charger that she has left. This patient has the capacity to refuse care. The patient has been informed that he/she may return for care at any time, and follow up has been arranged/advised.
[2018-04-23] MEDS: Baclofen 10 MG Tablet PO SCH ×3 (05:28→21:49)
[2018-04-23] MEDS: LORazepam 0.5 MG Tablet PO PRN ×2 (05:28→21:54)
[2018-04-23] MEDS: Famotidine 20 MG Tablet PO SCH ×2 (08:34→21:49)
[2018-04-23] MEDS: Gabapentin 400 MG Capsule PO SCH ×3 (08:34→18:28)
[2018-04-23] MEDS: lamoTRIgine 100 MG Tablet PO SCH ×2 (08:35→21:49)
[2018-04-23] MEDS: buPROPion 150 MG 12 HR Tablet PO SCH ×2 (08:35→21:49)
[2018-04-23] MEDS: Heparin - SQ 10,000 UNITS/ML Vial SQ SCH ×2 (08:36→21:50)
--- NOTE | 2018-04-23 16:41 | P.PNIM ---
Subjective Interval history: Patient is seen sitting on side of bed. She is very teary and upset. She feels like she is "going crazy" and says "this behavior is not her". Reports increasing forgetfulness and that she is needing visual cues such as photos to remember family members. Experiencing some hallucination- like visions that come and go. Woke up last night paranoid and thinking that her family was coming to pick her up, eventually was redirected and convinced to stay. Physical Exam Vital signs: Last Vital Signs Temp 97.4 F L 04/23/18 16:00 Pulse 96 H 04/23/18 16:00 Resp 20 04/23/18 16:00 BP 131/69 04/23/18 16:00 Pulse Ox 97 04/23/18 16:00 Intake & Output 04/21/18 04/22/18 04/23/18 04/24/18 06:59 06:59 06:59 06:59 Intake Total 3242 / 3242 792 / 792 1236 / 1236 208 / 208 Output Total 2640 / 2640 825 / 825 3100 / 3100 Balance 602 / 602 -33 / -33 -1864 / -1864 207 / 207 Weight 80 kg 80 kg Narrative: GENERAL: NAD, A&Ox3 HEAD: Normocephalic. NECK: Supple, trachea midline. No lymphadenopathy. EYES: No scleral icterus. No injection or drainage. CARDIOVASCULAR: Regular rate and rhythm without murmurs, gallops, or rubs. RESPIRATORY: Breath sounds equal bilaterally. No accessory muscle use. GASTROINTESTINAL: Abdomen soft, non-tender, nondistended. MUSCULOSKELETAL: No cyanosis, or edema. SKIN: Warm and dry. NEURO: Right-sided hemiplegia significantly improved. Right upper extremity 4/ 5. Right lower 3/5. able to stand without assistance Urinary Catheter Management Indwelling Urethral Catheter: Cath placed during this visit: yes Urethral indwelling: Yes Reason for continuing: Chronic Urinary Retention Insertion date: 04/17/18 Insertion time: 06:58 Results Labs CBC & Chem 7: 04/18/18 07:55 04/18/18 07:55 Assessment and Plan (1) MS (multiple sclerosis): Code(s): G35 - Multiple sclerosis Status: Acute (2) Weakness: Code(s): R53.1 - Weakness Status: Acute (3) Impaired mobility and activities of daily living: Code(s): Z74.09 - Other reduced mobility Status: Acute (4) Anxiety: Code(s): F41.9 - Anxiety disorder, unspecified Status: Acute (5) Acute pain: Code(s): R52 - Pain, unspecified Status: Acute (6) Behavior disturbance: Code(s): F91.9 - Conduct disorder, unspecified Status: Acute Plan 42-year-old female admitted secondary to MS exacerbation with right hemiplegia MS exacerbation versus progression Vertigo; Right hemiplegia Neurology consulted; continue steroids. MRI studies on hold secondary to implanted bladder stimulator Possibility of MRI of head exists patient sent to [place] for exam Physical therapy and rehab consults Chronic pain with acute exacerbation Increased tramadol dose; improved Intermittent anxiety with forgetfulness and paranoia Ativan as needed; needing increasing doses to control overwhelming anxiety Consult placed to neuropsychiatry for assistance Chronic depression; worsening Consider changing Wellbutrin to Abilify as this may be more effective for MS Chronic incontinence Dysfunctional bladder stimulator Revision of bladder stimulator in process as an outpatient Freeman catheter placed Follow clinically Hypertension Dry eyes Gastroesophageal reflux disease Migraine headaches Seasonal allergies All chronic-no change to baseline treatments Follow these conditions clinically DVT Prophylaxis SCDs Discharge planning: At this time patient appears to be medically stable and may be considered for transfer to rehab after clearance by neuro Progress Note: Quality VTE Deep Vein Thrombosis/Pulmonary Embolism Present on Admission: No
[2018-04-23] MEDS: Montelukast 10 MG Tablet PO SCH (18:28)
[2018-04-23] MEDS: Nystatin Liq 500,000 UNIT/5 ML UDC SWISH-SWAL SCH ×2 (18:30→23:28)
[2018-04-23] MEDS: SUMATRIPTAN SUCCINATE ONE NARE PRN (18:43)
[2018-04-23] MEDS: Prazosin HCl 1 MG Capsule PO SCH (21:49)
[2018-04-23] MEDS: amLODIPine 5 MG Tablet PO SCH (22:13)
[2018-04-23] MEDS: traZODone 50 MG Tablet PO PRN (23:31)
[2018-04-24] MEDS: MethylPREDNISolone Sod Suc Inj 250 MG in Sodium Chlor 0.9% Inj 100 ML IV.SIG SCH ×3 (02:25→14:37)
[2018-04-24 05:06] LABS: Baso % (Auto) 0.1 % (0.0-2.0); Hematocrit 33.8 % (35.0-46.0); Hemoglobin 10.8 gm/dL (11.6-15.3); Lymph # (Auto) 0.9 th/mm3 (1.0-4.8); Lymph % (Auto) 11.3 % (9.0-44.0); Mean Corpuscular HGB Conc 32.1 % (32.0-36.0); Mean Corpuscular Hemoglobin 28.7 pg (27.0-34.0); Mean Corpuscular Volume 89.6 fL (80.0-100.0); Mean Platelet Volume 7.9 fL (7.0-11.0); Mono # (Auto) 0.4 th/mm3 (0.0-0.9); Mono % (Auto) 4.8 % (0.0-8.0); Neut % (Auto) 83.8 % (16.0-70.0); Platelet Count 174 th/mm3 (150-450); Red Blood Count 3.77 mil/mm3 (4.00-5.30); White Blood Count 8.4 th/mm3 (4.0-11.0)
[2018-04-24] MEDS: LORazepam 0.5 MG Tablet PO PRN ×2 (05:14→11:09)
[2018-04-24] MEDS: Baclofen 10 MG Tablet PO SCH ×3 (05:14→21:56)
[2018-04-24 05:28] LABS: Calcium 7.8 mg/dL (8.5-10.1); Carbon Dioxide 33.5 meq/L (21.0-32.0); Potassium 4.4 meq/L (3.5-5.1)
--- NOTE | 2018-04-24 09:08 | P.PN ---
Subjective Interval history: Follow up for MS exacerbation, weakness, anxiety. The patient is tearful this morning. She states she has been very forgetful which makes her even more anxious. She reports continued weakness and inability to ambulate. Denies any new medical complaints. Physical Exam Vital signs: Vital Signs 04/23/18 11:25 04/23/18 16:00 04/23/18 19:19 Temperature 98.4 F 97.4 F L 98.5 F Pulse Rate 97 H 96 H 89 Respiratory Rate 20 20 12 Blood Pressure 120/76 131/69 159/92 H Pulse Oximetry 96 97 96 04/24/18 00:00 04/24/18 04:00 04/24/18 07:00 Temperature 98.4 F 98.3 F Pulse Rate 78 100 H Respiratory Rate 16 20 12 Blood Pressure 156/90 H 160/88 H Pulse Oximetry 99 90 L 04/24/18 07:52 Temperature 97.9 F Pulse Rate 90 Respiratory Rate 18 Blood Pressure 170/84 H Pulse Oximetry 99 Intake & Output 04/23/18 04/24/18 04/24/18 18:59 06:59 18:59 Intake Total 208 / 208 1468 / 1468 Output Total 601 / 601 1000 / 1000 Balance -393 / -393 468 / 468 Weight 80 kg Intake: IV SoluMEDROL Inj 250 MG In NS Inj 100 ML @ 104 mls/hr IV.SIG Q6H [facility] Rx#:[id number] Oral 1260 / 1260 Output: Urine 1000 / 1000 Stool 1 / 1 Urine Amount (Catheter) 600 / 600 Indwelling Urethral Catheter 600 / 600 Other: Date of Last Bowel Movement 04/23/18 04/23/18 Narrative: GENERAL: Well developed middle aged female patient in NAD, A&Ox3 SKIN: Warm and dry. No rash. HEENT: Normocephalic. No scleral icterus. No injection or drainage. MMM. CARDIOVASCULAR: Regular rate and rhythm without murmurs, gallops, or rubs. RESPIRATORY: Breath sounds equal bilaterally. No accessory muscle use. GASTROINTESTINAL: Abdomen soft, non-tender, nondistended. MUSCULOSKELETAL: No cyanosis, or edema. NEURO: Right-sided hemiplegia, improving. Right upper extremity 4/5. Right lower 2/5. Stands without assistance, however difficulty with ambulation. - Urinary Catheter Management Indwelling Urethral Catheter Cath placed during this visit: yes Urethral indwelling: Yes Reason for continuing: Chronic Urinary Retention Insertion date: 04/17/18 Insertion time: 06:58 Results - Labs CBC & Chem 7: 04/24/18 04:27 04/24/18 04:27 Laboratory Results - last 24 hr 04/24/18 04/24/18 04:27 04:27 WBC 8.4 RBC 3.77 L Hgb 10.8 L Hct 33.8 L MCV 89.6 MCH 28.7 MCHC 32.1 RDW 17.0 Plt Count 174 MPV 7.9 Neut % (Auto) 83.8 H Lymph % (Auto) 11.3 [place] % (Auto) 4.8 Eos % (Auto) 0.0 Baso % (Auto) 0.1 Neut # (Auto) 7.0 Lymph # (Auto) 0.9 L [place] # (Auto) 0.4 Eos # (Auto) 0.0 Baso # (Auto) 0.0 WBC Differential . Differential Comment Auto diff final Sodium 141 Potassium 4.4 Chloride 103 Carbon Dioxide 33.5 H Anion Gap 5 BUN 14 Creatinine 0.93 Estimated GFR 80 L Random Glucose 199 H Calcium 7.8 L - Imaging Ankle X-Ray 04/17/18 05:35 CONCLUSION: Negative examination Femur X-Ray 04/17/18 05:35 CONCLUSION: Negative examination Knee X-Ray 04/17/18 05:35 CONCLUSION: Negative examination Pelvis X-Ray 04/17/18 05:35 CONCLUSION: Negative examination. Head CT 04/17/18 05:50 CONCLUSION: 1. Negative CT Head non contrast. Assessment and Plan - Assessment (1) MS (multiple sclerosis) Code(s): G35 - Multiple sclerosis Status: Acute (2) Weakness Code(s): R53.1 - Weakness Status: Acute (3) Impaired mobility and activities of daily living Code(s): Z74.09 - Other reduced mobility Status: Acute (4) Anxiety Code(s): F41.9 - Anxiety disorder, unspecified Status: Acute (5) Acute pain Code(s): R52 - Pain, unspecified Status: Acute (6) Behavior disturbance Code(s): F91.9 - Conduct disorder, unspecified Status: Acute - Plan 42-year-old female admitted secondary to MS exacerbation with right hemiplegia MS exacerbation versus progression Vertigo; Right hemiplegia Neurology consulted; continue steroids with IV Solumedrol 250mg q6h. MRI studies on hold secondary to implanted bladder stimulator Possibility of MRI of head exists, patient sent to [place] for exam, try to obtain records Physical therapy and rehab consults, likely needs rehab Chronic pain with acute exacerbation Increased tramadol dose; improved Intermittent anxiety with forgetfulness and paranoia Ativan as needed; needing increasing doses to control overwhelming anxiety Consult placed to neuropsychiatry for assistance Chronic depression; worsening Continue patient's wellbutrin, appreciate neuropsych assistance Chronic incontinence Dysfunctional bladder stimulator Revision of bladder stimulator in process as an outpatient Freeman catheter placed Follow clinically Hypertension Dry eyes Gastroesophageal reflux disease Migraine headaches Seasonal allergies All chronic-no change to baseline treatments Follow these conditions clinically DVT Prophylaxis SCDs Discharge planning: At this time patient appears to be medically stable and may be considered for transfer to rehab after clearance by neuro
[2018-04-24] MEDS: Gabapentin 400 MG Capsule PO SCH ×3 (09:13→17:31)
[2018-04-24] MEDS: Nystatin Liq 500,000 UNIT/5 ML UDC SWISH-SWAL SCH ×4 (09:13→21:56)
[2018-04-24] MEDS: Heparin - SQ 10,000 UNITS/ML Vial SQ SCH ×2 (09:13→21:54)
[2018-04-24] MEDS: buPROPion 150 MG 12 HR Tablet PO SCH ×2 (09:13→21:56)
[2018-04-24] MEDS: Famotidine 20 MG Tablet PO SCH ×2 (09:13→21:56)
[2018-04-24] MEDS: lamoTRIgine 100 MG Tablet PO SCH ×2 (09:13→21:54)
[2018-04-24] MEDS ORDERED: Haloperidol Inj 5 MG/ML Ampul IV.PUSH ONE (16:00)
--- NOTE | 2018-04-24 16:40 | P.PNNEU ---
Subjective Subjective Comments: pt having difficulty with memory Feels strength is improved slightly Active Medications: Active Medications Acetaminophen (Tylenol) 650 mg PO Q4H PRN PRN Reason: Temp > 100.4 Last Admin: 04/22/18 12:39 Dose: 650 mg Al Hydroxide/Mg Hydroxide (Milk Of Abram Maza) 30 ml PO Q12H PRN PRN Reason: Mild Constipation Amlodipine Besylate (Norvasc) 5 mg PO HS [facility] Last Admin: 04/23/18 22:13 Dose: 5 mg Baclofen (Lioresal) 10 mg PO Q8HR [facility] Last Admin: 04/24/18 13:34 Dose: 10 mg Bupropion HCl (Wellbutrin Sr) 150 mg PO BID [facility] Last Admin: 04/24/18 09:13 Dose: 150 mg Clonidine HCl (Catapres) 0.1 mg PO Q6H PRN PRN Reason: SBP> OR = 180, DBP> OR = 100 Cyclobenzaprine HCl (Flexeril) 5 mg PO TID PRN PRN Reason: SPASM Last Admin: 04/24/18 13:34 Dose: 5 mg Famotidine (Pepcid) 20 mg PO BID [facility] Last Admin: 04/24/18 09:13 Dose: 20 mg Fluticasone Propionate (Flonase Nasal [place]) 1 spray EACH NARE DAILY [facility] Last Admin: 04/24/18 09:14 Dose: 1 spray Gabapentin (Neurontin) 800 mg PO TID [facility] Last Admin: 04/24/18 13:34 Dose: 800 mg Heparin Sodium (Porcine) (Heparin Inj) 5,000 units SQ Q12HR [facility] Last Admin: 04/24/18 09:13 Dose: 5,000 units Lamotrigine (Lamictal) 200 mg PO BID [facility] Last Admin: 04/24/18 09:13 Dose: 200 mg Lorazepam (Ativan) 1 mg PO Q6H PRN PRN Reason: ANXIETY AND/OR AGITATION Last Admin: 04/24/18 11:09 Dose: 1 mg Meclizine HCl (Antivert) 25 mg PO QID PRN PRN Reason: VERTIGO Last Admin: 04/23/18 21:54 Dose: 25 mg Miscellaneous (Pill Splitter) 1 each OTHER UNSCH [facility] Last Admin: 04/19/18 18:33 Dose: 1 each Montelukast Sodium (Singulair) 10 mg PO QPM [facility] Last Admin: 04/23/18 18:28 Dose: 10 mg Naloxone HCl (Narcan Inj) 0.4 mg IV.PUSH UNSCH PRN PRN Reason: SEE LABEL COMMENTS Nystatin (Mycostatin Liq) 5 ml SWISH-SWAL QID [facility] Last Admin: 04/24/18 13:34 Dose: 5 ml Ondansetron HCl (Zofran Inj) 4 mg IV.PUSH Q6H PRN PRN Reason: NAUSEA OR VOMITING Last Admin: 04/23/18 21:54 Dose: 4 mg Pantoprazole Sodium (Protonix) 40 mg PO DAILY [facility] Last Admin: 04/24/18 09:13 Dose: 40 mg Pt Own Med ( Cyclosporine [ Restasis] 1 Drp) 0 each EACH EYE Q12H [facility] Pt Own Med:( Mometasone- Formoterol [Dulera] 2 Puff) 0 each INH Q12H [facility] Pt Own Med : ( Teriflunomide [ Aubagio] 14 Mg) 0 each PO DAILY [facility] Prazosin HCl (Minipress) 1 mg PO HS [facility] Last Admin: 04/23/18 21:49 Dose: 1 mg Sodium Chloride (Ns Flush) 2 ml IV.FLUSH PRN PRN PRN Reason: FLUSH AFTER USING IV ACCESS Sodium Chloride (Ns Flush) 2 ml IV.FLUSH BID [facility] Last Admin: 04/24/18 09:13 Dose: 2 ml Sucralfate (Carafate) 1 gm PO TID PRN PRN Reason: gerd Sumatriptan Succinate (Imitrex 20 Mg Nasal [place]) 1 spray ONE NARE DAILY PRN PRN Reason: migraines Last Admin: 04/23/18 18:43 Dose: 1 spray Tramadol HCl (Ultram) 50 mg PO Q6H PRN PRN Reason: PAIN 1-5 Last Admin: 04/19/18 08:08 Dose: 50 mg Tramadol HCl (Ultram) 100 mg PO Q4H PRN PRN Reason: PAIN SCALE 6 TO 10 Last Admin: 04/24/18 09:15 Dose: 100 mg Trazodone HCl (Desyrel) 150 mg PO HS PRN PRN Reason: SLEEP Last Admin: 04/23/18 23:31 Dose: 150 mg Vitamin D (Vitamin D3) 5,000 unit PO DAILY [facility] Last Admin: 04/24/18 09:13 Dose: 5,000 unit Allergies/Adverse Reactions: Allergies Allergy/AdvReac Type Severity Reaction Status Date / Time oxycodone Allergy Intermediate RASH Verified 04/17/18 05:00 Physical Exam Vital signs: Vital Signs 04/23/18 19:19 04/24/18 00:00 04/24/18 04:00 Temperature 98.5 F 98.4 F 98.3 F Pulse Rate 89 78 100 H Respiratory Rate 12 16 20 Blood Pressure 159/92 H 156/90 H 160/88 H Pulse Oximetry 96 99 90 L 04/24/18 07:00 04/24/18 07:52 04/24/18 11:04 Temperature 97.9 F Pulse Rate 90 Respiratory Rate 12 18 12 Blood Pressure 170/84 H Pulse Oximetry 99 04/24/18 12:00 04/24/18 15:42 Temperature Pulse Rate 97 H 89 Respiratory Rate 16 16 Blood Pressure 152/89 H 175/98 H Pulse Oximetry 99 98 Intake & Output 04/23/18 04/24/18 04/24/18 18:59 06:59 18:59 Intake Total 208 / 208 1468 / 1468 208 / 208 Output Total 601 / 601 1000 / 1000 450 / 450 Balance -393 / -393 468 / 468 -242 / -242 Weight 80 kg Intake: IV 208 / 208 208 / 208 SoluMEDROL Inj 250 MG In NS Inj / 208 / 208 208 / 208 100 ML @ 104 mls/hr IV.SIG Q6H [facility] Rx#:[id number] Oral 1260 / 1260 Output: Urine 1000 / 1000 Stool 1 / 1 Urine Amount (Catheter) 600 / 600 450 / 450 Indwelling Urethral Catheter 600 / 600 450 / 450 Other: Date of Last Bowel Movement 04/23/18 04/23/18 04/24/18 - Routine Neurological Exam alert, oriented speech fluent , comprhension intact CN intact' MOTOR 4/5 BUE and BLE - Urinary Catheter Management Indwelling Urethral Catheter Cath placed during this visit: yes Urethral indwelling: Yes Reason for continuing: Chronic Urinary Retention Insertion date: 04/17/18 Insertion time: 06:58 Objective Laboratory Results - last 24 hr 04/24/18 04/24/18 04:27 04:27 WBC 8.4 RBC 3.77 L Hgb 10.8 L Hct 33.8 L MCV 89.6 MCH 28.7 MCHC 32.1 RDW 17.0 Plt Count 174 MPV 7.9 Neut % (Auto) 83.8 H Lymph % (Auto) 11.3 [place] % (Auto) 4.8 Eos % (Auto) 0.0 Baso % (Auto) 0.1 Neut # (Auto) 7.0 Lymph # (Auto) 0.9 L [place] # (Auto) 0.4 Eos # (Auto) 0.0 Baso # (Auto) 0.0 WBC Differential . Differential Comment Auto diff final Sodium 141 Potassium 4.4 Chloride 103 Carbon Dioxide 33.5 H Anion Gap 5 BUN 14 Creatinine 0.93 Estimated GFR 80 L Random Glucose 199 H Calcium 7.8 L Review/Management - Review/Management Plan: stop solumedrol consider inpatient rehab [facility]
[2018-04-24] MEDS: Montelukast 10 MG Tablet PO SCH (17:31)
[2018-04-24] MEDS: Prazosin HCl 1 MG Capsule PO SCH (21:55)
[2018-04-24] MEDS: amLODIPine 5 MG Tablet PO SCH (21:56)
[2018-04-25] MEDS: Baclofen 10 MG Tablet PO SCH ×2 (05:57→15:40)
[2018-04-25 09:10] LABS: Calcium 8.3 mg/dL (8.5-10.1); Carbon Dioxide 29.6 meq/L (21.0-32.0); Potassium 4.2 meq/L (3.5-5.1)
[2018-04-25] MEDS: Nystatin Liq 500,000 UNIT/5 ML UDC SWISH-SWAL SCH ×2 (09:39→13:57)
[2018-04-25] MEDS: lamoTRIgine 100 MG Tablet PO SCH (09:39)
[2018-04-25] MEDS: Gabapentin 400 MG Capsule PO SCH ×2 (09:39→13:57)
[2018-04-25] MEDS: Famotidine 20 MG Tablet PO SCH (09:39)
[2018-04-25] MEDS: buPROPion 150 MG 12 HR Tablet PO SCH (09:39)
[2018-04-25] MEDS: LORazepam 0.5 MG Tablet PO PRN (09:40)
[2018-04-25] MEDS: Heparin - SQ 10,000 UNITS/ML Vial SQ SCH (09:40)
--- NOTE | 2018-04-25 09:51 | P.PN ---
Subjective Interval history: Follow-up for MS exacerbation, weakness, anxiety, possible psychosis. The patient reports her weakness has continued to slightly improved. She has been able to ambulate around her room. She reports continued anxiety, intermittent confusion, and paranoia. Denies any other new medical complaints. Physical Exam Vital signs: Vital Signs 04/24/18 11:04 04/24/18 12:00 04/24/18 15:42 Temperature Pulse Rate 97 H 89 Respiratory Rate 12 16 16 Blood Pressure 152/89 H 175/98 H Pulse Oximetry 99 98 04/24/18 16:56 04/24/18 17:05 04/24/18 19:46 Temperature 97.5 F L Pulse Rate 76 88 Respiratory Rate 16 12 20 Blood Pressure 163/95 H 157/95 H Pulse Oximetry 96 95 04/25/18 00:00 04/25/18 04:00 04/25/18 07:53 Temperature 98.2 F 98.6 F 98.6 F Pulse Rate 70 120 H 87 Respiratory Rate 20 18 20 Blood Pressure 142/80 H 156/89 H 123/69 Pulse Oximetry 96 94 L 100 Intake & Output 04/24/18 04/25/18 04/25/18 18:59 06:59 18:59 Intake Total / Output Total 750 / 750 Balance -542 / -542 Intake: IV SoluMEDROL Inj 250 MG In NS Inj 100 ML @ 104 mls/hr IV.SIG Q6H [facility] Rx#:[id number] Output: Urine Amount (Catheter) 750 / 750 Indwelling Urethral Catheter 750 / 750 Other: Date of Last Bowel Movement 04/24/18 Narrative: GENERAL: Well developed middle aged female patient in NAD, A&Ox3 SKIN: Warm and dry. No rash. HEENT: Normocephalic. No scleral icterus. No injection or drainage. MMM. CARDIOVASCULAR: Regular rate and rhythm without murmurs, gallops, or rubs. RESPIRATORY: Breath sounds equal bilaterally. No accessory muscle use. GASTROINTESTINAL: Abdomen soft, non-tender, nondistended. MUSCULOSKELETAL: No cyanosis, or edema. NEURO: Right-sided hemiplegia, improving. Right upper extremity 4/5. Right lower 3/5. Stands and ambulates room independently. PSYCH: Tearful, anxious, + paranoia - Urinary Catheter Management Indwelling Urethral Catheter Cath placed during this visit: yes Urethral indwelling: Yes Reason for continuing: Chronic Urinary Retention Insertion date: 04/17/18 Insertion time: 06:58 Results - Labs CBC & Chem 7: 04/24/18 04:27 04/25/18 08:26 Laboratory Results - last 24 hr 04/25/18 08:26 Sodium 138 Potassium 4.2 Chloride 103 Carbon Dioxide 29.6 Anion Gap 5 BUN 19 H Creatinine 1.00 Estimated GFR 73 L Random Glucose 152 H Calcium 8.3 L - Imaging Ankle X-Ray 04/17/18 05:35 CONCLUSION: Negative examination Femur X-Ray 04/17/18 05:35 CONCLUSION: Negative examination Knee X-Ray 04/17/18 05:35 CONCLUSION: Negative examination Pelvis X-Ray 04/17/18 05:35 CONCLUSION: Negative examination. Head CT 04/17/18 05:50 CONCLUSION: 1. Negative CT Head non contrast. . Assessment and Plan - Assessment (1) MS (multiple sclerosis) Code(s): G35 - Multiple sclerosis Status: Acute (2) Weakness Code(s): R53.1 - Weakness Status: Acute (3) Impaired mobility and activities of daily living Code(s): Z74.09 - Other reduced mobility Status: Acute (4) Anxiety Code(s): F41.9 - Anxiety disorder, unspecified Status: Acute (5) Acute pain Code(s): R52 - Pain, unspecified Status: Acute (6) Behavior disturbance Code(s): F91.9 - Conduct disorder, unspecified Status: Acute - Plan 42-year-old female admitted secondary to MS exacerbation with right hemiplegia MS exacerbation versus progression Vertigo; Right hemiplegia Neurology consulted; continue steroids with IV Solumedrol 250mg q6h. MRI studies on hold secondary to implanted bladder stimulator Physical therapy and rehab consults, likely needs rehab however unable to place at this time, continue to work with PT during hospitalization Steroids discontinued on 04/24, symptoms improving, requested repeat PT eval Chronic pain with acute exacerbation Increased tramadol dose; improved Intermittent anxiety with forgetfulness and paranoia Suspect acute psychosis, possibly steroid induced Hx of Bipolar Disorder Continue patient's wellbutrin Ativan as needed; needing increasing doses to control overwhelming anxiety Consult placed to neuropsychiatry for assistance, recommended psychiatry evaluation Discussed with Dr. Horan, patient with acute psychosis/dameon, recommends transfer to med/psych voluntarily Chronic incontinence Dysfunctional bladder stimulator Revision of bladder stimulator in process as an outpatient Freeman catheter placed Follow clinically Hypertension Dry eyes Gastroesophageal reflux disease Migraine headaches Seasonal allergies All chronic-no change to baseline treatments Follow these conditions clinically DVT Prophylaxis SCDs Discharge Planning: The patient is medically stable at this time, will transfer to med/psych per Dr. Horan recommendations. See discharge summary.
--- NOTE | 2018-04-25 11:52 | P.DS ---
Date of admission: 04/20/18 16:19 Primary care physician: Park Major MD Attending physician on discharge: Remington Jesus Anticipated date of discharge: 04/25/18 Brief History from admission: Mrs. Dean is a 42-year-old female. She came in secondary to right-sided weakness and recurrent falls. At baseline she has multiple sclerosis. At baseline she has urinary incontinence and moderate right hemiplegia. She will typically have good days and bad days in regards to her symptoms. At this point she is nearly flaccid in her right arm and leg and has found it impossible to ambulate. Vertigo and headaches are part of her symptoms today and she says this typically has onset after a deficit in the past but is common with an MS exacerbation for her. She has a bladder stimulator implanted in this prohibits her from being able to obtain MRI studies. Possibility of MRI of brain at [place] (will discuss with neurology prior to any transfer). Etiology for her symptoms is likely related to her multiple sclerosis. At baseline she is on Aubagio. 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 In the past she has never tried anything other than short course high-dose steroids. Once her present exacerbation is resolved, she may be a candidate for a slow steroid taper over 2-4 weeks and if she finds benefit from this she may benefit from chronic steroid use. Patient update on day of discharge: The patient reports her weakness is improving. She has been able to slowly ambulate around her room and out to the nurses station. Still with some mild weakness of the right leg mostly. She is concerned about her anxiety. She states she feels like she continues to have conversations with people however later realizes the conversations never happened. She has talked with Dr. Horan, and agrees to transfer to psychiatric unit for further evaluation and treatment. DS: Diagnosis - Discharge Diagnosis (1) MS (multiple sclerosis) Status: Acute (2) Weakness Status: Acute (3) Impaired mobility and activities of daily living Status: Acute (4) Anxiety Status: Acute (5) Acute pain Status: Acute (6) Behavior disturbance Status: Acute (7) Psychosis Status: Acute DS: Summary Hospital Course: 42-year-old female admitted secondary to MS exacerbation with right hemiplegia MS exacerbation versus progression, with complaints of Vertigo; Right hemiplegia , Pain Exacerbation. Neurology consulted; given steroids with IV Solumedrol 250mg q6h. Given Tramadol for pain, improved. MRI studies on hold secondary to implanted bladder stimulator. Physical therapy and rehab consults, likely needs rehab however unable to place at this time, continue to work with PT during hospitalization as her symptoms have been improving. Steroids discontinued on , symptoms improving, requested repeat PT eval, can be done in med/psych unit. Suspect acute psychosis, possibly steroid induced; Intermittent anxiety with forgetfulness and paranoia; Hx of Bipolar Disorder. Continue patient's wellbutrin. Ativan as needed; needing increasing doses to control overwhelming anxiety. Consult placed to neuropsychiatry for assistance, recommended psychiatry evaluation. Discussed with Dr. Horan, patient with acute psychosis/dameon, recommends transfer to med/psych voluntarily. Chronic incontinence. Dysfunctional bladder stimulator. Revision of bladder stimulator in process as an outpatient. Freeman catheter placed. Follow clinically. - Time Spent with Patient Total time spent providing and/or coordinating discharge services: Greater than 30 minutes - Quality: VTE Deep Vein Thrombosis/Pulmonary Embolism Present on Admission: No Exam Vital signs: Vital Signs 04/24/18 12:00 04/24/18 15:42 04/24/18 16:56 Temperature Pulse Rate 97 H 89 76 Respiratory Rate 16 16 16 Blood Pressure 152/89 H 175/98 H 163/95 H Pulse Oximetry 99 98 96 04/24/18 17:05 04/24/18 19:46 04/25/18 00:00 Temperature 97.5 F L 98.2 F Pulse Rate 88 70 Respiratory Rate 12 20 20 Blood Pressure 157/95 H 142/80 H Pulse Oximetry 95 96 04/25/18 04:00 04/25/18 07:53 04/25/18 11:16 Temperature 98.6 F 98.6 F 98.6 F Pulse Rate 120 H 87 114 H Respiratory Rate 18 20 20 Blood Pressure 156/89 H 123/69 151/83 H Pulse Oximetry 94 L 100 96 Intake & Output 04/24/18 04/25/18 04/25/18 18:59 06:59 18:59 Intake Total / Output Total 750 / 750 Balance -542 / -542 Intake: IV SoluMEDROL Inj 250 MG In NS Inj 100 ML @ 104 mls/hr IV.SIG Q6H [facility] Rx#:[id number] Output: Urine Amount (Catheter) 750 / 750 Indwelling Urethral Catheter 750 / 750 Other: Date of Last Bowel Movement 04/24/18 Results Procedures completed during hospitalization: None. Labs on day of discharge: Labs from last 24 hours 04/25/18 08:26 Sodium 138 Potassium 4.2 Chloride 103 Carbon Dioxide 29.6 Anion Gap 5 BUN 19 H Creatinine 1.00 Estimated GFR 73 L Random Glucose 152 H Calcium 8.3 L - Impressions ITS Impressions Ankle X-Ray 04/17/18 05:35 CONCLUSION: Negative examination Femur X-Ray 04/17/18 05:35 CONCLUSION: Negative examination Knee X-Ray 04/17/18 05:35 CONCLUSION: Negative examination Pelvis X-Ray 04/17/18 05:35 CONCLUSION: Negative examination. Head CT 04/17/18 05:50 CONCLUSION: 1. Negative CT Head non contrast. . Discharge Plan - Discharge Disposition Patient Disposition: 64 Disc To Psych Care Facility - Discharge Condition Condition: Stable - Discharge Order Discharge Orders: Discharge Order (Routine); Ordered 04/25/18 Ordered By: Trupti Quiros - Discharge Details Anticipated Discharge Date: 04/25/18 Discharge Comment: Transfer to med/psych unit. - Physicians Team Primary Care Provider: Park Major Attending Provider: Remington Jesus Other Providers: Alejo Roberto MD, PhD ; Linda Roth MD ; [employer] ; Freddie Echols, PhD ; Matt Horan MD
[2018-04-25] MEDS ORDERED: buPROPion 150 MG 12 HR Tablet PO SCH (12:24)
--- NOTE | 2018-04-25 12:52 | P.CONPSY ---
Provisional Diagnosis Admission Date: April 20, 2018 16:19 Tobias I.: Unspecified psychosis, rule out medical induced psychosis, rule out bipolar disorder, manic episode with psychotic features, History of Present Illness Service: Medicne Primary Care Provider: Park Major MD Chief Complaint: Weakness and Falls from MS Exacerbation History of Present Illness: The patient is a 42-year-old [facility] woman, domiciled with her mother and 3 kids in [place], single, unemployed at the moment, with a psychiatric history of bipolar disorder, anxiety, but no previous psychiatric hospitalizations, no previous suicide attempts, no history of self cutting behavior, outpatient care in [facility], she is on lamotrigine 400 mg , Wellbutrin 150 mg twice daily with good results, medical history hypertension and multiple sclerosis, who came to the hospital with right-sided weakness and recurrent falls. At baseline she has urinary incontinence and moderate right hemiplegia. Vertigo and headaches are part of her symptoms today and she says this typically has onset after a deficit in the past but is common with an MS exacerbation for her. She has a bladder stimulator implanted in this prohibits her from being able to obtain MRI studies. Possibility of MRI of brain at [place] (will discuss with neurology prior to any transfer). Etiology for her symptoms is likely related to her multiple sclerosis. She was seen by neurology who diagnosed MS exacerbation, was treated with methylprednisolone 250 mg every 6 hours and the patient showed good response and symptoms improve. However for the last 3 days the patient has developed new onset psychosis, with a significant paranoia, disorganized and pressured speech, auditory hallucinations, poor sleep, anxiety and mood lability. The patient got so paranoid that 2 days ago she left the hospital AMA. Family members are very concerned that the patient is very far from baseline, acting very bizarre, and at times not making any sense. Chart was reviewed. I got collateral information from her account Bernadette and also from her mother. They clarified that the patient is acting extremely bizarre, this is out of character for her, they did not feel that she is safe to be discharged. They said that she has 3 kids, one is 15, 16, 1 8 at home and the patient has been paranoid, stating that nurses wanted to kill her, that the TV is talking to her, that she is hearing people talking about her and seeing things and people that do not exist. They clarified that the patient has bipolar disorder, that she has been quite depressed in the past, and also very anxious, but never psychotic like this. On my psychiatric evaluation I find a patient that initially is calm, cooperative and pleasant. She says that she is feeling much better today. She tells me that the reason she is hospitalized is due to multiple sclerosis exacerbation, "I am feeling better and stronger". She initially reports to be in a good mood, positive, hopeful and motivated to continue medical treatment and get better. However, when I asked the patient if she feels safe here the patient breaks in tears, become extremely labile, incoherent, and start making accusation to the nurses and to the doctor stating that "because they cannot see what I think, they cannot understand my illness, and they prefer to talk about me and destroyed my reputation of my family reputation". Patient start crying profusely and yelling that she wants to go home. However, she was sensitive to verbal redirection and I was able to bring her back to the reality. She then started laughing quite inappropriately stating that "the problem is that I cannot concentrate in the jokes that you are making me". The patient seems to be insightful about her psychosis, she states that she knows that something is wrong with her and she does not want to continue having mental problems and is willing to be admitted in psychiatry and be treated. The patient is fully oriented x3, I cannot perceive any attention deficit, any fluctuation of consciousness at this moment. Patient reports that she is very anxious, and is sleeping very poorly at night. PPHx: psychiatric history of bipolar disorder, anxiety, but no previous psychiatric hospitalizations, no previous suicide attempts, no history of self cutting behavior, outpatient care in [facility], she is on lamotrigine 400 mg, Wellbutrin 150 mg twice daily with good results PMHx: medical history hypertension and multiple sclerosis, who came to the hospital with right-sided weakness and recurrent falls Substance Hx: Patient denies that use of illegal drugs Family Hx: No family psychiatric history Social Hx: The patient was born and raised in [place], living in the [facility] for about 30 years. She lives now with her mother and 3 kids, 50-year- old, 8-year-old, 16-year-old. She is single. Unemployed at the moment. Supported by her family. [employer]. Her highest level of education is a bachelor degree in communications. Review of Systems All other systems reviewed negative except as stated in HPI Neurologic: Reports localized weakness, Reports sensory deficit Psychiatric: Reports behavioral changes, Reports hopelessness, Reports irritability, Reports mood swings, Reports paranoia, Reports seeing things others do not see, Reports sensing things others do not sense, Reports thoughts of hurting/killing yourself [facility] - History History Provided By: Patient, Boring Inspector / EMT - Medical History Medical History: Medical History (Last Reviewed 04/25/18 @ 09:02 by Chacha Will) Chronic pain Depression Dry eyes GERD (gastroesophageal reflux disease) Hypertension Migraine Multiple sclerosis Seasonal allergies Urinary dysfunction Vertigo - Surgical History Surgical History: Surgical History (Last Reviewed 04/25/18 @ 09:02 by Chacha Will) H/O section History of cholecystectomy Hx of breast biopsy Hx of tonsillectomy - Family History Family History: Family History (Last Reviewed 04/25/18 @ 09:02 by Chacha Will) Other Osteoarthritis - Tobacco History Second Hand Smoke Exposure: No Smoking Status: Never smoker - Alcohol History How Often Do You Have a Drink Containing Alcohol: Never - Substance Use History Substance History: No History of Abuse - Travel History Recent Travel in the [place] Within the Last 8 Weeks: No Recent Travel Out of the Country Within the Last 8 Weeks: No - Immunization History Tetanus Immunization: >5 Years Medications and Allergies Active Medications: Active Medications Acetaminophen (Tylenol) 650 mg PO Q4H PRN PRN Reason: Temp > 100.4 Last Admin: 04/22/18 12:39 Dose: 650 mg Al Hydroxide/Mg Hydroxide (Milk Of Magnjackie Liq) 30 ml PO Q12H PRN PRN Reason: Mild Constipation Amlodipine Besylate (Norvasc) 5 mg PO HS RUT Last Admin: 04/24/18 21:56 Dose: 5 mg Aripiprazole (Abilify) 5 mg PO DAILY RUT Baclofen (Lioresal) 10 mg PO Q8HR RUT Last Admin: 04/25/18 05:57 Dose: 10 mg Bupropion HCl (Wellbutrin Sr) 75 mg PO BID RUT Clonidine HCl (Catapres) 0.1 mg PO Q6H PRN PRN Reason: SBP> OR = 180, DBP> OR = 100 Cyclobenzaprine HCl (Flexeril) 5 mg PO TID PRN PRN Reason: SPASM Last Admin: 04/24/18 13:34 Dose: 5 mg Famotidine (Pepcid) 20 mg PO BID [facility] Last Admin: 04/25/18 09:39 Dose: 20 mg Fluticasone Propionate (Flonase Nasal [place]) 1 spray EACH NARE DAILY [facility] Last Admin: 04/25/18 09:40 Dose: 1 spray Gabapentin (Neurontin) 800 mg PO TID [facility] Last Admin: 04/25/18 09:39 Dose: 800 mg Heparin Sodium (Porcine) (Heparin Inj) 5,000 units SQ Q12HR [facility] Last Admin: 04/25/18 09:40 Dose: 5,000 units Lamotrigine (Lamictal) 200 mg PO BID [facility] Last Admin: 04/25/18 09:39 Dose: 200 mg Lorazepam (Ativan) 1 mg PO Q6H PRN PRN Reason: ANXIETY AND/OR AGITATION Last Admin: 04/25/18 09:40 Dose: 1 mg Meclizine HCl (Antivert) 25 mg PO QID PRN PRN Reason: VERTIGO Last Admin: 04/23/18 21:54 Dose: 25 mg Miscellaneous (Pill Splitter) 1 each OTHER UNSCH [facility] Last Admin: 04/19/18 18:33 Dose: 1 each Montelukast Sodium (Singulair) 10 mg PO QPM [facility] Last Admin: 04/24/18 17:31 Dose: Not Given Naloxone HCl (Narcan Inj) 0.4 mg IV.PUSH UNSCH PRN PRN Reason: SEE LABEL COMMENTS Nystatin (Mycostatin Liq) 5 ml SWISH-SWAL QID [facility] Last Admin: 04/25/18 09:39 Dose: 5 ml Ondansetron HCl (Zofran Inj) 4 mg IV.PUSH Q6H PRN PRN Reason: NAUSEA OR VOMITING Last Admin: 04/23/18 21:54 Dose: 4 mg Pantoprazole Sodium (Protonix) 40 mg PO DAILY [facility] Last Admin: 04/25/18 09:39 Dose: 40 mg Paroxetine HCl (Paxil) 10 mg PO DAILY [facility] Pt Own Med ( Cyclosporine [ Restasis] 1 Drp) 0 each EACH EYE Q12H [facility] Pt Own Med:( Mometasone- Formoterol [Dulera] 2 Puff) 0 each INH Q12H [facility] Pt Own Med : ( Teriflunomide [ Aubagio] 14 Mg) 0 each PO DAILY [facility] Prazosin HCl (Minipress) 1 mg PO HS [facility] Last Admin: 04/24/18 21:55 Dose: 1 mg Sodium Chloride (Ns Flush) 2 ml IV.FLUSH PRN PRN PRN Reason: FLUSH AFTER USING IV ACCESS Sodium Chloride (Ns Flush) 2 ml IV.FLUSH BID [facility] Last Admin: 04/25/18 09:39 Dose: 2 ml Sucralfate (Carafate) 1 gm PO TID PRN PRN Reason: gerd Sumatriptan Succinate (Imitrex 20 Mg Nasal [place]) 1 spray ONE NARE DAILY PRN PRN Reason: migraines Last Admin: 04/23/18 18:43 Dose: 1 spray Tramadol HCl (Ultram) 50 mg PO Q6H PRN PRN Reason: PAIN 1-5 Last Admin: 04/19/18 08:08 Dose: 50 mg Tramadol HCl (Ultram) 100 mg PO Q4H PRN PRN Reason: PAIN SCALE 6 TO 10 Last Admin: 04/24/18 09:15 Dose: 100 mg Trazodone HCl (Desyrel) 150 mg PO HS PRN PRN Reason: SLEEP Last Admin: 04/23/18 23:31 Dose: 150 mg Vitamin D (Vitamin D3) 5,000 unit PO DAILY [facility] Last Admin: 04/25/18 09:39 Dose: 5,000 unit Allergies Allergy/AdvReac Type Severity Reaction Status Date / Time oxycodone Allergy Intermediate RASH Verified 04/17/18 05:00 Home Medications Medication Instructions Recorded Confirmed Type amlodipine 5 mg PO HS 04/12/18 04/17/18 History cholecalciferol (vitamin D3) 5,000 unit PO DAILY 04/12/18 04/17/18 History [Vitamin D3] cyclobenzaprine 5 mg PO TID PRN 04/12/18 04/17/18 History cyclosporine [Restasis] 1 drp OPHTHALMIC (EYE) Q12H 04/12/18 04/17/18 History fluticasone [Allergy Relief 1 spray INTRANASAL DAILY 04/12/18 04/17/18 History (fluticasone)] gabapentin 800 mg PO TID 04/12/18 04/17/18 History lamotrigine 200 mg PO BID 04/12/18 04/17/18 History meclizine 25 mg PO QID PRN 04/12/18 04/17/18 History mometasone-formoterol [Dulera] 2 puff INHALATION Q12H 04/12/18 04/17/18 History montelukast 10 mg PO QPM 04/12/18 04/17/18 History pantoprazole 40 mg PO DAILY 04/12/18 04/17/18 History prazosin 1 mg PO HS 04/12/18 04/17/18 History ranitidine HCl 150 mg PO BID 04/12/18 04/17/18 History sucralfate [Carafate] 1 g PO TID PRN 04/12/18 04/17/18 History sumatriptan 20 mg INTRANASAL DAILY PRN 04/12/18 04/17/18 History teriflunomide [Aubagio] 14 mg PO DAILY 04/12/18 04/17/18 History tramadol 50 mg PO Q6H PRN 04/12/18 04/17/18 History trazodone 150 mg PO HS PRN 04/12/18 04/17/18 History Exam Vital signs: Vital Signs 04/24/18 15:42 04/24/18 16:56 04/24/18 17:05 Temperature Pulse Rate 89 76 Respiratory Rate 16 16 12 Blood Pressure 175/98 H 163/95 H Pulse Oximetry 98 96 04/24/18 19:46 04/25/18 00:00 04/25/18 04:00 Temperature 97.5 F L 98.2 F 98.6 F Pulse Rate 88 70 120 H Respiratory Rate 20 20 18 Blood Pressure 157/95 H 142/80 H 156/89 H Pulse Oximetry 95 96 94 L 04/25/18 07:53 04/25/18 11:16 Temperature 98.6 F 98.6 F Pulse Rate 87 114 H Respiratory Rate 20 20 Blood Pressure 123/69 151/83 H Pulse Oximetry 100 96 Intake & Output 04/24/18 04/25/18 04/25/18 18:59 06:59 18:59 Intake Total 208 / 208 Output Total 750 / 750 Balance -542 / -542 Intake: IV / 208 SoluMEDROL Inj 250 MG In NS Inj 208 / 208 100 ML @ 104 mls/hr IV.SIG Q6H [facility] Rx#:[id number] Output: Urine Amount (Catheter) 750 / 750 Indwelling Urethral Catheter 750 / 750 Other: Date of Last Bowel Movement 04/24/18 Narrative: No tremors, no EPS, no stiffness, no psychomotor agitation or retardation, no catatonia - Constitutional moderate distress - Routine HEENT Exam Head: Present: normocephalic, atraumatic Eye: Present: EOMI, PERRL ENT: Present: mucous membranes moist Mental Status Examination Appearance: Appropriate Consciousness: Alert Orientation: x4 Motor Activity: Normal gait Speech: Unremarkable Language: Adequate Fund of Knowledge: Adequate Attention and Concentration: Adequate Memory: Unremarkable Mood: Sad, Irritable Affect: Labile Thought Process & Associations: Loose associations, Disorganized Thought Content: Bizarre thinking, Racing thoughts, Preoccupations, Delusional Hallucination Type: Auditory, Visual Delusion Type: Bizarre, Paranoid Suicidal Ideation: No Suicidal Plan: No Suicidal Intention: No Homicidal Ideation: No Homicidal Plan: No Homicidal Intention: No Insight: Poor Judgment: Poor Assessment and Plan - Assessment (1) Unspecified psychosis Code(s): F29 - Unspecified psychosis not due to a substance or known physiological condition Status: Acute (2) Unspecified psychosis Code(s): F29 - Unspecified psychosis not due to a substance or known physiological condition Status: Acute - Plan Plan: On my psychiatric evaluation I find a patient that initially presents quite calm , cooperative, pleasant, but as the interview progressed she shoes episodic disorganization, pressured speech, paranoia, mood lability and a significant detachment from the reality. As per mother, round, primary medical team, in the last 2 days the patient has been increasingly psychotic, with moments of agitation, visual and auditory hallucinations, increased paranoia in which the patient has been accusing family and nursing of been hurting her, talking about her, watching her. At some point due to her paranoia, the patient left AMA the hospital when she was still in treatment. This is a patient with a psychiatric history of bipolar disorder, anxiety, but no previous psychiatric hospitalizations, no previous suicide attempts and she has been stable in outpatient care and Wellbutrin 150 mg twice daily and Lamictal 200 mg daily. The patient was initially admitted under observation to medicine due to multiple sclerosis exacerbation and she was a started in methylprednisolone 250 mg every 6 hours. Psychotic symptoms started about 5 days after beginning steroids therapy. Current psychiatric symptoms seems to be secondary to steroid therapy, but also a bipolar disorder exacerbation needs to be carefully ruled out. His steroids has been discontinued now. Family members are very concerned about the safety of the patient and her kids if she is discharged. Patient has an elevated risk of danger to self and others and also self neglecting herself. She is insightful enough to understand the importance of a psychiatric admission, she will be admitted voluntarily in psychiatry for stabilization and safety. I will start Abilify 5 mg daily for her psychosis. Continue her lamotrigine 200 mg twice daily. I will taper down the Wellbutrin to 75 mg daily with the goal of discontinuing this medication and starting a better medication for anxiety, will start Paxil 10 mg daily. Also will order clonazepam 0.5 mg twice daily for her anxiety. Extensive support, motivational psychoeducation provided. Patient is a good candidate for the MedPsych unit. Justification for Continued Inpatient Stay: To be admitted in psychiatry.
[2018-04-25] MEDS ORDERED: ARIPiprazole 5 MG Tablet PO SCH (13:30)
== END 2018-04-25 16:39 ==
LOC: NEPE 04:46 → NEDA 04:46 → NEPHCDU 11:44
PROVIDERS: ADMIT Internal Medicine; ATTEND Internal Medicine
DX: R41.3 Other amnesia; Z74.09 Other reduced mobility; G81.91 Hemiplegia, unspecified affecting right dominant side; G89.29 Other chronic pain; R32 Unspecified urinary incontinence; I10 Essential (primary) hypertension; T38.0X5A Adverse effect of glucocorticoids and synthetic analogues, initial encounter; Z79.51 Long term (current) use of inhaled steroids; Z88.5 Allergy status to narcotic agent; K21.9 Gastro-esophageal reflux disease without esophagitis; J30.2 Other seasonal allergic rhinitis; R33.9 Retention of urine, unspecified; F31.9 Bipolar disorder, unspecified; G43.909 Migraine, unspecified, not intractable, without status migrainosus; Z68.30 Body mass index [BMI] 30.0-30.9, adult; R42 Dizziness and giddiness; B37.0 Candidal stomatitis; Z90.49 Acquired absence of other specified parts of digestive tract; F23 Brief psychotic disorder; E66.9 Obesity, unspecified; M79.604 Pain in right leg; F41.9 Anxiety disorder, unspecified; H04.123 Dry eye syndrome of bilateral lacrimal glands; Z91.81 History of falling; F91.9 Conduct disorder, unspecified; G35 Multiple sclerosis

== ENCOUNTER 2018-04-25 16:20 | Inpatient (IN) ==
[2018-04-25] MEDS ORDERED: Bisacodyl 10 MG Supp RECTAL PRN (17:35)
[2018-04-25] MEDS ORDERED: Aluminum/Magnesium/Simethacone Susp 30 ML UDC PO PRN (17:35)
[2018-04-25] MEDS: Senna/Docusate Sodium 8.6/50 MG Tablet PO SCH (21:49)
[2018-04-25] MEDS: amLODIPine 5 MG Tablet PO SCH (21:49)
--- NOTE | 2018-04-26 08:33 | P.CON ---
History of Present Illness Service: [facility] Consult date: 04/26/18 Requesting Physician: Matt Horan Reason for Consult: AMS,MS, urinary incontinence Primary Care Provider: UNKNOWN Chief Complaint: "I got sick" History of Present Illness: 42-year-old AA female with past medical history significant for MS, migraines, urinary dysfunction, HTN, GERD, chronic pain, depression and vertigo who presented to the emergency department on 04/17 due to right-sided weakness and recurrent falls. Head CT completed in the emergency department was negative. Additional imaging including pelvis x-ray, right knee, femur and ankle x-ray all negative. Patient was unable to have MRI due to implanted bladder stimulator. She was seen and evaluated by neurology services and was treated with IV Solu-Medrol as well as started on baclofen for spasms. [facility] during her hospitalization. Patient also had Freeman catheter inserted due to bladder dysfunction. She was seen and evaluated by psychiatry due to suspected psychosis possibly steroid-induced. She was admitted to medical psychiatry on a voluntary basis. [facility] now consulted to assist with ongoing medical management. Patient is seen and examined sitting up in bed in no acute distress. She reports that she "just got sick" and that is how she ended up in the hospital. She reports that she has been trying to move her right lower extremity more, she demonstrates this to me and then becomes tearful. She tells me that she is emotional when she sees other people seeing her progress. Patient does complain of a migraine headache, dizziness as well as nausea. She reports that she takes sumatriptan for her migraines and meclizine for dizziness, requesting Zofran for nausea. Denies any fevers, chills, cough, shortness of breath or chest pain. Review of Systems All other systems reviewed negative except as stated in HPI PMFSH - History History Provided By: Patient, Certified Juvenile Probation Officer / EMT - Medical History Medical History: Medical History (Last Reviewed 04/26/18 @ 15:59 by Jose Thompson) Chronic pain Depression Dry eyes GERD (gastroesophageal reflux disease) Hypertension Migraine Multiple sclerosis Seasonal allergies Urinary dysfunction Vertigo - Surgical History Surgical History: Surgical History (Last Reviewed 04/26/18 @ 15:59 by Jose Thompson) H/O section History of cholecystectomy Hx of breast biopsy Hx of tonsillectomy - Family History Family History: Family History (Last Reviewed 04/26/18 @ 15:59 by Jose Thompson) Other Osteoarthritis - Social History I have reviewed the patient's Social History: Yes - Tobacco History Second Hand Smoke Exposure: No Tobacco Use In Past 30 Days: No Smoking Status: Never smoker - Alcohol History How Often Do You Have a Drink Containing Alcohol: Never - Substance Use History Substance History: No History of Abuse - Travel History Recent Travel in the [place] Within the Last 8 Weeks: No Recent Travel Out of the Country Within the Last 8 Weeks: No - Immunization History Tetanus Immunization: Unsure Hx Influenza Vaccine This Season: Unable to Assess Medications and Allergies Active Medications: Active Medications Al Hydrox/Mg Hydrox/Simethicone (Mag-Al Plus Susp Liq) 30 ml PO Q6H PRN PRN Reason: DYSPEPSIA Al Hydroxide/Mg Hydroxide (Milk Of Magnesia Liq) 30 ml PO Q12H PRN PRN Reason: Mild Constipation Amlodipine Besylate (Norvasc) 5 mg PO HS [facility] Last Admin: 04/25/18 21:49 Dose: Not Given Aripiprazole (Abilify) 5 mg PO DAILY RUT Baclofen (Lioresal) 10 mg PO Q8HR PRN PRN Reason: muscle spasms Bisacodyl (Dulcolax Supp) 10 mg RECTAL DAILY PRN PRN Reason: SEVERE CONSITIPATION Bupropion HCl (Wellbutrin Sr) 75 mg PO BID RUT Cyclobenzaprine HCl (Flexeril) 5 mg PO TID PRN PRN Reason: SPASM Gabapentin (Neurontin) 800 mg PO TID RUT Lactulose (Lactulose Liq) 30 ml PO DAILY PRN PRN Reason: SEVERE CONSITIPATION Non-Formulary Medication (Lamotrigine [Lamotrigine]) 200 mg PO BID RUT Non-Formulary Medication (Trazodone [Trazodone]) 150 mg PO HS PRN PRN Reason: Sleep Paroxetine HCl (Paxil) 10 mg PO DAILY [facility] Senna/Docusate Sodium (Heike-Colace) 1 tab PO BID [facility] Last Admin: 04/25/18 21:49 Dose: Not Given Sennosides (Senokot) 17.2 mg PO Q12H PRN PRN Reason: Moderate Constipation Allergies Allergy/AdvReac Type Severity Reaction Status Date / Time oxycodone Allergy Intermediate RASH Verified 04/17/18 05:00 Home Medications Medication Instructions Recorded Confirmed Type amlodipine 5 mg PO HS 04/12/18 04/17/18 History cholecalciferol (vitamin D3) 5,000 unit PO DAILY 04/12/18 04/17/18 History [Vitamin D3] cyclobenzaprine 5 mg PO TID PRN 04/12/18 04/17/18 History cyclosporine [Restasis] 1 drp OPHTHALMIC (EYE) Q12H 04/12/18 04/17/18 History fluticasone [Allergy Relief 1 spray INTRANASAL DAILY 04/12/18 04/17/18 History (fluticasone)] gabapentin 800 mg PO TID 04/12/18 04/17/18 History lamotrigine 200 mg PO BID 04/12/18 04/17/18 History meclizine 25 mg PO QID PRN 04/12/18 04/17/18 History mometasone-formoterol [Dulera] 2 puff INHALATION Q12H 04/12/18 04/17/18 History montelukast 10 mg PO QPM 04/12/18 04/17/18 History pantoprazole 40 mg PO DAILY 04/12/18 04/17/18 History prazosin 1 mg PO HS 04/12/18 04/17/18 History ranitidine HCl 150 mg PO BID 04/12/18 04/17/18 History sucralfate [Carafate] 1 g PO TID PRN 04/12/18 04/17/18 History sumatriptan 20 mg INTRANASAL DAILY PRN 04/12/18 04/17/18 History teriflunomide [Aubagio] 14 mg PO DAILY 04/12/18 04/17/18 History tramadol 50 mg PO Q6H PRN 04/12/18 04/17/18 History trazodone 150 mg PO HS PRN 04/12/18 04/17/18 History Physical Exam Vital signs: Vital Signs 04/25/18 17:30 04/26/18 06:00 Temperature 98.2 F 97.8 F Pulse Rate 107 H 88 Respiratory Rate 18 15 Blood Pressure 159/83 H 121/69 Pulse Oximetry 97 Intake & Output 04/25/18 04/26/18 04/26/18 18:59 06:59 18:59 Weight 100.8 kg Other: Weight On Admission 100.8 kg Narrative: GENERAL: Well-developed, obese AA female sitting up in bed in no acute distress. SKIN: Warm and dry. HEAD: Atraumatic. Normocephalic. EYES: Pupils equal and round. No scleral icterus. No injection or drainage. ENT: No nasal bleeding or discharge. Mucous membranes pink and moist. NECK: Trachea midline. CARDIOVASCULAR: Regular rate and rhythm. RESPIRATORY: No accessory muscle use. Clear to auscultation. Breath sounds equal bilaterally. GASTROINTESTINAL: Abdomen soft, non-tender, nondistended. + Bowel sounds MUSCULOSKELETAL: Extremities without clubbing, cyanosis, or edema. No obvious deformities. NEUROLOGICAL: Awake, alert, oriented x3. No obvious cranial nerve deficits. LUE & LLE 5/5, RUE 4/5, RLE 3/5. Normal speech. PSYCHIATRIC: Emotional and tearful - Urinary Catheter Management Indwelling Urethral Catheter Cath placed during this visit: no Reason for continuing: Other continuation reason Results - Labs CBC & Chem 7: 04/26/18 07:58 Assessment and Plan - Plan 42-year-old AA female with past medical history significant for MS, migraines, urinary dysfunction, HTN, GERD, chronic pain, depression and vertigo who presented to the emergency department on 04/17 due to right-sided weakness and recurrent falls. Head CT completed in the emergency department was negative. Additional imaging including pelvis x-ray, right knee, femur and ankle x-ray all negative. Patient was unable to have MRI due to implanted bladder stimulator. She was seen and evaluated by neurology services and was treated with IV Solu-Medrol as well as started on baclofen for spasms. [facility] evaluated patient during her hospitalization. Patient also had Freeman catheter inserted due to bladder dysfunction. She was seen and evaluated by psychiatry due to suspected psychosis possibly steroid-induced. She was admitted to medical psychiatry on a voluntary basis. [facility] now consulted to assist with ongoing medical management. MS exacerbation versus progression Vertigo; Right hemiplegia Neurology consulted; treated with IV steroids with improvement, OH 04/24. Head CT negative MRI studies on hold secondary to implanted bladder stimulator Physical therapy and rehab consults, likely needs rehab however unable to place at this time, continue to work with PT during hospitalization PT to continue following Chronic pain with acute exacerbation Continue Tramadol PRN Intermittent anxiety with forgetfulness and paranoia Suspect acute psychosis, possibly steroid induced Hx of Bipolar Disorder Patient admitted to medical psychiatry unit for further evaluation Chronic incontinence Dysfunctional bladder stimulator Revision of bladder stimulator in process as an outpatient Freeman catheter placed Follow clinically Hypertension Dry eyes Gastroesophageal reflux disease Migraine headaches Seasonal allergies All chronic-no change to baseline treatments Follow these conditions clinically DVT Prophylaxis-ambulation Thank you Dr. Horan for this consultation. We will continue to follow along. Discussed Condition With: Patient and RN
[2018-04-26] MEDS ORDERED: Sucralfate 1 GM Tablet PO PRN (08:34)
[2018-04-26] MEDS ORDERED: SUMATRIPTAN SUCCINATE EACH NARE PRN (08:34)
[2018-04-26 08:46] LABS: Calcium 7.9 mg/dL (8.5-10.1); Carbon Dioxide 32.7 meq/L (21.0-32.0); Potassium 3.7 meq/L (3.5-5.1)
[2018-04-26 08:49] LABS: Chol/HDL Ratio 2.86 Ratio; HDL Cholesterol 84.2 mg/dL (40.0-60.0)
[2018-04-26] MEDS ORDERED: Famotidine 20 MG Tablet PO SCH (09:15)
[2018-04-26] MEDS ORDERED: MOMETASONE INH SCH (10:30)
[2018-04-26] MEDS ORDERED: FORMOTEROL INH SCH (10:30)
[2018-04-26] MEDS ORDERED: CYCLOSPORINE EACH EYE SCH (10:30)
[2018-04-26] MEDS ORDERED: TERIFLUNOMIDE 14 MG PO SCH (11:00)
--- NOTE | 2018-04-26 11:28 | P.HPPSY ---
Provisional Diagnosis Admission Date: April 25, 2018 16:43 [place] I.: Unspecified psychosis, r/o steroid induced psychosis, hx of bipolar disorder Competence Certification of Person's Competence To Provide Express and Informed Consent I have personally examined Mele Dean, a person being served at [facility] on, April 26, 2018 1127. Express and informed consent means consent voluntarily given in writing, by a competent person, after sufficient explanation and disclosure of the subject matter involved to enable the person to make a knowing and willful decision without any element of force, fraud, deceit, duress, or other form of constraint or coercion. This person is 18 years of age or older, is not now known to be incompetent to consent to treatment with a guardian advocate, and does not have a health care surrogate or proxy currently making medical treatment decisions. I have found this person to be one of the following: [xxx] Competent to provide express and informed consent, as defined above, for voluntary admission to this facility and is competent to provide express and informed consent for treatment. He/she has the consistent capacity to make well reasoned, willful, and knowing decisions concerning his or her medical or mental health treatment. The person fully and consistently understands the purpose of the admission for examination/placement and is fully capable of personally exercising all rights assured under [place] [] Incompetent to provide express and informed consent to voluntary admission, and this is incompetent to provide express and informed consent to treatment. The person must be transferred to involuntary status and a petition for a guardian advocate filed with the Circuit Court. [] Refusing to provide express and informed consent to voluntary admission but is competent to provide express and informed consent for treatment. The person must be discharged or transferred to involuntary status. Form shall be completed within 24 hours of a person's arrival at the receiving facility and filed in the clinical record of each person: 1. Admitted on a voluntary basis 2. Permitted to provide express and informed consent to his/her own treatment 3. Allowed to transfer from involuntary to voluntary status 4. Prior to permitting a person to consent to his or her own treatment after having been previously found incompetent to consent to treatment. History of Present Illness Capacity: Has capacity - Inpatient Certification I certify that the inpatient services were ordered in accordance with Medicare regulations governing the order. This includes certification that hospital inpatient services are reasonable and necessary and in the case of services not specified as inpatient-only under 42 CFR 419.22(n), that they are appropriately provided as inpatient services in accordance to with the 2-midnight benchmark under 43 CFR 412.3(e) I certify that inpatient psychiatric hospital services are medically necessary. Evaluation and treatment and/or diagnostic testing are expected to improve the patient's condition. The patient needs on a daily basis, active treatment furnished directly by or requiring the supervision of inpatient psychiatric facility personnel. Estimated Total Length of Stay (Days): 7 Plans for Post Hospital Care: Home PMFSH - History History Provided By: Patient, Civil Process Server / EMT - Medical History Medical History: Medical History (Last Reviewed 04/25/18 @ 14:36 by Chacha Will) Chronic pain Depression Dry eyes GERD (gastroesophageal reflux disease) Hypertension Migraine Multiple sclerosis Seasonal allergies Urinary dysfunction Vertigo - Surgical History Surgical History: Surgical History (Last Reviewed 04/25/18 @ 14:36 by Chacha Will) H/O section History of cholecystectomy Hx of breast biopsy Hx of tonsillectomy - Family History Family History: Family History (Last Reviewed 04/25/18 @ 14:36 by Chacha Will) Other Osteoarthritis - Tobacco History Second Hand Smoke Exposure: No Tobacco Use In Past 30 Days: No Smoking Status: Never smoker - Alcohol History How Often Do You Have a Drink Containing Alcohol: Never - Substance Use History Substance History: No History of Abuse - Travel History Recent Travel in the [place] Within the Last 8 Weeks: No Recent Travel Out of the Country Within the Last 8 Weeks: No - Immunization History Tetanus Immunization: Unsure Hx Influenza Vaccine This Season: Unable to Assess Medications and Allergies Active Medications: Active Medications Al Hydrox/Mg Hydrox/Simethicone (Mag-Al Plus Susp Liq) 30 ml PO Q6H PRN PRN Reason: DYSPEPSIA Al Hydroxide/Mg Hydroxide (Milk Of Magnesia Liq) 30 ml PO Q12H PRN PRN Reason: Mild Constipation Amlodipine Besylate (Norvasc) 5 mg PO HS RUT Last Admin: 04/25/18 21:49 Dose: Not Given Aripiprazole (Abilify) 5 mg PO DAILY RUT Baclofen (Lioresal) 10 mg PO Q8HR PRN PRN Reason: muscle spasms Bisacodyl (Dulcolax Supp) 10 mg RECTAL DAILY PRN PRN Reason: SEVERE CONSITIPATION Bupropion HCl (Wellbutrin) 75 mg PO BID [facility] Cyclobenzaprine HCl (Flexeril) 5 mg PO TID PRN PRN Reason: SPASM Famotidine (Pepcid) 20 mg PO BID [facility] Fluticasone Propionate (Flonase Nasal [place]) 1 spray EACH NARE DAILY [facility] Gabapentin (Neurontin) 800 mg PO TID [facility] Lactulose (Lactulose Liq) 30 ml PO DAILY PRN PRN Reason: SEVERE CONSITIPATION Lamotrigine (Lamictal) 200 mg PO BID [facility] Meclizine HCl (Antivert) 25 mg PO QID PRN PRN Reason: SEE LABEL COMMENTS Montelukast Sodium (Singulair) 10 mg PO DAILY@1800 [facility] Pantoprazole Sodium (Protonix) 40 mg PO DAILY [facility] Paroxetine HCl (Paxil) 10 mg PO DAILY [facility] Patient Own Medication - Cyclosporine [ Restasis] 1 Drp Each Eye Q12h 0 each EACH EYE Q12H [facility] Patient Own Medication - Mometasone- Formoterol [Dulera] 2 Puff Inhalation Q12h 0 each INH Q12H [facility] Patient Own Medication - Teriflunomide [ Aubagio] 14 Mg Po Daily 0 each PO DAILY [facility] Senna/Docusate Sodium (Heike-Colace) 1 tab PO BID [facility] Last Admin: 04/25/18 21:49 Dose: Not Given Sennosides (Senokot) 17.2 mg PO Q12H PRN PRN Reason: Moderate Constipation Sucralfate (Carafate) 1 gm PO TID PRN PRN Reason: gerd Sumatriptan Succinate (Imitrex 20 Mg Nasal [place]) 1 spray EACH NARE DAILY PRN PRN Reason: migraines Tramadol HCl (Ultram) 50 mg PO Q6H PRN PRN Reason: Pain 2-10 Trazodone HCl (Desyrel) 150 mg PO HS PRN PRN Reason: SLEEP Vitamin D (Vitamin D3) 5,000 unit PO DAILY [facility] Allergies Allergy/AdvReac Type Severity Reaction Status Date / Time oxycodone Allergy Intermediate RASH Verified 04/17/18 05:00 Home Medications Medication Instructions Recorded Confirmed Type amlodipine 5 mg PO HS 04/12/18 04/17/18 History cholecalciferol (vitamin D3) 5,000 unit PO DAILY 04/12/18 04/17/18 History [Vitamin D3] cyclobenzaprine 5 mg PO TID PRN 04/12/18 04/17/18 History cyclosporine [Restasis] 1 drp OPHTHALMIC (EYE) Q12H 04/12/18 04/17/18 History fluticasone [Allergy Relief 1 spray INTRANASAL DAILY 04/12/18 04/17/18 History (fluticasone)] gabapentin 800 mg PO TID 04/12/18 04/17/18 History lamotrigine 200 mg PO BID 04/12/18 04/17/18 History meclizine 25 mg PO QID PRN 04/12/18 04/17/18 History mometasone-formoterol [Dulera] 2 puff INHALATION Q12H 04/12/18 04/17/18 History montelukast 10 mg PO QPM 04/12/18 04/17/18 History pantoprazole 40 mg PO DAILY 04/12/18 04/17/18 History prazosin 1 mg PO HS 04/12/18 04/17/18 History ranitidine HCl 150 mg PO BID 04/12/18 04/17/18 History sucralfate [Carafate] 1 g PO TID PRN 04/12/18 04/17/18 History sumatriptan 20 mg INTRANASAL DAILY PRN 04/12/18 04/17/18 History teriflunomide [Aubagio] 14 mg PO DAILY 04/12/18 04/17/18 History tramadol 50 mg PO Q6H PRN 04/12/18 04/17/18 History trazodone 150 mg PO HS PRN 04/12/18 04/17/18 History Results - Labs CBC & Chem 7: 04/26/18 07:58 Labs: Laboratory Results - last 24 hr 04/26/18 07:58 Sodium 141 Potassium 3.7 Chloride 104 Carbon Dioxide 32.7 H Anion Gap 4 L BUN 15 Creatinine 1.11 H Estimated GFR 65 L Random Glucose 87 Calcium 7.9 L Triglycerides 132 Cholesterol 241 H LDL Cholesterol, Calc 130 H HDL Cholesterol 84.2 H Cholesterol/HDL Ratio 2.86 Exam Vital signs: Vital Signs 04/25/18 17:30 04/26/18 06:00 Temperature 98.2 F 97.8 F Pulse Rate 107 H 88 Respiratory Rate 18 15 Blood Pressure 159/83 H 121/69 Pulse Oximetry 97 Intake & Output 04/25/18 04/26/18 04/26/18 18:59 06:59 18:59 Output Total 250 / 250 Balance -250 / -250 Weight 100.8 kg Output: Urine 250 / 250 Other: Weight On Admission 100.8 kg Assessment and Plan - Assessment (1) Unspecified psychosis Code(s): F29 - Unspecified psychosis not due to a substance or known physiological condition Status: Acute - Plan Plan: Estimated LOS: [] days
--- NOTE | 2018-04-26 11:35 | P.PNPSY ---
Subjective Remarks: Patient seen for follow-up, chart reviewed. Discussion with nursing staff reported that patient found standing up against the wall tearful, paranoid but was able to sit down to engage in interview with rfp writer and nurse. Patient states that she has been having difficulty sleeping stated that she is not depressed but is endorsing racing thoughts and noted to be labile during interview very tearful, and endorsing paranoia stating "I do not feel safe". She also mentions having decreased concentration and difficulty with her recent memory stating "my memories are chasing me" which patient may be referring to previous trauma in the past but did not elaborate stating that she is unable to talk about at this time. Patient states that she had a "freak out" this morning stating that she was feeling so was coming out to hurt her even though she states that she is aware that this may not be real. She denies any perceptual disturbances at this time. Discussion of having patient continue treatment regimen as proposed by Dr. Cook during initial interview was reviewed with patient which she agreed and consented to. Review of Systems All other systems reviewed negative except as stated in HPI Mental Status Examination Appearance: Appropriate Consciousness: Alert, Vigilant Orientation: Person, Place, Date/Time Motor Activity: Normal gait Speech: Unremarkable Language: Adequate Fund of Knowledge: Inadequate Attention and Concentration: Easily distracted Memory: Impaired (Regarding recent memory) Mood: Other ("I cannot answer that") Affect: Labile (Tearful throughout interview) Thought Process & Associations: Intact Thought Content: Delusional Hallucination Type: None Delusion Type: Paranoid Suicidal Ideation: No Suicidal Plan: No Suicidal Intention: No Homicidal Ideation: No Homicidal Plan: No Homicidal Intention: No Insight: Fair Judgment: Impulsive Assessment and Plan - Assessment (1) Unspecified psychosis Code(s): F29 - Unspecified psychosis not due to a substance or known physiological condition Status: Acute - Plan Plan: Estimated LOS: [] days Patient at this time continues with paranoid delusions as well as racing thoughts and labile mood. We will continue patient on Abilify 5 mg p.o. daily for psychosis, continue to taper Wellbutrin to 75 mg p.o. twice daily and start Paxil 10 mg p.o. daily for panic disorder, start clonazepam 0.5 p.o. twice daily for anxiety, continue lamotrigine 200 mg p.o. twice daily for mood stabilization, continue prazosin 1 mg p.o. at bedtime for PTSD related sleep disorder, trazodone 150 mg p.o. at bedtime for sleep disturbance. We will continue to monitor with behavior. Hospitalist input appreciated. Discharge planning in progress. Justification for Continued Inpatient Stay: At risk of further decompensation at lower level care.
[2018-04-26] MEDS: ARIPiprazole 5 MG Tablet PO SCH (12:12)
[2018-04-26] MEDS: lamoTRIgine 100 MG Tablet PO SCH ×2 (12:12→21:50)
--- NOTE | 2018-04-26 12:12 | P.HPPSY ---
Provisional Diagnosis Admission Date: April 25, 2018 16:43 [place] I.: Unspecified psychosis, r/o steroid induced psychosis, r/o bipolar disorder, manic episode with psychotic features Competence Certification of Person's Competence To Provide Express and Informed Consent I have personally examined Mele Dean, a person being served at [facility] on, April 26, 2018 1208. Express and informed consent means consent voluntarily given in writing, by a competent person, after sufficient explanation and disclosure of the subject matter involved to enable the person to make a knowing and willful decision without any element of force, fraud, deceit, duress, or other form of constraint or coercion. This person is 18 years of age or older, is not now known to be incompetent to consent to treatment with a guardian advocate, and does not have a health care surrogate or proxy currently making medical treatment decisions. I have found this person to be one of the following: [x] Competent to provide express and informed consent, as defined above, for voluntary admission to this facility and is competent to provide express and informed consent for treatment. He/she has the consistent capacity to make well reasoned, willful, and knowing decisions concerning his or her medical or mental health treatment. The person fully and consistently understands the purpose of the admission for examination/placement and is fully capable of personally exercising all rights assured under [place] Incompetent to provide express and informed consent to voluntary admission, and this is incompetent to provide express and informed consent to treatment. The person must be transferred to involuntary status and a petition for a guardian advocate filed with the Circuit Court. [] Refusing to provide express and informed consent to voluntary admission but is competent to provide express and informed consent for treatment. The person must be discharged or transferred to involuntary status. Form shall be completed within 24 hours of a person's arrival at the receiving facility and filed in the clinical record of each person: 1. Admitted on a voluntary basis 2. Permitted to provide express and informed consent to his/her own treatment 3. Allowed to transfer from involuntary to voluntary status 4. Prior to permitting a person to consent to his or her own treatment after having been previously found incompetent to consent to treatment. History of Present Illness Capacity: Has capacity History of Present Illness: Late entry. The patient was seen April 25, 2018 The patient is a 42-year-old [facility] woman, domiciled with her mother and 3 kids in [place], single, unemployed at the moment, with a psychiatric history of bipolar disorder, anxiety, but no previous psychiatric hospitalizations, no previous suicide attempts, no history of self cutting behavior, outpatient care in [facility], she is on lamotrigine 400 mg , Wellbutrin 150 mg twice daily with good results, medical history hypertension and multiple sclerosis, who came to the hospital with right-sided weakness and recurrent falls. At baseline she has urinary incontinence and moderate right hemiplegia. Vertigo and headaches are part of her symptoms today and she says this typically has onset after a deficit in the past but is common with an MS exacerbation for her. She has a bladder stimulator implanted in this prohibits her from being able to obtain MRI studies. Possibility of MRI of brain at [place] (will discuss with neurology prior to any transfer). Etiology for her symptoms is likely related to her multiple sclerosis. She was seen by neurology who diagnosed MS exacerbation, was treated with methylprednisolone 250 mg every 6 hours and the patient showed good response and symptoms improve. However for the last 3 days the patient has developed new onset psychosis, with a significant paranoia, disorganized and pressured speech, auditory hallucinations, poor sleep, anxiety and mood lability. The patient got so paranoid that 2 days ago she left the hospital AMA. Family members are very concerned that the patient is very far from baseline, acting very bizarre, and at times not making any sense. Chart was reviewed. I got collateral information from her account Bernadette and also from her mother. They clarified that the patient is acting extremely bizarre, this is out of character for her, they did not feel that she is safe to be discharged. They said that she has 3 kids, one is 15, 16, 1 8 at home and the patient has been paranoid, stating that nurses wanted to kill her, that the TV is talking to her, that she is hearing people talking about her and seeing things and people that do not exist. They clarified that the patient has bipolar disorder, that she has been quite depressed in the past, and also very anxious, but never psychotic like this. On my psychiatric evaluation I find a patient that initially is calm, cooperative and pleasant. She says that she is feeling much better today. She tells me that the reason she is hospitalized is due to multiple sclerosis exacerbation, "I am feeling better and stronger". She initially reports to be in a good mood, positive, hopeful and motivated to continue medical treatment and get better. However, when I asked the patient if she feels safe here the patient breaks in tears, become extremely labile, incoherent, and start making accusation to the nurses and to the doctor stating that "because they cannot see what I think, they cannot understand my illness, and they prefer to talk about me and destroyed my reputation of my family reputation". Patient start crying profusely and yelling that she wants to go home. However, she was sensitive to verbal redirection and I was able to bring her back to the reality. She then started laughing quite inappropriately stating that "the problem is that I cannot concentrate in the jokes that you are making me". The patient seems to be insightful about her psychosis, she states that she knows that something is wrong with her and she does not want to continue having mental problems and is willing to be admitted in psychiatry and be treated. The patient is fully oriented x3, I cannot perceive any attention deficit, any fluctuation of consciousness at this moment. Patient reports that she is very anxious, and is sleeping very poorly at night. PPHx: psychiatric history of bipolar disorder, anxiety, but no previous psychiatric hospitalizations, no previous suicide attempts, no history of self cutting behavior, outpatient care in [facility], she is on lamotrigine 400 mg, Wellbutrin 150 mg twice daily with good results PMHx: medical history hypertension and multiple sclerosis, who came to the hospital with right-sided weakness and recurrent falls Substance Hx: Patient denies that use of illegal drugs Family Hx: No family psychiatric history Social Hx: The patient was born and raised in [place], living in the [facility] for about 30 years. She lives now with her mother and 3 kids, 50-year- old, 8-year-old, 16-year-old. She is single. Unemployed at the moment. Supported by her family. Christianity zoroastrian. Her highest level of education is a bachelor degree in communications. - Inpatient Certification I certify that the inpatient services were ordered in accordance with Medicare regulations governing the order. This includes certification that hospital inpatient services are reasonable and necessary and in the case of services not specified as inpatient-only under 42 CFR 419.22(n), that they are appropriately provided as inpatient services in accordance to with the 2-midnight benchmark under 43 CFR 412.3(e) I certify that inpatient psychiatric hospital services are medically necessary. Evaluation and treatment and/or diagnostic testing are expected to improve the patient's condition. The patient needs on a daily basis, active treatment furnished directly by or requiring the supervision of inpatient psychiatric facility personnel. Estimated Total Length of Stay (Days): 7 Plans for Post Hospital Care: Home Review of Systems All other systems reviewed negative except as stated in HPI Psychiatric: Reports anxiety, Reports behavioral changes, Reports confusion, Reports irritability, Reports panic attacks, Reports paranoia, Reports sensing things others do not sense PMFSH - History History Provided By: Patient, Manager Hi / EMT - Medical History Medical History: Medical History (Last Reviewed 04/25/18 @ 14:36 by Chacha Will) Chronic pain Depression Dry eyes GERD (gastroesophageal reflux disease) Hypertension Migraine Multiple sclerosis Seasonal allergies Urinary dysfunction Vertigo - Surgical History Surgical History: Surgical History (Last Reviewed 04/25/18 @ 14:36 by Chacha Will) H/O section History of cholecystectomy Hx of breast biopsy Hx of tonsillectomy - Family History Family History: Family History (Last Reviewed 04/25/18 @ 14:36 by Chacha Will) Other Osteoarthritis - Tobacco History Second Hand Smoke Exposure: No Tobacco Use In Past 30 Days: No Smoking Status: Never smoker - Alcohol History How Often Do You Have a Drink Containing Alcohol: Never - Substance Use History Substance History: No History of Abuse - Travel History Recent Travel in the [place] Within the Last 8 Weeks: No Recent Travel Out of the Country Within the Last 8 Weeks: No - Immunization History Tetanus Immunization: Unsure Hx Influenza Vaccine This Season: Unable to Assess Medications and Allergies Active Medications: Active Medications Al Hydrox/Mg Hydrox/Simethicone (Mag-Al Plus Susp Liq) 30 ml PO Q6H PRN PRN Reason: DYSPEPSIA Al Hydroxide/Mg Hydroxide (Milk Of Magnesia Liq) 30 ml PO Q12H PRN PRN Reason: Mild Constipation Amlodipine Besylate (Norvasc) 5 mg PO HS RUT Last Admin: 04/25/18 21:49 Dose: Not Given Aripiprazole (Abilify) 5 mg PO DAILY RUT Baclofen (Lioresal) 10 mg PO Q8HR PRN PRN Reason: muscle spasms Bisacodyl (Dulcolax Supp) 10 mg RECTAL DAILY PRN PRN Reason: SEVERE CONSITIPATION Bupropion HCl (Wellbutrin) 75 mg PO BID [facility] Cyclobenzaprine HCl (Flexeril) 5 mg PO TID PRN PRN Reason: SPASM Famotidine (Pepcid) 20 mg PO BID [facility] Fluticasone Propionate (Flonase Nasal [place]) 1 spray EACH NARE DAILY [facility] Gabapentin (Neurontin) 800 mg PO TID [facility] Lactulose (Lactulose Liq) 30 ml PO DAILY PRN PRN Reason: SEVERE CONSITIPATION Lamotrigine (Lamictal) 200 mg PO BID [facility] Meclizine HCl (Antivert) 25 mg PO QID PRN PRN Reason: SEE LABEL COMMENTS Montelukast Sodium (Singulair) 10 mg PO DAILY@1800 [facility] Pantoprazole Sodium (Protonix) 40 mg PO DAILY [facility] Paroxetine HCl (Paxil) 10 mg PO DAILY [facility] Patient Own Medication - Cyclosporine [ Restasis] 1 Drp Each Eye Q12h 0 each EACH EYE Q12H [facility] Patient Own Medication - Mometasone- Formoterol [Dulera] 2 Puff Inhalation Q12h 0 each INH Q12H [facility] Patient Own Medication - Teriflunomide [ Aubagio] 14 Mg Po Daily 0 each PO DAILY [facility] Prazosin HCl (Minipress) 1 mg PO HS [facility] Senna/Docusate Sodium (Heike-Colace) 1 tab PO BID [facility] Last Admin: 04/25/18 21:49 Dose: Not Given Sennosides (Senokot) 17.2 mg PO Q12H PRN PRN Reason: Moderate Constipation Sucralfate (Carafate) 1 gm PO TID PRN PRN Reason: gerd Sumatriptan Succinate (Imitrex 20 Mg Nasal [place]) 1 spray ONE NARE DAILY PRN PRN Reason: migraines Tramadol HCl (Ultram) 50 mg PO Q6H PRN PRN Reason: Pain 2-10 Trazodone HCl (Desyrel) 150 mg PO HS PRN PRN Reason: SLEEP Vitamin D (Vitamin D3) 5,000 unit PO DAILY [facility] Allergies Allergy/AdvReac Type Severity Reaction Status Date / Time oxycodone Allergy Intermediate RASH Verified 04/17/18 05:00 Home Medications Medication Instructions Recorded Confirmed Type amlodipine 5 mg PO HS 04/12/18 04/17/18 History cholecalciferol (vitamin D3) 5,000 unit PO DAILY 04/12/18 04/17/18 History [Vitamin D3] cyclobenzaprine 5 mg PO TID PRN 04/12/18 04/17/18 History cyclosporine [Restasis] 1 drp OPHTHALMIC (EYE) Q12H 04/12/18 04/17/18 History fluticasone [Allergy Relief 1 spray INTRANASAL DAILY 04/12/18 04/17/18 History (fluticasone)] gabapentin 800 mg PO TID 04/12/18 04/17/18 History lamotrigine 200 mg PO BID 04/12/18 04/17/18 History meclizine 25 mg PO QID PRN 04/12/18 04/17/18 History mometasone-formoterol [Dulera] 2 puff INHALATION Q12H 04/12/18 04/17/18 History montelukast 10 mg PO QPM 04/12/18 04/17/18 History pantoprazole 40 mg PO DAILY 04/12/18 04/17/18 History prazosin 1 mg PO HS 04/12/18 04/17/18 History ranitidine HCl 150 mg PO BID 04/12/18 04/17/18 History sucralfate [Carafate] 1 g PO TID PRN 04/12/18 04/17/18 History sumatriptan 20 mg INTRANASAL DAILY PRN 04/12/18 04/17/18 History teriflunomide [Aubagio] 14 mg PO DAILY 04/12/18 04/17/18 History tramadol 50 mg PO Q6H PRN 04/12/18 04/17/18 History trazodone 150 mg PO HS PRN 04/12/18 04/17/18 History Results - Labs CBC & Chem 7: 04/26/18 07:58 Labs: Laboratory Results - last 24 hr 04/26/18 07:58 Sodium 141 Potassium 3.7 Chloride 104 Carbon Dioxide 32.7 H Anion Gap 4 L BUN 15 Creatinine 1.11 H Estimated GFR 65 L Random Glucose 87 Calcium 7.9 L Triglycerides 132 Cholesterol 241 H LDL Cholesterol, Calc 130 H HDL Cholesterol 84.2 H Cholesterol/HDL Ratio 2.86 Exam Vital signs: Vital Signs 04/25/18 17:30 04/26/18 06:00 Temperature 98.2 F 97.8 F Pulse Rate 107 H 88 Respiratory Rate 18 15 Blood Pressure 159/83 H 121/69 Pulse Oximetry 97 Intake & Output 04/25/18 04/26/18 04/26/18 18:59 06:59 18:59 Output Total 250 / 250 Balance -250 / -250 Weight 100.8 kg Output: Urine 250 / 250 Other: Weight On Admission 100.8 kg Narrative: No tremors, no EPS, no psychomotor agitation or retardation, no withdrawal symptoms, no catatonia - Constitutional moderate distress - Routine HEENT Exam Head: Present: normocephalic, atraumatic Eye: Present: EOMI, PERRL ENT: Present: mucous membranes moist Mental Status Examination Appearance: Appropriate Consciousness: Alert Orientation: x4 Motor Activity: Normal gait Speech: Unremarkable Language: Adequate Fund of Knowledge: Adequate Attention and Concentration: Adequate Memory: Unremarkable Mood: Irritable Affect: Irritable Thought Process & Associations: Loose associations, Tangential Thought Content: Bizarre thinking, Hallucinations, Racing thoughts, Delusional Hallucination Type: Auditory, Visual Delusion Type: None Suicidal Ideation: No Suicidal Plan: No Suicidal Intention: No Homicidal Ideation: No Homicidal Plan: No Homicidal Intention: No Insight: Fair Judgment: Impulsive Assessment and Plan - Assessment (1) Unspecified psychosis Code(s): F29 - Unspecified psychosis not due to a substance or known physiological condition Status: Acute (2) Unspecified psychosis Code(s): F29 - Unspecified psychosis not due to a substance or known physiological condition Status: Acute - Plan Plan: On my psychiatric evaluation I find a patient that initially presents quite calm , cooperative, pleasant, but as the interview progressed she shoes episodic disorganization, pressured speech, paranoia, mood lability and a significant detachment from the reality. As per mother, round, primary medical team, in the last 2 days the patient has been increasingly psychotic, with moments of agitation, visual and auditory hallucinations, increased paranoia in which the patient has been accusing family and nursing of been hurting her, talking about her, watching her. At some point due to her paranoia, the patient left AMA the hospital when she was still in treatment. This is a patient with a psychiatric history of bipolar disorder, anxiety, but no previous psychiatric hospitalizations, no previous suicide attempts and she has been stable in outpatient care and Wellbutrin 150 mg twice daily and Lamictal 200 mg daily. The patient was initially admitted under observation to medicine due to multiple sclerosis exacerbation and she was a started in methylprednisolone 250 mg every 6 hours. Psychotic symptoms started about 5 days after beginning steroids therapy. Current psychiatric symptoms seems to be secondary to steroid therapy, but also a bipolar disorder exacerbation needs to be carefully ruled out. His steroids has been discontinued now. Family members are very concerned about the safety of the patient and her kids if she is discharged. Patient has an elevated risk of danger to self and others and also self neglecting herself. She is insightful enough to understand the importance of a psychiatric admission, she will be admitted voluntarily in psychiatry for stabilization and safety. I will start Abilify 5 mg daily for her psychosis. Continue her lamotrigine 200 mg twice daily. I will taper down the Wellbutrin to 75 mg daily with the goal of discontinuing this medication and starting a better medication for anxiety, will start Paxil 10 mg daily. Also will order clonazepam 0.5 mg twice daily for her anxiety. Extensive support, motivational psychoeducation provided. Patient is a good candidate for the MedPsych unit. Justification for Continued Inpatient Stay: To be admitted in psychiatry
[2018-04-26] MEDS: Gabapentin 400 MG Capsule PO SCH ×3 (12:14→17:55)
[2018-04-26] MEDS: Senna/Docusate Sodium 8.6/50 MG Tablet PO SCH ×2 (12:14→21:51)
[2018-04-26] MEDS: buPROPion 75 MG Tablet PO SCH ×2 (12:16→21:51)
[2018-04-26 17:21] LABS: Hemoglobin A1c 6.6 % (4.3-6.0)
[2018-04-26] MEDS: Montelukast 10 MG Tablet PO SCH (17:55)
[2018-04-26] MEDS ORDERED: traZODone 50 MG Tablet PO PRN (21:00)
[2018-04-26] MEDS: Famotidine 20 MG Tablet PO SCH (21:50)
[2018-04-26] MEDS: amLODIPine 5 MG Tablet PO SCH (21:50)
[2018-04-26] MEDS: Prazosin HCl 1 MG Capsule PO SCH (21:50)
[2018-04-26] MEDS: traZODone 50 MG Tablet PO SCH (21:50)
[2018-04-27] MEDS: ARIPiprazole 5 MG Tablet PO SCH (09:20)
[2018-04-27] MEDS: Famotidine 20 MG Tablet PO SCH ×2 (09:21→21:42)
[2018-04-27] MEDS: Gabapentin 400 MG Capsule PO SCH ×3 (09:21→17:42)
[2018-04-27] MEDS: Senna/Docusate Sodium 8.6/50 MG Tablet PO SCH ×2 (09:21→21:42)
[2018-04-27] MEDS: lamoTRIgine 100 MG Tablet PO SCH ×2 (09:22→21:42)
[2018-04-27] MEDS: buPROPion 75 MG Tablet PO SCH ×2 (09:23→21:42)
--- NOTE | 2018-04-27 10:15 | P.PNPSY ---
Subjective Remarks: Patient seen for follow-up, chart reviewed. Discussion with nursing staff reported that patient slept more this evening, was upset overnight after another patient went into her room which has told her. Patient was found sitting in hospital bed B, cooperative. Patient states that she felt that she rested a little more last night. Patient states she is pushing herself to change her perspective although continues to have paranoid ideation and anxiety related to her fear that someone will come in and try to hurt her. Patient tolerated medications well. Noted to have less lability today. Review of Systems All other systems reviewed negative except as stated in HPI Mental Status Examination Appearance: Appropriate Consciousness: Alert, Vigilant Orientation: Person, Place, Date/Time Motor Activity: Normal gait Speech: Unremarkable Language: Adequate Fund of Knowledge: Inadequate Attention and Concentration: Easily distracted Memory: Impaired (Regarding recent memory) Mood: Other ("I cannot answer that") Affect: Labile (Lessening) Thought Process & Associations: Intact Thought Content: Delusional Hallucination Type: None Delusion Type: Paranoid Suicidal Ideation: No Suicidal Plan: No Suicidal Intention: No Homicidal Ideation: No Homicidal Plan: No Homicidal Intention: No Insight: Fair Judgment: Impulsive Assessment and Plan - Assessment (1) Unspecified psychosis Code(s): F29 - Unspecified psychosis not due to a substance or known physiological condition Status: Acute - Plan Plan: Patient this time continues with paranoid ideation delusions although continues to have fair insight into the paranoia but continues to have this fear. We will continue to taper off Wellbutrin and increase Abilify to 10 mg p.o. daily for psychosis. Continue rest of medications. Continue to monitor mood and behavior. Continue recommendations as per hospitalist team for management of MS. Discharge planning in progress. Justification for Continued Inpatient Stay: At risk of further decompensation at lower level care.
--- NOTE | 2018-04-27 15:44 | P.PN ---
Subjective Interval history: Follow-up visit for MS and urinary dysfunction. Patient is seen and examined sitting up in bed in no acute distress. She reports she left the room today. She is requesting to have Freeman catheter removed, states that her bladder stimulater has been turned off and she has chronic incontinence at home. She denies any fevers, chills, N/V/D, cough or SOB. She is more talkative today and has no other complaints at the moment. Physical Exam Vital signs: Vital Signs 04/26/18 17:42 04/27/18 06:00 Temperature 98.1 F 97.6 F Pulse Rate 88 88 Respiratory Rate 18 15 Blood Pressure 127/67 104/53 L Pulse Oximetry 96 95 Intake & Output 04/26/18 04/27/18 04/27/18 18:59 06:59 18:59 Intake Total 720 / 720 480 / 480 360 / 360 Output Total 250 / 250 300 / 300 Balance 470 / 470 180 / 180 360 / 360 Intake: Oral 720 / 720 480 / 480 360 / 360 Output: Urine 250 / 250 300 / 300 Narrative: GENERAL: Well-developed, obese AA female sitting up in bed in no acute distress. SKIN: Warm and dry. HEAD: Atraumatic. Normocephalic. EYES: Pupils equal and round. No scleral icterus. No injection or drainage. ENT: No nasal bleeding or discharge. Mucous membranes pink and moist. NECK: Trachea midline. CARDIOVASCULAR: Regular rate and rhythm. RESPIRATORY: No accessory muscle use. Clear to auscultation. Breath sounds equal bilaterally. GASTROINTESTINAL/: Abdomen soft, non-tender, nondistended. + Bowel sounds. Freeman with clear yellow urine. MUSCULOSKELETAL: Extremities without clubbing, cyanosis, or edema. No obvious deformities. NEUROLOGICAL: Awake, alert, oriented x3. No obvious cranial nerve deficits. LUE & LLE 5/5, RUE 4/5, RLE 3/5. Normal speech. PSYCHIATRIC: Cooperative and calm - Urinary Catheter Management Indwelling Urethral Catheter Cath placed during this visit: no Reason for continuing: Other continuation reason Results - Labs CBC & Chem 7: 04/26/18 07:58 Laboratory Results - last 24 hr 04/26/18 07:58 Hemoglobin A1c 6.6 H Assessment and Plan - Plan 42-year-old AA female with past medical history significant for MS, migraines, urinary dysfunction, HTN, GERD, chronic pain, depression and vertigo who presented to the emergency department on 04/17 due to right-sided weakness and recurrent falls. Head CT completed in the emergency department was negative. Additional imaging including pelvis x-ray, right knee, femur and ankle x-ray all negative. Patient was unable to have MRI due to implanted bladder stimulator. She was seen and evaluated by neurology services and was treated with IV Solu-Medrol as well as started on baclofen for spasms. [place] [facility] evaluated patient during her hospitalization. Patient also had Freeman catheter inserted due to bladder dysfunction. She was seen and evaluated by psychiatry due to suspected psychosis possibly steroid-induced. She was admitted to medical psychiatry on a voluntary basis. [facility] now consulted to assist with ongoing medical management. MS exacerbation versus progression Vertigo; Right hemiplegia Neurology consulted; treated with IV steroids with improvement, DC 04/24. Head CT negative MRI studies on hold secondary to implanted bladder stimulator Physical therapy and rehab consults, likely needs rehab however unable to place at this time, continue to work with PT during hospitalization PT to continue following Chronic pain with acute exacerbation Continue Tramadol PRN Intermittent anxiety with forgetfulness and paranoia Suspect acute psychosis, possibly steroid induced Hx of Bipolar Disorder Patient admitted to medical psychiatry unit for further evaluation Chronic incontinence Dysfunctional bladder stimulator Revision of bladder stimulator in process as an outpatient Freeman catheter placed, will DC and monitor output Hypertension Dry eyes Gastroesophageal reflux disease Migraine headaches Seasonal allergies All chronic-no change to baseline treatments Follow these conditions clinically DVT Prophylaxis-ambulation Discussed Condition With: Patient and nursing staff.
[2018-04-27] MEDS: Montelukast 10 MG Tablet PO SCH (17:42)
[2018-04-27] MEDS: Baclofen 10 MG Tablet PO PRN (17:55)
[2018-04-27] MEDS: traZODone 50 MG Tablet PO SCH (21:00)
[2018-04-27] MEDS: amLODIPine 5 MG Tablet PO SCH (21:42)
[2018-04-27] MEDS: Prazosin HCl 1 MG Capsule PO SCH (21:42)
[2018-04-28] MEDS: Baclofen 10 MG Tablet PO PRN (03:30)
[2018-04-28] MEDS: Gabapentin 400 MG Capsule PO SCH ×3 (08:36→18:18)
[2018-04-28] MEDS: lamoTRIgine 100 MG Tablet PO SCH ×2 (08:37→20:46)
[2018-04-28] MEDS: Senna/Docusate Sodium 8.6/50 MG Tablet PO SCH ×2 (08:37→20:45)
[2018-04-28] MEDS: Famotidine 20 MG Tablet PO SCH ×2 (08:37→20:45)
[2018-04-28] MEDS: ARIPiprazole 10 MG Tablet PO SCH (08:38)
--- NOTE | 2018-04-28 11:39 | P.PNPSY ---
Subjective Chief Complaint: Paranoid delusions with active hallucinations on admission to psychiatry Remarks: April 28, 2018 Patient's record was reviewed and discussed with the nursing staff. Patient interviewed with the nursing staff present. Patient is alert and no longer complaining of paranoid concerned. Denies auditory and visual hallucinations are present today. Patient is however amnesic for the events leading to her transfer to the psychiatry service. She has been awakening at 4 AM, explaining that this is her usual behavior in order to get her kids ready for school. Mental Status Examination Appearance: Appropriate Consciousness: Alert, Vigilant Orientation: Person, Place, Date/Time Motor Activity: Normal gait Speech: Unremarkable Language: Adequate Fund of Knowledge: Inadequate Attention and Concentration: Easily distracted Memory: Impaired (Patient is amnesic for the events leading to her psychiatric admission) Mood: Good Affect: Appropriate (Somewhat bewildered) Thought Process & Associations: Intact Hallucination Type: None Delusion Type: Paranoid Suicidal Ideation: No Suicidal Plan: No Suicidal Intention: No Homicidal Ideation: No Homicidal Plan: No Homicidal Intention: No Insight: Fair Judgment: Impulsive Assessment and Plan - Assessment (1) Unspecified psychosis Code(s): F29 - Unspecified psychosis not due to a substance or known physiological condition Status: Acute - Plan Plan: Patient this time continues with paranoid ideation delusions although continues to have fair insight into the paranoia but continues to have this fear. We will continue to taper off Wellbutrin and increase Abilify to 10 mg p.o. daily for psychosis. Continue rest of medications. Continue to monitor mood and behavior. Continue recommendations as per hospitalist team for management of MS. Discharge planning in progress. No changes in plan for today April 28, 2018 Justification for Continued Inpatient Stay: Patient remains confused and perhaps additional information needs to be explored regarding the timing of psychiatric symptoms, since they may be related to injections of corticosteroid. Discharge planning is in place
--- NOTE | 2018-04-28 17:27 | P.PN ---
Subjective Interval history: Follow-up visit for MS, urinary dysfunction, and DM. Patient is seen and examined resting in bed with eyes closed, covered with a towel and ice pack in room. She complains of nausea and migraine headache. She denies any vision changes, vomiting, diarrhea, fevers, chills, suprapubic pain or dysuria. Freeman catheter was discontinued and she has been able to void without incontinence or hesitancy. Physical Exam Vital signs: Vital Signs 04/27/18 17:42 04/28/18 05:47 Temperature 97.8 F 97.3 F L Pulse Rate 102 H 107 H Respiratory Rate Blood Pressure 153/86 H 130/90 Pulse Oximetry 97 97 Intake & Output 04/27/18 04/28/18 04/28/18 18:59 06:59 18:59 Intake Total 840 / 840 1200 / 1200 Output Total 1765 / 1765 Balance 840 / 840 -565 / -565 Intake: Oral 840 / 840 1200 / 1200 Output: Urine Amount (Catheter) 1764 / 1765 Indwelling Urethral Catheter 1764 / 176 Narrative: GENERAL: Well-developed, obese AA female resting in bed in no acute distress. SKIN: Warm and dry. HEAD: Atraumatic. Normocephalic. EYES: Pupils equal and round. No scleral icterus. No injection or drainage. ENT: No nasal bleeding or discharge. Mucous membranes pink and moist. NECK: Trachea midline. CARDIOVASCULAR: Regular rate and rhythm. RESPIRATORY: No accessory muscle use. Clear to auscultation. Breath sounds equal bilaterally. GASTROINTESTINAL: Abdomen soft, non-tender, nondistended. + Bowel sounds. MUSCULOSKELETAL: Extremities without clubbing, cyanosis, or edema. No obvious deformities. NEUROLOGICAL: Awake, alert, oriented x3. No obvious cranial nerve deficits. Moving all extremities. Normal speech. PSYCHIATRIC: Cooperative and calm - Urinary Catheter Management Indwelling Urethral Catheter Cath placed during this visit: yes, but has since been removed by the nurse Reason for continuing: Decision to DC catheter Removal date: 04/28/18 Removal time: 09:30 Results - Labs CBC & Chem 7: 04/26/18 07:58 Assessment and Plan - Plan 42-year-old AA female with past medical history significant for MS, migraines, urinary dysfunction, HTN, GERD, chronic pain, depression and vertigo who presented to the emergency department on 04/17 due to right-sided weakness and recurrent falls. Head CT completed in the emergency department was negative. Additional imaging including pelvis x-ray, right knee, femur and ankle x-ray all negative. Patient was unable to have MRI due to implanted bladder stimulator. She was seen and evaluated by neurology services and was treated with IV Solu-Medrol as well as started on baclofen for spasms. [facility] evaluated patient during her hospitalization. Patient also had Freeman catheter inserted due to bladder dysfunction. She was seen and evaluated by psychiatry due to suspected psychosis possibly steroid-induced. She was admitted to medical psychiatry on a voluntary basis. [facility] now consulted to assist with ongoing medical management. MS exacerbation versus progression Vertigo; Right hemiplegia Neurology consulted; treated with IV steroids with improvement, DC 04/24. Head CT negative MRI studies on hold secondary to implanted bladder stimulator Physical therapy and rehab consults, likely needs rehab however unable to place at this time, continue to work with PT during hospitalization PT to continue following Chronic pain with acute exacerbation Continue Tramadol PRN Intermittent anxiety with forgetfulness and paranoia Suspect acute psychosis, possibly steroid induced Hx of Bipolar Disorder Patient admitted to medical psychiatry unit for further evaluation Chronic incontinence Dysfunctional bladder stimulator Revision of bladder stimulator in process as an outpatient Freeman catheter DC 04/28, voiding with no issues. Hypertension Dry eyes Gastroesophageal reflux disease Migraine headaches Seasonal allergies PRN Imitrex New onset-DM Hemoglobin A1C 6.6 -ADA diet, Metformin 500mg BID, tolerating well DVT Prophylaxis-ambulation Patient medically stable. Can be transferred to regular med psych floor. [facility] will sign off, please reconsult if needed. Discussed Condition With: Patient and RN
[2018-04-28] MEDS: Montelukast 10 MG Tablet PO SCH (18:18)
[2018-04-28] MEDS: traZODone 50 MG Tablet PO SCH (20:45)
[2018-04-28] MEDS: amLODIPine 5 MG Tablet PO SCH (20:45)
[2018-04-28] MEDS: Prazosin HCl 1 MG Capsule PO SCH (20:45)
[2018-04-29] MEDS: Famotidine 20 MG Tablet PO SCH ×2 (09:17→20:31)
[2018-04-29] MEDS: Senna/Docusate Sodium 8.6/50 MG Tablet PO SCH ×2 (09:17→20:31)
[2018-04-29] MEDS: Gabapentin 400 MG Capsule PO SCH ×3 (09:17→17:06)
[2018-04-29] MEDS: ARIPiprazole 10 MG Tablet PO SCH (09:18)
[2018-04-29] MEDS: lamoTRIgine 100 MG Tablet PO SCH ×2 (09:18→20:31)
--- NOTE | 2018-04-29 12:48 | P.PNPSY ---
Subjective Chief Complaint: Paranoid delusions with active hallucinations on admission to psychiatry Remarks: Patient was seen and case discussed with nursing. Patient continues to improve. Nursing has not noticed any bizarre behavior today. At this time, no delusions were elicited. Patient says she is hyper aware of sounds around her and was crying this morning for no reason. She denies suicidal or homicidal ideation intent or plan. Review of Systems All other systems reviewed negative except as stated in HPI Mental Status Examination Appearance: Appropriate Consciousness: Alert, Vigilant Orientation: Person, Place, Date/Time Motor Activity: Normal gait Speech: Unremarkable Language: Adequate Fund of Knowledge: Inadequate Attention and Concentration: Easily distracted Memory: Impaired (Patient is amnesic for the events leading to her psychiatric admission) Mood: Good Affect: Appropriate (Somewhat bewildered) Thought Process & Associations: Intact Thought Content: Depersonalization Hallucination Type: None Delusion Type: Somatic Suicidal Ideation: No Suicidal Plan: No Suicidal Intention: No Homicidal Ideation: No Homicidal Plan: No Homicidal Intention: No Insight: Fair Judgment: Impulsive Assessment and Plan - Assessment (1) Unspecified psychosis Code(s): F29 - Unspecified psychosis not due to a substance or known physiological condition Status: Acute - Plan Plan: Continue current treatment plan Justification for Continued Inpatient Stay: Patient would decompensate in a less restrictive setting
[2018-04-29] MEDS: Baclofen 10 MG Tablet PO PRN (16:11)
[2018-04-29] MEDS: Montelukast 10 MG Tablet PO SCH (17:06)
[2018-04-29] MEDS: amLODIPine 5 MG Tablet PO SCH (20:31)
[2018-04-29] MEDS: Prazosin HCl 1 MG Capsule PO SCH (20:31)
[2018-04-29] MEDS: traZODone 50 MG Tablet PO SCH (20:31)
[2018-04-30] MEDS: Baclofen 10 MG Tablet PO PRN ×3 (01:14→18:01)
[2018-04-30] MEDS: Famotidine 20 MG Tablet PO SCH ×2 (09:34→20:27)
[2018-04-30] MEDS: lamoTRIgine 100 MG Tablet PO SCH ×2 (09:34→20:28)
[2018-04-30] MEDS: ARIPiprazole 10 MG Tablet PO SCH (09:35)
[2018-04-30] MEDS: Gabapentin 400 MG Capsule PO SCH ×3 (09:35→18:01)
[2018-04-30] MEDS: Senna/Docusate Sodium 8.6/50 MG Tablet PO SCH ×2 (09:36→20:28)
--- NOTE | 2018-04-30 16:41 | P.PNPSY ---
Subjective Chief Complaint: Paranoid delusions with active hallucinations on admission to psychiatry Remarks: Patient was seen and case discussed with nursing. Indialilay appears to have had little efficacy as per nursing patient has been very delusional. She was up all night having conversations with herself and responding to auditory hallucinations. She remains labile for this interview and this morning and admits to auditory hallucinations noncommand in nature. She denies suicidal or homicidal ideas. Insight is poor, asking about discharge Mental Status Examination Appearance: Appropriate Consciousness: Alert, Vigilant Orientation: Person, Place, Date/Time Motor Activity: Normal gait Speech: Unremarkable Language: Adequate Fund of Knowledge: Inadequate Attention and Concentration: Easily distracted Memory: Impaired (Patient is amnesic for the events leading to her psychiatric admission) Mood: Good Affect: Appropriate (Somewhat bewildered) Thought Process & Associations: Disorganized Thought Content: Derealization Hallucination Type: Auditory Delusion Type: Bizarre, Paranoid Suicidal Ideation: No Suicidal Plan: No Suicidal Intention: No Homicidal Ideation: No Homicidal Plan: No Homicidal Intention: No Insight: Fair Judgment: Impulsive Assessment and Plan - Assessment (1) Unspecified psychosis Code(s): F29 - Unspecified psychosis not due to a substance or known physiological condition Status: Acute - Plan Plan: EMILY Frost. Start Seroquel 100 mg p.o. nightly. Neurology consult for resumption of MS medication, PT consult to encourage patient to get out of bed and help in her strength Justification for Continued Inpatient Stay: Patient would decompensate in a less restrictive setting
[2018-04-30] MEDS: Montelukast 10 MG Tablet PO SCH (18:01)
[2018-04-30] MEDS: Prazosin HCl 1 MG Capsule PO SCH (20:27)
[2018-04-30] MEDS: amLODIPine 5 MG Tablet PO SCH (20:27)
[2018-04-30] MEDS: QUEtiapine 100 MG Tablet PO SCH (20:27)
[2018-04-30] MEDS: traZODone 50 MG Tablet PO SCH (20:28)
[2018-05-01] MEDS: Senna/Docusate Sodium 8.6/50 MG Tablet PO SCH ×2 (08:21→20:13)
[2018-05-01] MEDS: Gabapentin 400 MG Capsule PO SCH ×3 (08:21→17:18)
[2018-05-01] MEDS: Famotidine 20 MG Tablet PO SCH ×2 (08:22→20:13)
[2018-05-01] MEDS: lamoTRIgine 100 MG Tablet PO SCH ×2 (08:22→20:13)
--- NOTE | 2018-05-01 12:54 | P.PNPSY ---
Subjective Chief Complaint: Paranoid delusions with active hallucinations on admission to psychiatry Remarks: May 01, 2018 The patient today is seen with the RN who notes that the patient may be malingering. She suddenly needs a walker and is complaining of return of hallucinations. In addressing this problem with the patient she addresses it as though she were discussing a grocery list and without signs of distress. It is quite possible that the patient's MS might explain the walker. Previous notes have indicated the patient was not responding to Abilify so was changed to Seroquel. Patient has no complaints of sedation or motor signs of side effects. (It is doubtful the weakness and difficulty walking requiring a walker due to the medications.) When seen on Tuesday the patient is completely free of any delusions or hallucinations and was stable with the idea that her psychosis had been the result of corticosteroid administration for her MS. Mental Status Examination Appearance: Appropriate Consciousness: Alert, Vigilant Orientation: Person, Place, Date/Time Motor Activity: Normal gait (Patient has been seen without a walker walking normally.), Other (Today patient needs a walker, but is standing unsupported by the walker) Speech: Unremarkable Language: Adequate Fund of Knowledge: Adequate Attention and Concentration: Adequate Memory: Impaired (Patient is amnesic for the events leading to admission for psychosis.) Mood: Good Affect: Appropriate Thought Process & Associations: Logical Thought Content: Hallucinations (Questioned the validity) Hallucination Type: Auditory (Questionable validity) Delusion Type: Bizarre, Paranoid Suicidal Ideation: No Suicidal Plan: No Suicidal Intention: No Homicidal Ideation: No Homicidal Plan: No Homicidal Intention: No Insight: Poor Judgment: Impulsive (Extremely variable) Assessment and Plan - Assessment (1) Unspecified psychosis Code(s): F29 - Unspecified psychosis not due to a substance or known physiological condition Status: Acute - Plan Plan: DC Abilify. Start Seroquel 100 mg p.o. nightly. Neurology consult for resumption of MS medication, PT consult to encourage patient to get out of bed and help in her strength. May 01, 2018 Patient will be observed for possible recurrence of MS symptoms to explain the deterioration in her ability to walk unsupported by a walker. There is also a question of further not the patient is reliable regarding her psychiatric symptomatology. Justification for Continued Inpatient Stay: Patient has deteriorated over the past week and an needs further assessment of the interplay between her MS, her medications and possible anxiety about returning home. (1) Unspecified psychosis Qualifiers: Psychosis type: brief psychotic disorder Qualified Code(s): F23 - Brief psychotic disorder
[2018-05-01] MEDS: Baclofen 10 MG Tablet PO PRN (13:16)
--- NOTE | 2018-05-01 14:55 | MB ---
cc: Mackenzie Jurado MD DATE: 05/01/2018 REASON FOR CONSULTATION: History of MS, starting medication. HISTORY OF PRESENT ILLNESS: This is a 42-year-old woman with history of multiple sclerosis; states diagnosed last in September 2016 by a neurologist locally Dr. Hicks. She states he did a spinal tap, but per patient, it was clear, but does not know what the differential was and if she had oligoclonal bands, etc. She was placed on Aubagio; has been on that drug since. She has a history of migraines, urinary dysfunction, facial issues; has been following with Dr. Kumari, hypertension, reflux, chronic pain, depression; came in on 04/17/2018 for some right-sided weakness. Saw my associate, Dr. Roberto; was placed on Solu-Medrol 250 mg four times a day, sent to rehabilitation. Apparently had been started also on baclofen. She states she had issues seeing things; hallucinations/psychosis with Solu-Medrol; she has never used that in the past. She offers no new complaints. She has issues, she states, with sometimes word finding memory and with balance. She has residual right-sided weakness. PAST MEDICAL HISTORY: As stated. PAST SURGICAL HISTORY: , cholecystectomy, breast biopsy and tonsillectomy. SOCIAL HISTORY: She does not smoke, does not drink. Has children, lives with them. ALLERGIES TO MEDICINE: OXYCODONE. PHYSICAL EXAMINATION: VITAL SIGNS: Temperature is 96.7, pulse 77, respiratory rate 17, blood pressure 142/72, saturating at 99% on room air. GENERAL: She is awake and alert. She is calm. NEUROLOGIC: Her speech is fluent. Pupils reactive, visual ward seem full; cannot do funduscopic at bedside. Face is symmetrical. Tongue midline. Motor-clarke, she had some mild residual weakness on the right side. Her tone does not seem severely spastic. She is slightly slower on [id number] on the right. DTRs are brisk. Sensory overall normal to light touch, temperature. Her gait is withheld. She does use a walker. Defer to PT for safety issues. LABORATORY DATA: Labs are reviewed. CBC on 04/24/2018: Hemoglobin is 10.8. Chemistries: CO2 32.7, GFR 65. Hemoglobin A1c 6.6. CK 201. IMAGING: As far as imaging: She has had a head CT on 04/17/2018. Fortunately, I cannot review it due to the computer issue. Of note, she states she has a bladder stimulator, but states that she can have an MRI from the neck up. I am not sure that is entirely accurate. IMPRESSION. Overall, this is a 42-year-old woman with a history of multiple sclerosis at least for 1+ year diagnosed by Neurology in this area. She thinks she has had what she describes as an exacerbation already on Aubagio. I would recommend at this point in time when she is discharged, she can either followup with Dr. Hicks and have her taken off Aubagio officially. There is a way that it could be accelerated as far as elimination with either cholestyramine or activated charcoal and then consideration will be trying her on another medicine such as Tecfidera would be another option. If she does not want to followup with Dr. Hicks, she can followup with Dr. Roberto in the office. She may be a candidate if, inclusion protocol allows it, for a research trial. But at this point in time, no other medicines will be initiated here in the hospital as they are not readily available. Continue her gabapentin if needed and her other medications, but I did discuss with her that she might not be a good candidate for steroids any longer and if she thinks she has had an exacerbation, then Aubagio may not be the best medicine for her. Would recommend her following up with either Neurology, Dr. Roberto or Dr. Hicks for further care. MD NICKI Leung/pk/aayush , 02:02 PM , 02:11 PM
[2018-05-01] MEDS: Montelukast 10 MG Tablet PO SCH (17:18)
[2018-05-01] MEDS: QUEtiapine 100 MG Tablet PO SCH (20:13)
[2018-05-01] MEDS: traZODone 50 MG Tablet PO SCH (20:14)
[2018-05-01] MEDS: amLODIPine 5 MG Tablet PO SCH (20:14)
[2018-05-01] MEDS: Prazosin HCl 1 MG Capsule PO SCH (20:14)
[2018-05-02 06:22] VITALS: BP 109/61; PULSE 106; RESP 16; TEMP 97.4; O2SAT 96
[2018-05-02] MEDS: Famotidine 20 MG Tablet PO SCH (08:40)
[2018-05-02] MEDS: lamoTRIgine 100 MG Tablet PO SCH (08:40)
[2018-05-02] MEDS: Gabapentin 400 MG Capsule PO SCH ×2 (08:41→12:44)
[2018-05-02] MEDS: Senna/Docusate Sodium 8.6/50 MG Tablet PO SCH (08:41)
[2018-05-02] MEDS: Baclofen 10 MG Tablet PO PRN (08:47)
--- NOTE | 2018-05-02 12:15 | P.DSPSY ---
Psychiatry Discharge Summary Inpatient Psychiatric care?: Yes Advance Directives: No Other Reason for Unknown: doesn't have one Mental Health Advance Directive: No Health Care Proxy: No - Admission Admission Date: April 25, 2018 16:43 Brief History: Late entry. The patient was seen April 25, 2018 The patient is a 42-year-old [facility] woman, domiciled with her mother and 3 kids in [place], single, unemployed at the moment, with a psychiatric history of bipolar disorder, anxiety, but no previous psychiatric hospitalizations, no previous suicide attempts, no history of self cutting behavior, outpatient care in [facility], she is on lamotrigine 400 mg , Wellbutrin 150 mg twice daily with good results, medical history hypertension and multiple sclerosis, who came to the hospital with right-sided weakness and recurrent falls. At baseline she has urinary incontinence and moderate right hemiplegia. Vertigo and headaches are part of her symptoms today and she says this typically has onset after a deficit in the past but is common with an MS exacerbation for her. She has a bladder stimulator implanted in this prohibits her from being able to obtain MRI studies. Possibility of MRI of brain at [place] (will discuss with neurology prior to any transfer). Etiology for her symptoms is likely related to her multiple sclerosis. She was seen by neurology who diagnosed MS exacerbation, was treated with methylprednisolone 250 mg every 6 hours and the patient showed good response and symptoms improve. However for the last 3 days the patient has developed new onset psychosis, with a significant paranoia, disorganized and pressured speech, auditory hallucinations, poor sleep, anxiety and mood lability. The patient got so paranoid that 2 days ago she left the hospital AMA. Family members are very concerned that the patient is very far from baseline, acting very bizarre, and at times not making any sense. Chart was reviewed. I got collateral information from her account Bernadette and also from her mother. They clarified that the patient is acting extremely bizarre, this is out of character for her, they did not feel that she is safe to be discharged. They said that she has 3 kids, one is 15, 16, 1 8 at home and the patient has been paranoid, stating that nurses wanted to kill her, that the TV is talking to her, that she is hearing people talking about her and seeing things and people that do not exist. They clarified that the patient has bipolar disorder, that she has been quite depressed in the past, and also very anxious, but never psychotic like this. On my psychiatric evaluation I find a patient that initially is calm, cooperative and pleasant. She says that she is feeling much better today. She tells me that the reason she is hospitalized is due to multiple sclerosis exacerbation, "I am feeling better and stronger". She initially reports to be in a good mood, positive, hopeful and motivated to continue medical treatment and get better. However, when I asked the patient if she feels safe here the patient breaks in tears, become extremely labile, incoherent, and start making accusation to the nurses and to the doctor stating that "because they cannot see what I think, they cannot understand my illness, and they prefer to talk about me and destroyed my reputation of my family reputation". Patient start crying profusely and yelling that she wants to go home. However, she was sensitive to verbal redirection and I was able to bring her back to the reality. She then started laughing quite inappropriately stating that "the problem is that I cannot concentrate in the jokes that you are making me". The patient seems to be insightful about her psychosis, she states that she knows that something is wrong with her and she does not want to continue having mental problems and is willing to be admitted in psychiatry and be treated. The patient is fully oriented x3, I cannot perceive any attention deficit, any fluctuation of consciousness at this moment. Patient reports that she is very anxious, and is sleeping very poorly at night. PPHx: psychiatric history of bipolar disorder, anxiety, but no previous psychiatric hospitalizations, no previous suicide attempts, no history of self cutting behavior, outpatient care in [facility], she is on lamotrigine 400 mg, Wellbutrin 150 mg twice daily with good results PMHx: medical history hypertension and multiple sclerosis, who came to the hospital with right-sided weakness and recurrent falls Substance Hx: Patient denies that use of illegal drugs Family Hx: No family psychiatric history Social Hx: The patient was born and raised in [place], living in the [facility] for about 30 years. She lives now with her mother and 3 kids, 50-year- old, 8-year-old, 16-year-old. She is single. Unemployed at the moment. Supported by her family. Voodoo mandaen. Her highest level of education is a bachelor degree in communications. Tobacco Use In Past 30 Days: No How Often Do You Have a Drink Containing Alcohol: Never Hospital Course: Patient's course of been marked by gradual improvement and then regression. This would appear to be associated with her multiple sclerosis and the incredible number of medications that are involved in her treatment. The patient on the 12th was very to go home with no difficulties whatsoever over the weekend and all of this changed and the patient was again reporting hallucinatory experiences as of yesterday. But is noted in my progress note she did not appear to be responding to internal stimuli. The staff is concerned that she might be malingering because of the rapid changes. Given the patient's long list of medical complaints it was reasonable to assume that the patient was fused about what was going on as those who have treated each complaint with a different medication and sometimes multiple medications. An effort was made on discharge to discontinue as many medications as were duplicates including some that were adverse to others. The patient has a very long list of as needed and these were discontinued or continued according to the likelihood of the patient having the medication at home and likely to take as needed's as previously indicated. Today the patient appears to be at baseline with most of her symptomatology related to her MS. Patient is encouraged to seek the attention of her outpatient team of physicians and strive to reduce the polypharmacy. - Discharge Discharge Date: 05/02/18 - Discharge Diagnosis (1) Unspecified psychosis Code(s): F29 - Unspecified psychosis not due to a substance or known physiological condition Status: Acute Discharge Disposition: Home - Discharge Instructions Discharge Diet: Diabetic Diet Activities You Can Perform: Weight Bearing As Tolerat Activities to Avoid: Lifting/Bending - Discharge Time > 30 minutes Mental Status Examination Appearance: Appropriate Consciousness: Alert, Vigilant Orientation: Person, Place, Date/Time Motor Activity: Normal gait (Patient has been seen without a walker walking normally.), Other (Today patient needs a walker, but is standing unsupported by the walker) Speech: Unremarkable Language: Adequate Fund of Knowledge: Adequate Attention and Concentration: Adequate Memory: Impaired (Patient is amnesic for the events leading to admission for psychosis.) Mood: Good Affect: Appropriate Thought Process & Associations: Logical Thought Content: Hallucinations (Questioned the validity) Hallucination Type: Auditory (Questionable validity) Delusion Type: Bizarre, Paranoid Suicidal Ideation: No Suicidal Plan: No Suicidal Intention: No Homicidal Ideation: No Homicidal Plan: No Homicidal Intention: No Insight: Poor Judgment: Impulsive (Extremely variable) Discharge/Advance Care Plan - Results Vital Signs: Last Vital Signs Temp 97.4 F L 05/02/18 06:00 Pulse 106 H 05/02/18 06:00 Resp 16 05/02/18 06:00 BP 109/61 05/02/18 06:00 Pulse Ox 96 05/02/18 06:00 Lab Results: Laboratory Results Hemoglobin A1c 6.6 % (4.3-6.0) H 04/26/18 07:58 Triglycerides 132 mg/dL (42-150) 04/26/18 07:58 Cholesterol 241 mg/dL (120-200) H 04/26/18 07:58 LDL Cholesterol, Calc 130 mg/dL (0-99) H 04/26/18 07:58 HDL Cholesterol 84.2 mg/dL (40.0-60.0) H 04/26/18 07:58 Summary of Procedures: none Pending Results: None - Medications Number of antipsychotic medications at discharge: 1 - Discharge Care Plan Goals to Promote Your Health: * To prevent worsening of your condition and complications * To maintain your health at the optimal level Directions to Meet Your Goals: Take your medications as prescribed Follow your dietary instruction Follow activity as directed Keep your appointments as scheduled Take your immunizations and boosters as scheduled If your symptoms worsen call your PCP, if no PCP go to Urgent Care Center or Emergency Room For 06/12 questions related to your inpatient stay or results of tests pending at discharge, please contact Dr. Kevin West MD at Smoking is Dangerous to Your Health. Avoid second hand smoking (1) Unspecified psychosis Qualifiers: Psychosis type: brief psychotic disorder Qualified Code(s): F23 - Brief psychotic disorder
== END 2018-05-02 13:22 | disposition home or self-care (01) ==
LOC: H4EA 16:43
PROVIDERS: ADMIT Psychiatry & Neurology Child & Adolescent Psychiatry; ATTEND Psychiatry & Neurology Child & Adolescent Psychiatry

== ENCOUNTER 2018-05-08 03:39 | Inpatient (IN) ==
[2018-05-08 04:23] LABS: Baso % (Auto) 0.5 % (0.0-2.0); Eos # (Auto) 0.1 th/mm3 (0.0-0.4); Eos % (Auto) 1.8 % (0.0-4.0); Hematocrit 34.7 % (35.0-46.0); Hemoglobin 11.3 gm/dL (11.6-15.3); Lymph # (Auto) 0.7 th/mm3 (1.0-4.8); Lymph % (Auto) 18.5 % (9.0-44.0); Mean Corpuscular HGB Conc 32.5 % (32.0-36.0); Mean Corpuscular Volume 89.2 fL (80.0-100.0); Mean Platelet Volume 8.6 fL (7.0-11.0); Mono # (Auto) 0.3 th/mm3 (0.0-0.9); Mono % (Auto) 6.9 % (0.0-8.0); Neut # (Auto) 2.7 th/mm3 (1.8-7.7); Neut % (Auto) 72.3 % (16.0-70.0); Platelet Count 105 th/mm3 (150-450); Red Cell Distribution Width 17.5 % (11.6-17.2); White Blood Count 3.8 th/mm3 (4.0-11.0)
--- NOTE | 2018-05-08 04:27 | XR ---
EXAM DATE: 05/08/2018 4:16 AM EST AGE/SEX: 42 years / Female INDICATIONS: Possible chest pain. CLINICAL DATA: This is the patient's initial encounter. Patient reports that signs and symptoms have been present for 1 day and indicates a pain score of 0/10. MEDICAL/SURGICAL HISTORY: Asthma. Multiple sclerosis. . Stimulator. COMPARISON: [facility] [place]ST 1V SINGLE AP, 04/13/2018. . FINDINGS: No significant focal pleural or parenchymal opacities. Cardiomediastinal contours are within normal l imits. Bony thorax is intact. CONCLUSION: 1. Negative portable chest. Electronically signed by: Marquis Medrano MD Board Certified Radiologist 05/08/2018 4:26 AM JIE T
[2018-05-08 04:43] LABS: Albumin 3.6 g/dL (3.4-5.0); Anion Gap 8 meq/L (5-15); Aspartate Aminotransferase 25 U/L (15-37); Blood Urea Nitrogen 7 mg/dL (7-18); Calcium 8.9 mg/dL (8.5-10.1); Carbon Dioxide 27.2 meq/L (21.0-32.0); Chloride 108 meq/L (98-107); Glomerular Filtration Rate 60 mL/min (>89); Glucose,Random 118 mg/dL (74-106); Lipase 37 U/L (73-393); Magnesium 1.8 mg/dL (1.5-2.5); Sodium 143 meq/L (136-145)
[2018-05-08 04:44] LABS: Alanine Aminotransferase 39 U/L (10-53)
[2018-05-08 04:46] LABS: Alkaline Phosphatase 80 U/L (45-117); Creatine Kinase 218 U/L (26-192)
[2018-05-08] MEDS ORDERED: Sod Chloride 0.9% Inj 1,000 ML IV.SIG ONE (04:58)
[2018-05-08 05:03] LABS: CKMB Percent 0.9 % (0.0-4.0); Creatine Kinase MB 1.9 ng/mL (0.5-3.6)
--- NOTE | 2018-05-08 05:05 | ED ---
HPI General Chief complaint: Altered Mental Status Stated complaint: Confusion Time Seen by Provider: 05/08/18 04:01 Source: patient Mode of arrival: EMS Limitations: altered mental status History of Present Illness HPI narrative: The patient is a 42 year old female who presents to the [facility] emergency department with a history of reportedly falling at home prior to arrival with altered mentation, therefore ambulance services were called. According to ambulance services the patient became more awake and alert and cooperative in route to this facility, however by the time that I arrived in the room the patient was again agitated. From reviewing the electronic medical record, the patient was recently admitted to the hospital related to acute psychosis and evaluated by the psychiatrist. The patient is unable or unwilling to provide any additional history at this time. She appears to be responding to auditory hallucinations. The only thing that the patient is consistently saying is "do not touch me". The patient prior to arrival was noted to have a heart rate of 140, blood sugar was 102 prior to arrival. Review of systems is limited in this patient due to her altered mentation. Related Data Home Medications Medication Instructions Recorded Confirmed amlodipine 5 mg PO HS 04/12/18 05/08/18 cholecalciferol (vitamin D3) 5,000 unit PO DAILY 04/12/18 05/08/18 [Vitamin D3] cyclosporine [Restasis] 1 drp OPHTHALMIC (EYE) Q12H 04/12/18 05/08/18 fluticasone [Allergy Relief 1 spray INTRANASAL DAILY 04/12/18 05/08/18 (fluticasone)] lamotrigine 200 mg PO BID 04/12/18 05/08/18 mometasone-formoterol [Dulera] 2 puff INHALATION Q12H 04/12/18 05/08/18 montelukast 10 mg PO QPM 04/12/18 05/08/18 pantoprazole 40 mg PO DAILY 04/12/18 05/08/18 ranitidine HCl 150 mg PO BID 04/12/18 05/08/18 sucralfate [Carafate] 1 g PO TID PRN 04/12/18 05/08/18 sumatriptan 20 mg INTRANASAL DAILY PRN 04/12/18 05/08/18 teriflunomide [Aubagio] 14 mg PO DAILY 04/12/18 05/08/18 trazodone 150 mg PO HS PRN 04/12/18 05/08/18 diclofenac sodium [Voltaren] 2 g TOPICAL QID 04/29/18 05/08/18 Previous Rx's Medication Instructions Recorded bupropion HCl [Wellbutrin SR] 150 mg PO BID 30 Days #60 each 05/02/18 gabapentin 800 mg PO TID 30 Days #90 tab 05/02/18 metformin [Glucophage] 500 mg PO BIDPC #30 tab 05/02/18 paroxetine HCl 20 mg PO DAILY 30 Days #30 tab 05/02/18 quetiapine 100 mg PO HS 30 Days #30 tab 05/02/18 Allergies Allergy/AdvReac Type Severity Reaction Status Date / Time oxycodone Allergy Intermediate RASH Verified 04/17/18 05:00 Review of Systems ROS Unobtainable ROS Unobtainable: unobtainable due to mental status PMFSH Medical History Medical History Chronic pain (Acute) Depression (Acute) Dry eyes (Acute) GERD (gastroesophageal reflux disease) (Acute) Hypertension (Acute) Migraine (Acute) Multiple sclerosis (Acute) Seasonal allergies (Acute) Urinary dysfunction (Acute) Vertigo (Acute) Surgical History Surgical History H/O section (Acute) History of cholecystectomy (Acute) Hx of breast biopsy (Acute) Hx of tonsillectomy (Acute) Family History Family History Other Osteoarthritis Social History Social History Substance History: Unable to Obtain Second Hand Smoke Exposure: No Smoking Status: Cognitive impairment How Often Do You Have a Drink Containing Alcohol: Unable to Obtain Recent Travel in [place] within the Last 8 Weeks: No Recent Out of Country Travel within the Last 8 Weeks: No Immunization History Tetanus Immunization: Unable to Assess Exam Const General: other (The patient is agitated, however in no other acute distress.) Nutritional Appearance: well nourished Orientation: alert, awake and oriented to person Limitations: behavioral limitations HENMT Head: normocephalic and atraumatic Nose: no nasal discharge and no epistaxis Mouth: moist mucous membranes Throat: posterior oropharynx normal and uvula midline Eyes Sclera: normal sclerae Pupils: PERRL Neck Neck: no meningeal signs, trachea midline and no JVD Resp Effort & Inspection: no use of accessory muscles Auscultation: clear to auscultation bilaterally Cardio Rate: tachycardic (Sinus tachycardia in the 120s, no pulse deficits to the extremities on simultaneous auscultation and palpation of her radial artery.) Rhythm: regular rhythm Heart Sounds: no gallops, no murmurs and no rubs GI Inspection: non-distended Palpation: soft, no hepatosplenomegaly and nontender Back/Spine/Pelvis Back: no CVA tenderness Skin General: dry skin (warm) Neuro General: alert, awake, oriented (Person, however the patient refuses to state any answers to other orientation questioning) and other (The patient is uncooperative with formal neurologic testing, however she has no evidence of facial asymmetry. She is moving all extremities spontaneously with 5/5 strength and has intact sensation over all dermatomes.) Speech: speech normal Motor: no movement abnormalities noted Extrem General: normal to inspection, no clubbing, no cyanosis and no edema Psych Mood: irritable mood and other (Intermittently yelling) Affect: irritable affect Judgment: limited Course Initial Documented Vital Signs Pulse Rate 130 H 05/08/18 03:42 Respiratory Rate 17 05/08/18 03:42 Blood Pressure 129/83 05/08/18 03:42 Pulse Oximetry 96 05/08/18 03:42 Last Documented Vital Signs Pulse Rate 130 H 05/08/18 03:42 Respiratory Rate 17 05/08/18 03:42 Blood Pressure 129/83 05/08/18 03:42 Pulse Oximetry 98 05/08/18 04:40 Medical Decision Making MDM Narrative Medical decision making narrative: During the course of the patient's emergency department visit, the patient's history, examination, and differential diagnosis were reviewed with the patient. The patient was placed on a director of cardiac cath lab with oximetry and frequent blood pressure monitoring. The patient had IV access obtained and blood work sent for analysis. Diagnostic evaluation was started regarding the patient's altered mentation. The patient's electronic medical record was reviewed and the patient was recently admitted with similar symptoms and evaluated by psychiatry. The patient was initially provided normal saline 1 L IV fluid bolus, Ativan 1 mg IV. The patient's diagnostic studies are remarkable for a white count of 3.8, hemoglobin 11.3, platelets 105 with 72.3 neutrophils, PT PTT were recently checked on April 23 and call, unremarkable, therefore this was not rechecked at this time. D-dimer is 0.37 decreasing the likelihood of pulmonary embolism in this patient with no other significant risk factors. Chemistries remarkable for chloride of 108, creatinine 1.18, GFR of 60, glucose 118, cardiac enzymes are within normal limits. Lipase 37. Urine drug screen is negative. Alcohol level is less than 3. A chest x-ray showed no acute abnormality. CT scan of the brain showed no acute abnormality. On review of the electronic medical record reveals that the patient was recently admitted with similar symptoms and did have an evaluation by the neurologist as well as the psychiatrist. It appears that the patient was started on Seroquel, however it is unclear whether the patient has been taking this. The patient has been medically cleared for evaluation by the psychiatric screener and psychiatrist due to acute psychosis. Medical Screen Exam Complete: Yes Emergency Medical Condition: Yes Medical Records Medical records reviewed: Yes I reviewed the patient's medical records. Lab Data Lab results reviewed: Yes I reviewed the patient's lab results. Result diagrams: 05/08/18 04:05 05/08/18 04:05 POC Results POC Urine Results Negative Lab Results 05/08/18 05/08/18 05/08/18 Range/Units 04:05 04:05 04:05 WBC 3.8 L (4.0-11.0) th/mm3 RBC 3.90 L (4.00-5.30) mil/mm3 Hgb 11.3 L (11.6-15.3) gm/dL Hct 34.7 L (35.0-46.0) % MCV 89.2 (80.0-100.0) fL MCH 29.0 (27.0-34.0) pg MCHC 32.5 (32.0-36.0) % RDW 17.5 H (11.6-17.2) % Plt Count 105 L D (150-450) th/mm3 MPV 8.6 (7.0-11.0) fL Neut % (Auto) 72.3 H (16.0-70.0) % Lymph % (Auto) 18.5 (9.0-44.0) % Cedar % (Auto) 6.9 (0.0-8.0) % Eos % (Auto) 1.8 (0.0-4.0) % Baso % (Auto) 0.5 (0.0-2.0) % Neut # (Auto) 2.7 (1.8-7.7) th/mm3 Lymph # (Auto) 0.7 L (1.0-4.8) th/mm3 Cedar # (Auto) 0.3 (0.0-0.9) th/mm3 Eos # (Auto) 0.1 (0.0-0.4) th/mm3 Baso # (Auto) 0.0 (0.0-0.2) th/mm3 WBC Differential . Differential Comment Auto diff final D-Dimer Quant (PE/DVT) 0.37 (0.00-0.50) mg/L FEU Sodium 143 (136-145) meq/L Potassium 4.0 (3.5-5.1) meq/L Chloride 108 H (98-107) meq/L Carbon Dioxide 27.2 (21.0-32.0) meq/L Anion Gap 8 (5-15) meq/L BUN 7 (7-18) mg/dL Creatinine 1.18 H (0.50-1.00) mg/dL Estimated GFR 60 L (>89) mL/min POC Glucose (68-110) mg/dl Random Glucose 118 H (74-106) mg/dL Calcium 8.9 (8.5-10.1) mg/dL Magnesium 1.8 (1.5-2.5) mg/dL Total Bilirubin 0.4 (0.2-1.0) mg/dL AST 25 (15-37) U/L ALT 39 (10-53) U/L Alkaline Phosphatase 80 (45-117) U/L Total Creatine Kinase 218 H (26-192) U/L CK-MB (CK-2) 1.9 (0.5-3.6) ng/mL CK-MB (CK-2) % 0.9 (0.0-4.0) % Troponin I Less than 0.02 L (0.02-0.05) ng/mL Total Protein 7.0 (6.4-8.2) g/dL Albumin 3.6 (3.4-5.0) g/dL Lipase 37 L (73-393) U/L Urine Opiates Screen (Neg) Ur Barbiturates Screen (Neg) Ur Amphetamines Screen (Neg) U Benzodiazepines Scrn (Neg) Urine Cocaine Screen (Neg) U Cannabinoids Screen (Neg) Serum Alcohol Less than 3 (0-5) mg/dL 05/08/18 05/08/18 Range/Units 04:05 04:50 WBC (4.0-11.0) th/mm3 RBC (4.00-5.30) mil/mm3 Hgb (11.6-15.3) gm/dL Hct (35.0-46.0) % MCV (80.0-100.0) fL MCH (27.0-34.0) pg MCHC (32.0-36.0) % RDW (11.6-17.2) % Plt Count (150-450) th/mm3 MPV (7.0-11.0) fL Neut % (Auto) (16.0-70.0) % Lymph % (Auto) (9.0-44.0) % Cedar % (Auto) (0.0-8.0) % Eos % (Auto) (0.0-4.0) % Baso % (Auto) (0.0-2.0) % Neut # (Auto) (1.8-7.7) th/mm3 Lymph # (Auto) (1.0-4.8) th/mm3 Cedar # (Auto) (0.0-0.9) th/mm3 Eos # (Auto) (0.0-0.4) th/mm3 Baso # (Auto) (0.0-0.2) th/mm3 WBC Differential Differential Comment D-Dimer Quant (PE/DVT) (0.00-0.50) mg/L FEU Sodium (136-145) meq/L Potassium (3.5-5.1) meq/L Chloride (98-107) meq/L Carbon Dioxide (21.0-32.0) meq/L Anion Gap (5-15) meq/L BUN (7-18) mg/dL Creatinine (0.50-1.00) mg/dL Estimated GFR (>89) mL/min POC Glucose 113 H (68-110) mg/dl Random Glucose (74-106) mg/dL Calcium (8.5-10.1) mg/dL Magnesium (1.5-2.5) mg/dL Total Bilirubin (0.2-1.0) mg/dL AST (15-37) U/L ALT (10-53) U/L Alkaline Phosphatase (45-117) U/L Total Creatine Kinase (26-192) U/L CK-MB (CK-2) (0.5-3.6) ng/mL CK-MB (CK-2) % (0.0-4.0) % Troponin I (0.02-0.05) ng/mL Total Protein (6.4-8.2) g/dL Albumin (3.4-5.0) g/dL Lipase (73-393) U/L Urine Opiates Screen Neg (Neg) Ur Barbiturates Screen Neg (Neg) Ur Amphetamines Screen Neg (Neg) U Benzodiazepines Scrn Neg (Neg) Urine Cocaine Screen Neg (Neg) U Cannabinoids Screen Neg (Neg) Serum Alcohol (0-5) mg/dL Imaging Data Radiologist's impression: Chest X-Ray 05/08/18 04:01 CONCLUSION: 1. Negative portable chest. Head CT 05/08/18 04:58 CONCLUSION: 1. No acute intracranial abnormality. . ECG Data Attestation: I personally reviewed and interpreted this ECG as follows: Interpretation: The patient had an EKG done on arrival. The patient's EKG reveals a sinus tachycardia rate of 130, QRS duration 65 ms, QTC [address] segment elevation, T waves are inverted in lead III. Discharge Plan Discharge Disposition Patient Disposition: Sign Out(ED Internal Use Only) Discharge Details Diagnosis: Psychosis Physicians Team ED Provider: Jyothi Cruz Primary Care Provider: UNKNOWN, Rxs /Orders / Referrals /Forms Prescriptions: No Action lamotrigine 200 mg Tablet 200 mg PO BID RF: 0 sucralfate [Carafate] 1 gram Tablet 1 g PO TID PRN (Reason: gerd) RF: 0 amlodipine 5 mg Tablet 5 mg PO HS RF: 0 pantoprazole 40 mg Tablet,Delayed Release (Dr/Ec) 40 mg PO DAILY RF: 0 trazodone 150 mg Tablet 150 mg PO HS PRN (Reason: Sleep) RF: 0 ranitidine HCl 150 mg Tablet 150 mg PO BID RF: 0 montelukast 10 mg Tablet 10 mg PO QPM RF: 0 sumatriptan 20 mg/actuation [facility],Non-Aerosol 20 mg Intranasal DAILY PRN (Reason: migraines) RF: 0 fluticasone [Allergy Relief (fluticasone)] 50 mcg/actuation [facility],Suspension 1 spray INTRANASAL DAILY RF: 0 cyclosporine [Restasis] 0.05 % [place]rette 1 drp OPHTHALMIC (EYE) Q12H RF: 0 cholecalciferol (vitamin D3) [Vitamin D3] 5,000 unit Tablet 5,000 unit PO DAILY RF: 0 mometasone-formoterol [Dulera] 200-5 mcg/actuation Hfa Aerosol Inhaler 2 puff INHALATION Q12H RF: 0 teriflunomide [Aubagio] 14 mg Tablet 14 mg PO DAILY RF: 0 diclofenac sodium [Voltaren] 1 % Gel 2 g TOPICAL QID RF: 0 metformin [Glucophage] 500 mg Tablet 500 mg PO BIDPC Qty: 30 RF: 0 quetiapine 100 mg Tablet 100 mg PO HS 30 Days Qty: 30 RF: 0 paroxetine HCl 20 mg Tablet 20 mg PO DAILY 30 Days Qty: 30 RF: 0 bupropion HCl [Wellbutrin SR] 150 mg Tablet Sustained-Release 12 Hr 150 mg PO BID 30 Days Qty: 60 RF: 0 gabapentin 800 mg Tablet 800 mg PO TID 30 Days Qty: 90 RF: 0 Status ED Status: Medically Cleared
[2018-05-08 05:19] LABS: Amphetamine Screen,Urine Neg (Neg); Barbiturate Screen,Urine Neg (Neg); Cannabinoid Screen,Urine Neg (Neg); Cocaine Screen,Urine Neg (Neg)
[2018-05-08 05:20] LABS: Opiate Screen,Urine Neg (Neg)
--- NOTE | 2018-05-08 05:29 | CT ---
EXAM DATE: 05/08/2018 5:26 AM EST AGE/SEX: 42 years / Female INDICATIONS: Altered mental status. CLINICAL DATA: This is the patient's initial encounter. Patient reports that signs and symptoms have been present for 1 day and indicates a pain score of 0/10. MEDICAL/SURGICAL HISTORY: Vertigo. Multiple sclerosis. Hypertension. Migraine. None. RADIATION DOSE: 56.35 CTDI (mGy) [place]PAR[place]: [facility] [place]. . TECHNIQUE: CT of the head without contrast. Using automated exposure control and adjustment of the mA and/or kV according to patient size, radiation dose was kept as low as reasonably achievable to ob tain optimal diagnostic quality images. DICOM format image data is available electronically for revi ew and comparison. FINDINGS: Cerebrum: The ventricles are normal for age. No evidence of midline shift, mass lesion, hemorrhage o r acute infarction. No extraaxial fluid collections are seen. Posterior Fossa: The cerebellum and brainstem are intact. The 4th ventricle is midline. The cerebe llopontine angle is unremarkable. Extracranial: The visualized portion of the orbits is intact. Skull: The calvaria is intact. No evidence of skull fracture. CONCLUSION: 1. No acute intracranial abnormality. . Electronically signed by: Marquis Medrano MD Board Certified Radiologist 05/08/2018 5:28 AM JIE Menjivar
[2018-05-08] MEDS ORDERED: Aluminum/Magnesium/Simethacone Susp 30 ML UDC PO PRN (10:07)
[2018-05-08] MEDS ORDERED: Sucralfate 1 GM Tablet PO PRN (10:13)
[2018-05-08] MEDS ORDERED: MOMETASONE FORMOTEROL INHALATION SCH (10:15)
[2018-05-08] MEDS ORDERED: Non-Formulary Drug (Cyclosporine [Restasis] 1 DRP) EACH EYE SCH (10:15)
--- NOTE | 2018-05-08 11:38 | ECG ---
Date Performed: 05/08/2018 Time Performed: 03:44:51 PTAGE: 42 years EKG: SINUS TACHYCARDIA NONSPECIFIC T-WAVE ABNORMALITY ABNORMAL RHYTHM ECG PREVIOUS TRACING : 04/17/2018 10.53 Since the previous tracing, no significant change noted DOCTOR: Audie Guerrero Interpretating Date/Time 05/08/2018 11:36:22
--- NOTE | 2018-05-08 12:49 | ED ---
HPI - Psych - General Source: patient Mode of arrival: EMS Limitations: altered mental status - History of Present Illness MD complaint: altered mental status Onset (ago): day(s) Duration: changing over time, getting worse, resolved prior to arrival Relieving factors: medication Exacerbating factors: none Associated psychiatric symptoms: auditory hallucinations, delusions Associated symptoms: denies other symptoms Treatments prior to arrival: none - General Chief Complaint: Altered Mental Status Stated Complaint: Confusion Time Seen by Provider: 05/08/18 04:01 - History of Present Illness HPI Narrative: This is a 42-year old single, -[place] female who presents to this facility via ambulance for recent fall with altered mental status. She is known to this facility and department as she was previously admitted from04/25- 05/02/18 for acute psychosis. Reviewed electronic medical record, labs, discussed case with staff. Patient was assessed in room C 34 with PRIYANKA Hong present. Patient was found awake, alert, and oriented to self only. Her speech is clear, logical, organized, of normal aditi but extremely low in volume. She is somewhat disheveled and clad in [facility]. She presents as paranoid and vigilant, asking to see our identification badges. When asked if she is afraid somebody is out to get her she begins tearing up. She denies being suicidal or homicidal. When asked if she is experiencing auditory or visual hallucination she states, "I do not want to answer that please". She was observed through the glass door talking to herself as if internally stimulated. When asked how she is feeling she states, "I am just altered". She goes on to state that she believes it is from her medication, "the Seroquel". She lives with her mother and 3 children. Her mother spoke with the medical nurse and reported that she feels the patient's been this way since she was started on steroids. The patient is a multiple sclerosis patient. She reports that she walks with a rolling walker and is incontinent of urine. (Aleta Hernadez) - Related Data Home Medications Medication Instructions Recorded Confirmed amlodipine 5 mg PO HS 04/12/18 05/08/18 cholecalciferol (vitamin D3) 5,000 unit PO DAILY 04/12/18 05/08/18 [Vitamin D3] cyclosporine [Restasis] 1 drp OPHTHALMIC (EYE) Q12H 04/12/18 05/08/18 fluticasone [Allergy Relief 1 spray INTRANASAL DAILY 04/12/18 05/08/18 (fluticasone)] lamotrigine 200 mg PO BID 04/12/18 05/08/18 mometasone-formoterol [Dulera] 2 puff INHALATION Q12H 04/12/18 05/08/18 montelukast 10 mg PO QPM 04/12/18 05/08/18 pantoprazole 40 mg PO DAILY 04/12/18 05/08/18 ranitidine HCl 150 mg PO BID 04/12/18 05/08/18 sucralfate [Carafate] 1 g PO TID PRN 04/12/18 05/08/18 sumatriptan 20 mg INTRANASAL DAILY PRN 04/12/18 05/08/18 teriflunomide [Aubagio] 14 mg PO DAILY 04/12/18 05/08/18 trazodone 150 mg PO HS PRN 04/12/18 05/08/18 diclofenac sodium [Voltaren] 2 g TOPICAL QID 04/29/18 05/08/18 Previous Rx's Medication Instructions Recorded bupropion HCl [Wellbutrin SR] 150 mg PO BID 30 Days #60 each 05/02/18 gabapentin 800 mg PO TID 30 Days #90 tab 05/02/18 metformin [Glucophage] 500 mg PO BIDPC #30 tab 05/02/18 paroxetine HCl 20 mg PO DAILY 30 Days #30 tab 05/02/18 quetiapine 100 mg PO HS 30 Days #30 tab 05/02/18 Allergies Allergy/AdvReac Type Severity Reaction Status Date / Time oxycodone Allergy Intermediate RASH Verified 04/17/18 05:00 Review of Systems All other systems reviewed negative except as stated in HPI PMFSH - History History Provided By: Documentation Engineer / EMT - Medical History Medical History: Medical History (Last Reviewed 05/08/18 @ 13:15 by SOSA Arriola) Chronic pain Depression Dry eyes GERD (gastroesophageal reflux disease) Hypertension Migraine Multiple sclerosis Seasonal allergies Urinary dysfunction Vertigo - Surgical History Surgical History: Surgical History (Last Reviewed 05/08/18 @ 13:15 by SOSA Arriola) H/O section History of cholecystectomy Hx of breast biopsy Hx of tonsillectomy - Family History Family History: Family History (Last Reviewed 05/08/18 @ 05:02 by Jyothi Cruz MD) Other Osteoarthritis - Tobacco History Second Hand Smoke Exposure: No Smoking Status: Cognitive impairment - Alcohol History How Often Do You Have a Drink Containing Alcohol: Unable to Obtain - Substance Use History Substance History: Unable to Obtain - Travel History Recent Travel in the [place] Within the Last 8 Weeks: No Recent Travel Out of the Country Within the Last 8 Weeks: No - Immunization History Tetanus Immunization: Unable to Assess Psychiatric History - Psychiatric History Psychiatric Treatment History: History of Psychiatric Treatment History of Inpatient Treatment: Yes Firearms in Home: No - Psychiatric History Reported history of bipolar disorder and anxiety. 1 previous inpatient hospitalization at this facility this month. She denies previous suicide attempts and self-injurious behavior. She is treated outpatient at [facility]. (Aleta Hernadez) Physical Exam - General Limitations: altered mental status General appearance: alert - Head Head exam: atraumatic, normocephalic - Psychiatric Psychiatric exam: Present: anxious Mental Status Examination Appearance: Disheveled Consciousness: Alert, Vigilant Orientation: Person Motor Activity: Other (Uses a rolling walker) Speech: Other (Very soft-spoken) Language: Adequate Fund of Knowledge: Inadequate Attention and Concentration: Easily distracted Memory: Impaired Mood: Anxious Affect: Anxious Thought Process & Associations: Disorganized Thought Content: Hallucinations, Delusional Hallucination Type: Auditory Delusion Type: Paranoid Suicidal Ideation: No Suicidal Plan: No Suicidal Intention: No Homicidal Ideation: No Homicidal Plan: No Homicidal Intention: No Insight: Poor Judgment: Poor Initial Documented Vital Signs Pulse Rate 130 H 05/08/18 03:42 Respiratory Rate 17 05/08/18 03:42 Blood Pressure 129/83 05/08/18 03:42 Pulse Oximetry 96 05/08/18 03:42 Last Documented Vital Signs Pulse Rate 105 H 05/08/18 11:32 Respiratory Rate 20 05/08/18 11:32 Blood Pressure 122/67 05/08/18 11:32 Pulse Oximetry 97 05/08/18 11:32 MDM - Psych - Diagnosis (1) Unspecified psychosis Code(s): F29 - Unspecified psychosis not due to a substance or known physiological condition Status: Acute - Differential Diagnosis Likely: acute psychosis, bipolar disorder - Lab Data Result diagrams: 05/08/18 04:05 05/08/18 04:05 - [facility] Narrative Medical decision making narrative: Given the patient's paranoid state of mind and her obvious internal stimulation I am admitting her to a locked inpatient psychiatric unit for further evaluation and treatment as deemed necessary. In her present state, she is unable to provide care for self and is reticent to let others care for her. Her EKG showed a prolonged corrected QT interval of 449. Given her recent falls , I am currently holding her psychotropics pending the results from a repeat EKG. The on-call psychiatrist is aware. (Aleta Hernadez) - Lab Data POC Results POC Urine Results Negative Lab Results 05/08/18 05/08/18 05/08/18 Range/Units 04:05 04:05 04:05 WBC 3.8 L (4.0-11.0) th/mm3 RBC 3.90 L (4.00-5.30) mil/mm3 Hgb 11.3 L (11.6-15.3) gm/dL Hct 34.7 L (35.0-46.0) % MCV 89.2 (80.0-100.0) fL MCH 29.0 (27.0-34.0) pg MCHC 32.5 (32.0-36.0) % RDW 17.5 H (11.6-17.2) % Plt Count 105 L D (150-450) th/mm3 MPV 8.6 (7.0-11.0) fL Neut % (Auto) 72.3 H (16.0-70.0) % Lymph % (Auto) 18.5 (9.0-44.0) % [place] % (Auto) 6.9 (0.0-8.0) % Eos % (Auto) 1.8 (0.0-4.0) % Baso % (Auto) 0.5 (0.0-2.0) % Neut # (Auto) 2.7 (1.8-7.7) th/mm3 Lymph # (Auto) 0.7 L (1.0-4.8) th/mm3 [place] # (Auto) 0.3 (0.0-0.9) th/mm3 Eos # (Auto) 0.1 (0.0-0.4) th/mm3 Baso # (Auto) 0.0 (0.0-0.2) th/mm3 WBC Differential . Differential Comment Auto diff final D-Dimer Quant (PE/DVT) 0.37 (0.00-0.50) mg/L FEU Sodium 143 (136-145) meq/L Potassium 4.0 (3.5-5.1) meq/L Chloride 108 H (98-107) meq/L Carbon Dioxide 27.2 (21.0-32.0) meq/L Anion Gap 8 (5-15) meq/L BUN 7 (7-18) mg/dL Creatinine 1.18 H (0.50-1.00) mg/dL Estimated GFR 60 L (>89) mL/min POC Glucose (68-110) mg/dl Random Glucose 118 H (74-106) mg/dL Calcium 8.9 (8.5-10.1) mg/dL Magnesium 1.8 (1.5-2.5) mg/dL Total Bilirubin 0.4 (0.2-1.0) mg/dL AST 25 (15-37) U/L ALT 39 (10-53) U/L Alkaline Phosphatase 80 (45-117) U/L Total Creatine Kinase 218 H (26-192) U/L CK-MB (CK-2) 1.9 (0.5-3.6) ng/mL CK-MB (CK-2) % 0.9 (0.0-4.0) % Troponin I Less than 0.02 L (0.02-0.05) ng/mL Total Protein 7.0 (6.4-8.2) g/dL Albumin 3.6 (3.4-5.0) g/dL Lipase 37 L (73-393) U/L Urine Opiates Screen (Neg) Ur Barbiturates Screen (Neg) Ur Amphetamines Screen (Neg) U Benzodiazepines Scrn (Neg) Urine Cocaine Screen (Neg) U Cannabinoids Screen (Neg) Serum Alcohol Less than 3 (0-5) mg/dL 05/08/18 05/08/18 Range/Units 04:05 04:50 WBC (4.0-11.0) th/mm3 RBC (4.00-5.30) mil/mm3 Hgb (11.6-15.3) gm/dL Hct (35.0-46.0) % MCV (80.0-100.0) fL MCH (27.0-34.0) pg MCHC (32.0-36.0) % RDW (11.6-17.2) % Plt Count (150-450) th/mm3 MPV (7.0-11.0) fL Neut % (Auto) (16.0-70.0) % Lymph % (Auto) (9.0-44.0) % [place] % (Auto) (0.0-8.0) % Eos % (Auto) (0.0-4.0) % Baso % (Auto) (0.0-2.0) % Neut # (Auto) (1.8-7.7) th/mm3 Lymph # (Auto) (1.0-4.8) th/mm3 [place] # (Auto) (0.0-0.9) th/mm3 Eos # (Auto) (0.0-0.4) th/mm3 Baso # (Auto) (0.0-0.2) th/mm3 WBC Differential Differential Comment D-Dimer Quant (PE/DVT) (0.00-0.50) mg/L FEU Sodium (136-145) meq/L Potassium (3.5-5.1) meq/L Chloride (98-107) meq/L Carbon Dioxide (21.0-32.0) meq/L Anion Gap (5-15) meq/L BUN (7-18) mg/dL Creatinine (0.50-1.00) mg/dL Estimated GFR (>89) mL/min POC Glucose 113 H (68-110) mg/dl Random Glucose (74-106) mg/dL Calcium (8.5-10.1) mg/dL Magnesium (1.5-2.5) mg/dL Total Bilirubin (0.2-1.0) mg/dL AST (15-37) U/L ALT (10-53) U/L Alkaline Phosphatase (45-117) U/L Total Creatine Kinase (26-192) U/L CK-MB (CK-2) (0.5-3.6) ng/mL CK-MB (CK-2) % (0.0-4.0) % Troponin I (0.02-0.05) ng/mL Total Protein (6.4-8.2) g/dL Albumin (3.4-5.0) g/dL Lipase (73-393) U/L Urine Opiates Screen Neg (Neg) Ur Barbiturates Screen Neg (Neg) Ur Amphetamines Screen Neg (Neg) U Benzodiazepines Scrn Neg (Neg) Urine Cocaine Screen Neg (Neg) U Cannabinoids Screen Neg (Neg) Serum Alcohol (0-5) mg/dL
[2018-05-08] MEDS: DICLOFENAC SODIUM 2 GM TOPICAL SCH ×2 (13:42→17:19)
[2018-05-08] MEDS: Montelukast 10 MG Tablet PO SCH (17:19)
[2018-05-08] MEDS ORDERED: [UNRECOGNIZED DRUG - OTHER] EACH EYE SCH (21:00)
[2018-05-08] MEDS ORDERED: Non-Formulary Drug (Lamotrigine [Lamotrigine] 200 MG) PO SCH (21:00)
[2018-05-08] MEDS ORDERED: [UNRECOGNIZED DRUG - OTHER] TOPICAL SCH (21:00)
[2018-05-08] MEDS ORDERED: amLODIPine 5 MG Tablet PO SCH (21:00)
[2018-05-08] MEDS ORDERED: OPTH EACH EYE SCH (21:00)
[2018-05-08] MEDS ORDERED: PT DULERA SCH (21:15)
[2018-05-08] MEDS: Famotidine 20 MG Tablet PO SCH (21:38)
[2018-05-08] MEDS: lamoTRIgine 100 MG Tablet PO SCH (21:38)
[2018-05-09] MEDS: Baclofen 10 MG Tablet PO ONE ×2 (01:27→01:29)
[2018-05-09 08:58] LABS: Calcium 8.7 mg/dL (8.5-10.1); Carbon Dioxide 22.9 meq/L (21.0-32.0); Potassium 3.8 meq/L (3.5-5.1)
[2018-05-09] MEDS ORDERED: TERIFLUNOMIDE 14 MG PO SCH (09:00)
[2018-05-09] MEDS ORDERED: Non-Formulary Drug (Cholecalciferol (Vitamin D3) [Vitamin D3] 5,000 UNIT) PO SCH (09:00)
[2018-05-09 09:01] LABS: Chol/HDL Ratio 2.39 Ratio; HDL Cholesterol 84.9 mg/dL (40.0-60.0)
[2018-05-09] MEDS: Gabapentin 400 MG Capsule PO SCH ×2 (09:36→14:23)
[2018-05-09] MEDS: Famotidine 20 MG Tablet PO SCH (09:36)
[2018-05-09] MEDS: lamoTRIgine 100 MG Tablet PO SCH (09:36)
[2018-05-09 11:18] LABS: Hemoglobin A1c 6.1 % (4.3-6.0)
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
[2018-05-09] MEDS ORDERED: QUEtiapine 100 MG Tablet PO SCH ×2 (21:00)
[2018-05-10] MEDS: Famotidine 20 MG Tablet PO SCH ×3 (05:45→20:11)
[2018-05-10] MEDS: amLODIPine 10 MG Tablet PO SCH ×2 (05:45→20:11)
[2018-05-10] MEDS: Montelukast 10 MG Tablet PO SCH ×2 (05:45→20:10)
[2018-05-10] MEDS: lamoTRIgine 100 MG Tablet PO SCH ×3 (05:45→20:11)
--- NOTE | 2018-05-10 12:00 | P.PNPSY ---
Subjective Remarks: Patient seen for follow up; chart reviewed. Discussion with nursing staff reported that patient disrobed, noted to be agitated and behaving as if in restraints and refusing to cooperate with staff and stating that her doctor is held illegally in this building. Patient was heard talking to self and yelling in the room when attempted to be approached for interview patient refused to allow bid writer to engage in interview. Patient's repeatedly stating that her doctor is Dr. Cook and that he is being held illegally in this room and that her being in the hospital in infringing on her mandaen rights. Patient is noted to be talking to self unable to be redirected and required ETO which patient was given olanzapine 10 mg IM x1. Collateral information obtained from patient's mother stated that she had a difficult visit yesterday as patient was asking her to leave but did remain throughout the entirety of the visiting hours. She states that the patient was noted to be irritable and had concerns of patient's behavior which she had noted at home to resume upon discharge. She agrees to be patient's healthcare surrogate and guardian advocate during this admission as patient will be petition for involuntary hospitalization due to current psychosis. Review of Systems All other systems reviewed negative except as stated in HPI Mental Status Examination Appearance: Other (Disrobed and nude in bed) Consciousness: Alert, Vigilant Orientation: Person, Place, Date/Time Motor Activity: Other (Uses a rolling walker) Speech: Other (low volume) Language: Adequate Fund of Knowledge: Inadequate Attention and Concentration: Easily distracted Memory: Impaired Mood: Anxious, Irritable Affect: Irritable, Labile, Anxious Thought Process & Associations: Linear Thought Content: Hallucinations (talking to self ) Hallucination Type: Auditory (denies but noted to be resonding to internal stimuli) Delusion Type: None Suicidal Ideation: No Suicidal Plan: No Suicidal Intention: No Homicidal Ideation: No Homicidal Plan: No Homicidal Intention: No Insight: Fair Judgment: Impulsive Assessment and Plan - Assessment (1) Unspecified psychosis Code(s): F29 - Unspecified psychosis not due to a substance or known physiological condition Status: Acute - Plan Plan: Patient at this time noted to be labile, disorganized, delusional, paranoid and requiring redirection ETO olanzapine 10 mg IM for agitation. Patient will require further stabilization. Petition for involuntary hospitalization started , second opinion requested. Patient's mother will serve healthcare surrogate and guardian advocate for this admission. Discontinue quetiapine and start olanzapine 5 mg p.o. twice daily. We will order repeat EKG as patient's QTc interval was 495 ms. Continue to monitor mood and behavior. Discharge planning in progress. Justification for Continued Inpatient Stay: At risk of further decompensation at lower level care. (1) Unspecified psychosis Qualifiers: Psychosis type: brief psychotic disorder Qualified Code(s): F23 - Brief psychotic disorder
--- NOTE | 2018-05-10 12:54 | MB ---
cc: Mackenzie Jurado MD DATE: 05/10/2018 REASON FOR CONSULTATION: History of MS. HISTORY OF PRESENT ILLNESS: This is a 42-year-old woman I saw about a week ago, had questionable MS exacerbation, treated with steroids, but then became psychotic, was transferred to psychiatry, improved, and then went home. Apparently, she was at home and was doing quite a bit around the house, apparently was brought in because she was having some hallucinations. She lives with her mother and her 3 children. Apparently, the mother stated to nursing staff that she has been this way since she started the steroids, but she is no longer on steroids for at least a week. The patient has a history of MS, follows with Neurology on [facility], has a history of depression, hypertension. HOME MEDICATIONS: Amlodipine, vitamin D3, cyclosporin, Restasis for her eyes, fluticasone, lamotrigine, Dulera, montelukast, pantoprazole, ranitidine, carafate, sumatriptan for migraines, Aubagio, trazodone, and Voltaren. ALLERGIES: OXYCONTIN. PHYSICAL EXAMINATION: On exam, the patient is lying in bed naked, covered with a bedsheet, looking straight up at the ceiling, constantly repeating the same thing about who her psychiatrist is, and, then, at times, stops and repeats her mother's name. Does not look at examiner. Does not follow commands. Is in a psychotic event, currently limited exam. LABORATORY DATA: Reviewed. White count 3.8, hemoglobin 11.3, her platelets are 105,000. D-dimer is negative. Chemistries show A1c hemoglobin 6.1. LDL 102. Cholesterol 203. Lipase 37. Tox screen was negative. IMAGING: CT head on admission was negative. Chest x-ray negative. ASSESSMENT AND PLAN: A 42-year-old woman with history of multiple sclerosis. I do not think this is an exacerbation. She had imaging last time she was here. I actually do not see any imaging from last visit; however, she was, at that time, placed on steroids, I believe for 3 days, and then taken off. Her neurologist is Dr. Hicks. At this point, I would just continue to treat her psychosis. Of note, the patient cannot have an MRI, due to the fact that she has a bladder stimulator; however, I know in [place] they can do an MRI of the brain at , but at this point, this is not an MS exacerbation. That can be done as an outpatient. I will continue her Aubagio if her mother can bring it. Continue treating her for her psychosis. I do not believe she has any steroids left in her system. It is well over a week since she has been discharged. Steroids may have contributed to exacerbating her psychiatric symptoms, but I do not believe that they are the culprit at this point in time. Continue current psychiatric treatment, and have her follow up with her neurologist as an outpatient. Otherwise, from my perspective, at this point, no other imaging can be done. MD NICKI Leung/stephanie , 12:28 PM , 12:37 PM
--- NOTE | 2018-05-10 13:55 | P.PNPSY ---
Subjective Chief Complaint: Psychosis Remarks: The patient was seen for the purpose of providing a second opinion to the Rogers act order. Chart reviewed to include emergency department paperwork and the attending's history and physical. Patient discussed with nursing staff; we reviewed the patient's mood, thoughts, and behaviors since arrival to the unit. Patient was initially calm and cooperative overnight but this morning she became increasingly agitated and disorganized. The patient was seen at bedside today after lunch she was seen laying flat on her bed arms at her side, looking straight ahead, and perseverating on the following sentence, "Dr. Cook is my only legal mental health veterans contact representative and is able to speak on my behalf. "Attempts to distract her or interrupt her and engage in conversation were met by repeated Bhanu reciting those statements and increase in the volume. Mental Status Examination Appearance: Other (In hospital gown) Consciousness: Alert Motor Activity: Other (Unable to assess) Speech: Pressured Language: Perseveration Fund of Knowledge: Inadequate Attention and Concentration: Other (The patient refused to allow provider to distract her as she continued to perseverate) Memory: Impaired Affect: Anxious Thought Process & Associations: Disorganized Hallucination Type: Other (Unable to assess) Delusion Type: Other (Unable to assess) Suicidal Ideation: No (Unable to assess) Homicidal Ideation: No (Unable to assess) Insight: Poor Assessment and Plan - Assessment (1) Unspecified psychosis Code(s): F29 - Unspecified psychosis not due to a substance or known physiological condition Status: Acute - Plan Plan: Patient is a 42-year-old female with history of psychosis who was initially brought to the ER under a Rogers act order due to complaints by family that she was acting erratically aggressively. Today the patient is demonstrating disorganized thoughts and behavior as she perseverates on a fixed idea and is uncooperative with further evaluations. She will require continued involuntary hospitalization in order to complete the psychiatric evaluation and mitigate risks of harm to self or others. Justification for Continued Inpatient Stay: Patient remains an elevated risk for self-harm by self neglect and will require further inpatient stabilization and preparation of a safe discharge plan. Moving patient to a less restrictive environment at this time may result in decompensation. (1) Unspecified psychosis Qualifiers: Psychosis type: brief psychotic disorder Qualified Code(s): F23 - Brief psychotic disorder
--- NOTE | 2018-05-10 14:27 | P.TTN ---
- Patient Problems Problems: 1. Discharge planning 2. Medication compliance 3. Knowledge deficit 4. Lack of coping skills - Progress Toward Goals Provider Present: Dr. Jodi Hale Provider Input: 05/10/2018; Patient will be retained until less anxious, at this time patient is paranoid and inapproprite. Doctor will discuss current status with family Nurse(s) Present: RN/Nani Nurse Input: 05/10/2018; per RN patient is anxious, extremely resistant to treatment, very aggressive and agitated. Refusing treatment Psychiatric Counselors Present: Yana Frey [facility] Psychiatric Therapist Input: 05/10/2018; patient will return to her mother's home when stable; counselor will ensure appropriate dc is in place with outpatient providers Group Spec/RT/OT/SINGH Present: FRANCISCO Strauss Group Spec/RT/OT/SINGH Input: 05/10/2018; counselor has been unable to attend groups due to mood/behavior - Documentation Teaching Recipient: Patient
[2018-05-10] MEDS: Gabapentin 300 MG Capsule PO SCH ×3 (15:43→20:10)
--- NOTE | 2018-05-10 16:55 | P.PNIM ---
Subjective Interval history: Patient sitting outside of her room in a chair. She is upset because she is being held here. She says this mornings episode was just confusion by the staff members here in the hospital. Physical Exam Vital signs: Vital Signs 05/09/18 17:43 05/09/18 18:01 05/09/18 20:00 Temperature 98.2 F Pulse Rate 110 H Respiratory Rate 20 Blood Pressure 168/80 H Pulse Oximetry 95 97 94 L 05/10/18 05:16 Temperature 97.2 F L Pulse Rate 96 H Respiratory Rate 20 Blood Pressure 116/57 L Pulse Oximetry 94 L Intake & Output 05/09/18 05/10/18 05/10/18 18:59 06:59 18:59 Intake Total 1200 / 1200 1460 / 1460 Balance 1200 / 1200 1460 / 1460 Intake: Oral 1200 / 1200 1460 / 1460 Other: # Voids 2 Narrative: Alert and oriented x 3 S1S2 CTA B/L Abd soft, nontender, normal bowel sounds. No edema of exts No focal neurological deficits. Results - Labs CBC & Chem 7: 05/08/18 04:05 05/09/18 07:55 Assessment and Plan - Plan This patient is a 42 y/o AA F with a dx of Multiple sclerosis on aubagio, unspecified psychosis, bipolar disorder. The patinet is admitted under the psychiatric unit for management after an episode at home where she says she was out of control according to her family. The patient says she does not remember the episode but was told she was screaming and running around out of control and the police were called by her family. The patient is currently calm and explaining the situation and says that she was not herself during that episode. 05/10/18 As per the nursing staff patient had a psychiatric episode this morning and required IM zyprexa. Currently being involuntarily held as per psych note. Blood pressure better controlled today. Continue norvasc. Neurology evaluated the patient and does not believe this is an exacerbation of MS. Continue Aubagio, patient's mother will bring the medication in. Continue management as per Psychiatry for Unspecified Psych Disorder/ Bipolar Disorder. Internal Medicine will sign off on the patient. Please call me if needed. 1. Multiple Sclerosis Patient has a diagnosis of multiple sclerosis which was diagnosed approximately one yr ago. She follows up with a neurologist in [place]. Currently she is on aubagio at home and is compliant with her medications. She says she occasionally uses a walker when ambulating at home. I recommend that she continue to take aubagio and currently doesn not appear to be in an exacerbation. She should have regular follow up with her neurologist for continued management of MS. 2. HTN Blood pressure elevated in the 150s systolic. Increase dose of Norvasc to 10mg q daily. 3. Unspecified Psych disorder/Bipolar disorder Currently patient is calm and able to hold a conversation. She is very appropriate. Continue with management as per Psychiatry.
[2018-05-10] MEDS: traZODone 100 MG Tablet PO PRN (20:11)
--- NOTE | 2018-05-11 11:49 | P.PNPSY ---
Subjective Chief Complaint: Psychosis Remarks: Patient seen for follow-up, chart reviewed. Discussion with nursing staff reported that patient admitted of having auditory visual hallucinations, 2 voices, showered yesterday, tearful and took medications. Patient was found sitting in hospital bed, dressed in hospital gown, noted to be calm and cooperative but tearful throughout interview. Patient states that she apologizes for her behavior yesterday. She states that she had lied before and denying any auditory or visual hallucinations and states that she does hear them , specifically to voices. She states that she had these perceptual disturbances even during her last admission which she denied because she wanted to go home. She mentions having auditory hallucinations since November but none prior to that date. She also mentions occasionally is having seen "people go by " for the past 2 years but that the auditory hallucinations started since November. She states that she was able to sleep last night after being provided medication. She states that since being started on the antipsychotic yesterday the voices are not as loud but continue to be present even during interview. He states that there are 2 voices were not telling her to do "stupid things" and the other tongue hurting more extreme commands. She denies command auditory hallucination to kill herself or hurt others. She denies any suicidal or homicidal ideations at this time. Patient continues to have paranoia and her behavior and responding to internal stimuli. Review of Systems All other systems reviewed negative except as stated in HPI Mental Status Examination Appearance: Appropriate (In hospital gown) Consciousness: Alert, Vigilant Orientation: Person, Place, Date/Time Motor Activity: Other (Uses a rolling walker) Language: Adequate Fund of Knowledge: Inadequate Attention and Concentration: Easily distracted Memory: Impaired Mood: Sad Affect: Sad (Tearful), Anxious Thought Process & Associations: Disorganized (Less disorganized today), Linear Thought Content: Hallucinations Hallucination Type: Auditory, Visual Delusion Type: Paranoid Suicidal Ideation: No Suicidal Plan: No Suicidal Intention: No Homicidal Ideation: No Homicidal Plan: No Homicidal Intention: No Insight: Fair Judgment: Impulsive Assessment and Plan - Assessment (1) Unspecified psychosis Code(s): F29 - Unspecified psychosis not due to a substance or known physiological condition Status: Acute - Plan Plan: Patient this time continues to have perceptual disturbances, although states that medication is starting to help her continue to be present. Patient also continues with paranoid regarding these hallucinations. Patient was recently started on olanzapine we will continue current dose for now with possible upward titration. We will continue to monitor mood and behavior. Hospitalist and neurology input appreciated. We will continue the recommendations. Discharge planning in progress. Justification for Continued Inpatient Stay: At risk of further decompensation at lower level care. (1) Unspecified psychosis Qualifiers: Psychosis type: brief psychotic disorder Qualified Code(s): F23 - Brief psychotic disorder
--- NOTE | 2018-05-11 14:43 | P.PNIM ---
Subjective Interval history: Patient is in no acute distress. She appears calm today. Physical Exam Vital signs: Vital Signs 05/11/18 05:13 Temperature 97.7 F Pulse Rate 99 H Blood Pressure 118/60 Pulse Oximetry 93 L Intake & Output 05/10/18 05/11/18 05/11/18 18:59 06:59 18:59 Intake Total 240 / 240 360 / 360 Balance 240 / 240 360 / 360 Weight 92.5 kg Intake: Oral 240 / 240 360 / 360 Other: # Voids 0 Narrative: Alert and oriented x 3 S1S2 CTA B/L Abd soft, nontender, normal bowel sounds. No edema of exts No focal neurological deficits. Results - Labs CBC & Chem 7: 05/08/18 04:05 05/09/18 07:55 Laboratory Results - last 24 hr 05/10/18 20:18 POC Glucose 135 H Assessment and Plan - Plan This patient is a 42 y/o AA F with a dx of Multiple sclerosis on aubagio, unspecified psychosis, bipolar disorder. The patinet is admitted under the psychiatric unit for management after an episode at home where she says she was out of control according to her family. The patient says she does not remember the episode but was told she was screaming and running around out of control and the police were called by her family. The patient is currently calm and explaining the situation and says that she was not herself during that episode. 05/11/18 Patient is calm today. Blood pressure under control. Continue norvasc. Patient is not in an MS exacerbation. OK to transfer to psych unit. IM will sign off. Psychiatry can continue to manage the patient's psychiatric issues. Please call me if needed. 1. Multiple Sclerosis Patient has a diagnosis of multiple sclerosis which was diagnosed approximately one yr ago. She follows up with a neurologist in [place]. Currently she is on aubagio at home and is compliant with her medications. She says she occasionally uses a walker when ambulating at home. I recommend that she continue to take aubagio and currently doesn not appear to be in an exacerbation. She should have regular follow up with her neurologist for continued management of MS. 2. HTN Blood pressure initially elevated in the 150s systolic. Increase dose of Norvasc to 10mg q daily. BP now under control. 3. Unspecified Psych disorder/Bipolar disorder Currently patient is calm and able to hold a conversation. She is very appropriate. Continue with management as per Psychiatry.
[2018-05-11] MEDS: Famotidine 20 MG Tablet PO SCH ×2 (15:05→20:48)
[2018-05-11] MEDS: lamoTRIgine 100 MG Tablet PO SCH ×2 (15:05→20:48)
[2018-05-11] MEDS: Gabapentin 300 MG Capsule PO SCH ×3 (15:05→17:39)
[2018-05-11] MEDS: Montelukast 10 MG Tablet PO SCH (17:39)
[2018-05-11] MEDS: amLODIPine 10 MG Tablet PO SCH (20:48)
[2018-05-11] MEDS: traZODone 100 MG Tablet PO PRN (20:48)
[2018-05-12] MEDS: Famotidine 20 MG Tablet PO SCH ×2 (08:23→20:29)
[2018-05-12] MEDS: Gabapentin 300 MG Capsule PO SCH ×3 (08:23→17:11)
[2018-05-12] MEDS: lamoTRIgine 100 MG Tablet PO SCH ×2 (08:23→20:28)
[2018-05-12] MEDS: AUBAGIO 14 MG PO SCH (08:24)
--- NOTE | 2018-05-12 11:07 | P.PNPSY ---
Subjective Chief Complaint: Psychosis Remarks: Patient seen for follow-up, chart reviewed. Discussion nursing staff reported patient was irritable all morning, compliant with medications, continues to have auditory hallucinations, noted to be paranoid still stating that the nurses have been blocking her phone calls. Patient was found sitting in hospital bed noted to be somewhat irritable initially but was able to engage adequately. Patient states that she slept well last evening, eating and drinking well, states that she plans to walk around the unit but states she has to pace herself. Patient recalls having the memory difficulties particularly in November but has been improving. Patient continued to report auditory hallucinations stating that they are still there but now command in nature but states that there is starting to decrease. She states having visited by her mother which went well yesterday. Patient endorses comments of paranoia regarding staff. Review of Systems All other systems reviewed negative except as stated in HPI Mental Status Examination Appearance: Appropriate (In hospital gown) Consciousness: Alert, Vigilant Orientation: Person, Place, Date/Time Motor Activity: Other (Uses a rolling walker) Speech: Other (low volume) Language: Adequate Fund of Knowledge: Inadequate Attention and Concentration: Easily distracted Memory: Impaired Mood: Irritable Affect: Irritable Thought Process & Associations: Disorganized (Lessening), Linear (Improving) Thought Content: Hallucinations Hallucination Type: Auditory, Visual Delusion Type: Paranoid Suicidal Ideation: No Suicidal Plan: No Suicidal Intention: No Homicidal Ideation: No Homicidal Plan: No Homicidal Intention: No Insight: Fair Judgment: Impulsive Assessment and Plan - Assessment (1) Unspecified psychosis Code(s): F29 - Unspecified psychosis not due to a substance or known physiological condition Status: Acute - Plan Plan: Patient continues with auditory hallucinations noted to be somewhat irritable and paranoid still today. We will increase olanzapine to 5 mg a.m./10 mg at bedtime. We will order repeat EKG to monitor QTc interval as last EKG reported QTC of 494 ms. Continue rest of medications. Continue to monitor mood and behavior. Hospitalist and neurologist input appreciated. Discharge planning in progress. Justification for Continued Inpatient Stay: At risk of further decompensation at lower level care. (1) Unspecified psychosis Qualifiers: Psychosis type: brief psychotic disorder Qualified Code(s): F23 - Brief psychotic disorder
[2018-05-12] MEDS: Montelukast 10 MG Tablet PO SCH (17:11)
[2018-05-12] MEDS: OLANZapine 10 MG ODT Tablet PO SCH (20:28)
[2018-05-12] MEDS: traZODone 100 MG Tablet PO PRN (20:28)
[2018-05-12] MEDS: amLODIPine 10 MG Tablet PO SCH (20:29)
--- NOTE | 2018-05-12 20:52 | ECG ---
Date Performed: 05/12/2018 Time Performed: 11:42:18 PTAGE: 42 years EKG: Sinus rhythm NORMAL ECG PREVIOUS TRACING : 05/08/2018 03.44 DOCTOR: Saravanan De Los Santos Interpretating Date/Time 05/12/2018 20:44:58
[2018-05-13] MEDS: AUBAGIO 14 MG PO SCH (08:06)
[2018-05-13] MEDS: Famotidine 20 MG Tablet PO SCH ×2 (08:08→20:34)
[2018-05-13] MEDS: Gabapentin 300 MG Capsule PO SCH ×3 (08:08→18:06)
[2018-05-13] MEDS: lamoTRIgine 100 MG Tablet PO SCH ×2 (08:09→20:34)
[2018-05-13] MEDS: SUMATRIPTAN SUCCINATE ONE NARE PRN (11:07)
[2018-05-13] MEDS: Montelukast 10 MG Tablet PO SCH (18:06)
--- NOTE | 2018-05-13 18:27 | P.PNPSY ---
Subjective Chief Complaint: Psychosis Remarks: Reviewed electronic medical records and discussed case with staff. Follow-up was conducted in the patient's room with PRIYANKA Monet present. Nurse reports that the patient is doing much better and reports decreased auditory hallucinations. She states that she has been compliant and cooperative. When patient is asked how she feels she states "very good". She reports that she slept well and has had a good appetite. She has a euthymic affect and advises that "the buffering is great today 10 times better". When asked to elaborate she states that she is able to block out more of her hallucinations. She denies any side effects from the medication. Mental Status Examination Appearance: Appropriate (In hospital gown) Consciousness: Alert, Vigilant Orientation: Person, Place, Date/Time Motor Activity: Other (Uses a rolling walker) Speech: Other (low volume) Language: Adequate Fund of Knowledge: Inadequate Attention and Concentration: Easily distracted Memory: Impaired Mood: Irritable Affect: Irritable Thought Process & Associations: Disorganized (Lessening), Linear (Improving) Thought Content: Hallucinations Hallucination Type: Auditory, Visual Delusion Type: Paranoid Suicidal Ideation: No Suicidal Plan: No Suicidal Intention: No Homicidal Ideation: No Homicidal Plan: No Homicidal Intention: No Insight: Fair Judgment: Impulsive Assessment and Plan - Assessment (1) Unspecified psychosis Code(s): F29 - Unspecified psychosis not due to a substance or known physiological condition Status: Acute - Plan Plan: Patient will be reevaluated by the attending psychiatrist. Continue with current treatment plan. Justification for Continued Inpatient Stay: Moving this patient to a less restrictive environment would likely result in decompensation. (1) Unspecified psychosis Qualifiers: Psychosis type: brief psychotic disorder Qualified Code(s): F23 - Brief psychotic disorder
[2018-05-13] MEDS: traZODone 100 MG Tablet PO PRN (20:33)
[2018-05-13] MEDS: OLANZapine 10 MG ODT Tablet PO SCH (20:34)
[2018-05-13] MEDS: amLODIPine 10 MG Tablet PO SCH (20:34)
[2018-05-14] MEDS: SUMATRIPTAN SUCCINATE ONE NARE PRN (03:55)
[2018-05-14] MEDS: lamoTRIgine 100 MG Tablet PO SCH ×2 (08:11→21:20)
[2018-05-14] MEDS: AUBAGIO 14 MG PO SCH (08:11)
[2018-05-14] MEDS: Gabapentin 300 MG Capsule PO SCH ×3 (08:11→17:47)
[2018-05-14] MEDS: Famotidine 20 MG Tablet PO SCH ×2 (08:11→23:53)
[2018-05-14] MEDS: Montelukast 10 MG Tablet PO SCH (17:47)
--- NOTE | 2018-05-14 19:50 | P.PNPSY ---
Subjective Chief Complaint: Psychosis Remarks: Reviewed electronic medical records and discussed case with staff. Follow-up was conducted in patient's room. She states she feels "excellent". She reports sleeping and eating well. She denies any suicidal ideation. Her affect is euthymic. She reports that she spoke with her family via phone and that they feel she is doing much better. She is hopeful for discharge. Mental Status Examination Appearance: Appropriate (In hospital gown) Consciousness: Alert, Vigilant Orientation: Person, Place, Date/Time Motor Activity: Other (Uses a rolling walker) Speech: Other (low volume) Language: Adequate Fund of Knowledge: Inadequate Attention and Concentration: Easily distracted Memory: Impaired Mood: Irritable Affect: Irritable Thought Process & Associations: Disorganized (Lessening), Linear (Improving) Thought Content: Hallucinations Hallucination Type: Auditory, Visual Delusion Type: Paranoid Suicidal Ideation: No Suicidal Plan: No Suicidal Intention: No Homicidal Ideation: No Homicidal Plan: No Homicidal Intention: No Insight: Fair Judgment: Impulsive Assessment and Plan - Assessment (1) Unspecified psychosis Code(s): F29 - Unspecified psychosis not due to a substance or known physiological condition Status: Acute - Plan Plan: Patient will be reevaluated by the attending psychiatrist. Continue with current treatment plan. Justification for Continued Inpatient Stay: Moving this patient to a less restrictive environment would likely result in decompensation. (1) Unspecified psychosis Qualifiers: Psychosis type: brief psychotic disorder Qualified Code(s): F23 - Brief psychotic disorder
[2018-05-14] MEDS: traZODone 100 MG Tablet PO PRN (21:20)
[2018-05-14] MEDS: amLODIPine 10 MG Tablet PO SCH (21:20)
[2018-05-14] MEDS: OLANZapine 10 MG ODT Tablet PO SCH (21:20)
[2018-05-15] MEDS: Gabapentin 300 MG Capsule PO SCH ×2 (08:17→12:40)
[2018-05-15] MEDS: lamoTRIgine 100 MG Tablet PO SCH (08:17)
[2018-05-15] MEDS: Famotidine 20 MG Tablet PO SCH (08:17)
[2018-05-15] MEDS: AUBAGIO 14 MG PO SCH (08:20)
--- NOTE | 2018-05-15 12:00 | P.DSPSY ---
Psychiatry Discharge Summary Inpatient Psychiatric care?: Yes Advance Directives: No Reason for Unknown:: Other Other Reason for Unknown: Doesn't have one Mental Health Advance Directive: No Health Care Proxy: No - Admission Admission Date: May 08, 2018 10:07 - Admission Diagnosis (1) Unspecified psychosis Code(s): F29 - Unspecified psychosis not due to a substance or known physiological condition Brief History: The patient is a 42-year-old [facility] woman, domiciled with her mother and 3 kids in [place], single, unemployed, with a psychiatric history of bipolar disorder, anxiety, one previous psychiatric hospitalization here at [place] earlier this month, no previous suicide attempts, no history of self cutting behavior, outpatient care in [facility], past medical history of hypertension and multiple sclerosis, who came to the hospital after falling in the home and noted to be responding to internal stimuli which concern for psychosis led to admission to the inpatient psychiatry unit for further evaluation and management. Patient was found ambulating on the unit noted to be somewhat patient and requesting to be discharged back home. Patient states that she had a "issue with my mom" and states that she was having an MS episode which she describes feeling dizzy and states that she "did too much" referring to physical activity. She states that her mother called EMS as she had gone to her room to rest and states not knowing why there was concern of patient having to be brought to the hospital. She reports sleeping well, denying any depressed mood, denying any paranoid or persecutory delusions stating that the medications have been helping and has been compliant with them since her discharge from previous hospitalization here in [place]. Patient states that she feels that her recent change in behavior has been from the steroid use but denies any changes in energy concentration, or mood. Patient states that at times she talks to herself while watching a football game as she is excited seeing support but denies any other incidents where she is talking to self in contrast to report by nursing staff of patient being noted to be talking to self at times. Patient states she has outpatient mental health follow-up at [facility] which her next appointment is 17 May. She states that there is no reason for her to be here if she has a plan to continue her treatment at home along with plan to not to do as much activity in the context of her MS. Patient currently under [place] act but agreeable to sign voluntary during this period of observation and patient to continue home regimen of Lamictal, trazodone, Paxil and Seroquel. At this time patient denies any SI, HI, AVH or delusions. Recent EKG showed QTc interval of 449 ms. Collateral information obtained by treatment team stated the patient's mother was concerned of patient responding to internal stimuli at home and has plans to visit patient later this afternoon. Rest of history unchanged from last admission on 04/25/18 -05/02/18) PPHx: psychiatric history of bipolar disorder, anxiety, one psychiatric hospitalization here in [place], no previous suicide attempts, no history of self cutting behavior, outpatient care in [facility] PMHx: medical history hypertension and multiple sclerosis, who came to the hospital with right-sided weakness and recurrent falls Substance Hx: Patient denies that use of illegal drugs Family Hx: No family psychiatric history Social Hx: The patient was born and raised in [place], living in the [facility] for about 30 years. She lives now with her mother and 3 kids, 50-year- old, 8-year-old, 16-year-old. She is single. Unemployed at the moment. Supported by her family. [employer] jehovah's witness. Her highest level of education is a bachelor degree in communications. Tobacco Use In Past 30 Days: No How Often Do You Have a Drink Containing Alcohol: Never Hospital Course: Hospital course: Patient was admitted to a locked, inpatient psychiatric unit. Appropriate precautions were in place throughout patient's hospital stay. Patient was seen and examined on the unit by psychiatry and also visited by counselor. Psychotropic medications were well tolerated. There was a good response to to inpatient treatment plan noted by nursing and provider observations, and the patient reported improvements in mood, anxiety, and there was no evidence of any suicidality or homicidality and no evidence of hallucinations or delusions at time of discharge. Patient expressed good insight as to the triggers for her decompensation and is determined to practice healthy coping behaviors in order to ensure adequate rest and sleep and will ask for help when she feels that her condition is worsening. Patient also has a sister who is staying with her to help her in this transition. Psychiatric follow-up as arranged by counselor. Patient is also to follow up with primary care. I have counseled the patient to abstain from substances of abuse including cannabis and have counseled patient to return to the psychiatric emergency room for any concerning symptoms as part of a general safety plan. - Discharge Discharge Date: 05/15/18 - Discharge Diagnosis (1) Unspecified psychosis Code(s): F29 - Unspecified psychosis not due to a substance or known physiological condition Status: Acute Discharge Disposition: Home - Discharge Instructions Discharge Diet: Regular Diet - Discharge Time > 30 minutes Mental Status Examination Appearance: Appropriate (In hospital gown) Consciousness: Alert Orientation: x4 Motor Activity: Normal gait Speech: Unremarkable Language: Adequate Fund of Knowledge: Adequate Attention and Concentration: Adequate Memory: Unremarkable Mood: Appropriate Affect: Appropriate Thought Process & Associations: Intact, Logical, Goal directed Thought Content: Appropriate Hallucination Type: None Delusion Type: None Suicidal Ideation: No Suicidal Plan: No Suicidal Intention: No Homicidal Ideation: No Homicidal Plan: No Homicidal Intention: No Insight: Fair Judgment: Impulsive Discharge/Advance Care Plan - Results Vital Signs: Last Vital Signs Temp 98.0 F 05/15/18 05:58 Pulse 87 05/15/18 05:58 Resp 17 05/15/18 05:58 BP 116/57 L 05/15/18 05:58 Pulse Ox 94 L 05/15/18 05:58 Lab Results: Laboratory Results Hemoglobin A1c 6.1 % (4.3-6.0) H 05/09/18 07:55 Triglycerides 80 mg/dL (42-150) 05/09/18 07:55 Cholesterol 203 mg/dL (120-200) H 05/09/18 07:55 LDL Cholesterol, Calc 102 mg/dL (0-99) H 05/09/18 07:55 HDL Cholesterol 84.9 mg/dL (40.0-60.0) H 05/09/18 07:55 Summary of Procedures: None ordered Imaging: ITS Impressions Chest X-Ray 05/08/18 04:01 CONCLUSION: 1. Negative portable chest. Head CT 05/08/18 04:58 CONCLUSION: 1. No acute intracranial abnormality. . Pending Results: None - Medications Number of antipsychotic medications at discharge: 1 - Discharge Care Plan Goals to Promote Your Health: * To prevent worsening of your condition and complications * To maintain your health at the optimal level Directions to Meet Your Goals: Take your medications as prescribed Follow your dietary instruction Follow activity as directed Keep your appointments as scheduled Take your immunizations and boosters as scheduled If your symptoms worsen call your PCP, if no PCP go to Urgent Care Center or Emergency Room For 06/12 questions related to your inpatient stay or results of tests pending at discharge, please contact Dr. Richardson Villa MD at Smoking is Dangerous to Your Health. Avoid second hand smoking (1) Unspecified psychosis Qualifiers: Psychosis type: brief psychotic disorder Qualified Code(s): F23 - Brief psychotic disorder (1) Unspecified psychosis Qualifiers: Psychosis type: brief psychotic disorder Qualified Code(s): F23 - Brief psychotic disorder
== END 2018-05-15 14:20 | disposition home or self-care (01) | DRG 885 ==
LOC: NEPC 03:39 → NEDA 10:07 → H4EA 15:15 → NEDA 15:30
PROVIDERS: ADMIT Student in an Organized Health Care Education/Training Program; ATTEND Student in an Organized Health Care Education/Training Program
CPT/HCPCS: 70450; 71010; 71045; 80048; 80053; 80061; 80307; 82550; 82552; 82948; 82962; 83036; 83690; 83735; 84484; 84703; 85025; 85379; 90761; 90774; 90784; 93005; 96361; 96374; 97110; 97161; 97530; 99285; C8952; J2060; J7030; Q0163